=== PATIENT | female | born 1980 | race Caucasian/White ===

== ENCOUNTER 2016-11-24 20:16 | Emergency (ER) | payer MEDICAID ==
[2016-11-24 20:32] VITALS: BP 132/89
[2016-11-24] MEDS ORDERED: TETANUS/DIPHTHERIA/PERTUSSIS 0.5 ML SYRINGE IM ONE ×2 (20:46→20:55)
[2016-11-24] MEDS ORDERED: SILVER SULFADIAZINE CREAM 25 GM TUBE TOP STA (20:47)
--- NOTE | 2016-11-24 20:49 | ED Physician Documentation ---
PD HPI MAJOR BURN - Stated complaint Stated Complaint: BURN ON FINGER - Chief complaint Chief Complaint: Burn - History obtained from History obtained from: Patient - History of Present Illness Timing - onset: Other (Cooking at home about 4 hours ago and got a hot oil burn on the right fourth finger dorsally. 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, Tubal ligation, Other - Present Medications Home Medications: Ambulatory Orders Medication Instructions Recorded Confirmed Ferrous Sulfate [Iron Supplement] 325 mg ORAL DAILY 10/25/14 11/24/16 Multivitamin [Daily Multiple 1 cap ORAL BIDAC 10/25/14 11/24/16 Vitamin] - Allergies Allergies/Adverse Reactions: Allergies Allergy/AdvReac Type Severity Reaction Status Date / Time No Known Drug Allergies Allergy Verified 11/24/16 20:28 - Social History Does the pt smoke?: Yes Smoking Status: Current every day smoker Does the pt drink ETOH?: No Does the pt have substance abuse?: No - Immunizations Immunizations are current?: Yes - POLST Patient has POLST: No PD ED PE NORMAL - Vitals Vital signs reviewed: Yes - General General: Alert and oriented X 3, No acute distress - Extremities Extremities: Other (On the dorsal part of the fourth finger on the right there is second-degree burn especially of the middle phalanx with limited range of motion due to pain.) - Neuro Neuro: Alert and oriented X 3, Normal speech - Psych Psych: Normal mood, Normal affect Results - Vitals Vitals: Vital Signs - 24 hr 11/24/16 20:29 Temperature 36.4 C L Heart Rate 90 Respiratory 16 Rate Blood Pressure 132/89 H O2 Saturation 100 Oxygen O2 Source Room air PD MEDICAL DECISION MAKING - ED course ED course: She presents with second-degree burn to the dorsum of the fourth right finger. Range of motion exercises were encouraged. Otherwise this can be treated conservatively. She declined prescription pain medication. Tetanus was updated. Departure - Departure Disposition: 01 Home, Self Care Clinical Impression: Burn of hand Qualifiers: Encounter type: initial encounter Laterality: right Burn degree: second degree Qualified Code(s): T23.201A - Burn of second degree of right hand, unspecified site, initial encounter Condition: Good Record reviewed to determine appropriate education?: Yes Instructions: ED Burn D 2nd Comments: Keep the current dressing on for a day, after that you can wash it briefly with soap and water and then apply bacitracin ointment which is available over-the- counter and keep it covered. As discussed he should start doing range of motion exercises gently within the next few days to prevent loss of function. Return for signs of infection which would include redness, drainage, increased pain or fever. Your blood pressure was elevated today on check into the emergency department. This does not mean that you have hypertension, it is a common phenomenon to come to the emergency department and have elevated blood pressure. I recommend that she see her primary care physician within the week to have it rechecked when you are feeling better.
[2016-11-24] MEDS ORDERED: SILVER SULFADIAZINE CREAM 25 GM TUBE TOP ONE (20:55)
== END 2016-11-24 21:08 | disposition home or self-care (01) ==
LOC: ED 20:16
DX: T23.221A Burn of second degree of single right finger (nail) except thumb, initial encounter (principal); T31.0 Burns involving less than 10% of body surface; X10.2XXA Contact with fats and cooking oils, initial encounter; Y93.G3 Activity, cooking and baking; Y92.009 Unspecified place in unspecified non-institutional (private) residence as the place of occurrence of the external cause; Z23 Encounter for immunization; I10 Essential (primary) hypertension; F17.200 Nicotine dependence, unspecified, uncomplicated
CPT/HCPCS: 90471; 90715; 99282; 99283; A9270

== ENCOUNTER 2018-03-09 17:34 | Emergency (ER) | payer MEDICAID ==
--- NOTE | 2018-03-09 18:39 | XRAY Report ---
Reason: pain Procedure Date: 03/09/2018 Accession Number: [id number] / [id number] Procedure: XR - Foot 3 View RT CPT Code: FULL RESULT: EXAM: RIGHT FOOT RADIOGRAPHY EXAM DATE: 03/09/2018 06:09 PM. CLINICAL HISTORY: Right foot pain. Inversion injury. COMPARISON: None. TECHNIQUE: 3 views. FINDINGS: Bones: No acute fracture or bony lesion. Plantar calcaneal spur. Joints: Normal. No subluxations. Soft Tissues: Soft tissue edema. No radiopaque foreign bodies. IMPRESSION: 1. No acute osseous abnormalities. RADIA
--- NOTE | 2018-03-09 18:41 | XRAY Report ---
Reason: pain Procedure Date: 03/09/2018 Accession Number: [id number] / [id number] Procedure: XR - Ankle 3 View RT CPT Code: FULL RESULT: EXAM: RIGHT ANKLE RADIOGRAPHY EXAM DATE: 03/09/2018 06:09 PM. CLINICAL HISTORY: Inversion injury. Right foot pain. COMPARISON: None. TECHNIQUE: 3 views. FINDINGS: Bones: No acute fracture or bony lesion. Small plantar calcaneal spur. Joints: Normal. No effusion. No subluxations. The ankle mortise is normally aligned. Soft Tissues: Soft tissue swelling. IMPRESSION: 1. No acute osseous abnormalities. RADIA
[2018-03-09 19:33] VITALS: BP 134/78
--- NOTE | 2018-03-09 20:02 | ED Physician Documentation ---
PD HPI LOWER EXT INJURY - Stated complaint Stated Complaint: R FOOT PX - Chief complaint Chief Complaint: Ext Problem - History obtained from History obtained from: Patient - History of Present Illness PD HPI LOW EXT INJURY LOCATION: Right, Ankle, Foot Type of injury: Twist Where injury occurred: Home Timing - onset: Enter time (15:30), Today Timing - duration: Hours Timing - details: Abrupt onset Pain level max: 10 Pain level now: 7 Improved by: Rest Worsened by: Moving, Palpating Associated symptoms: No: Weakness, Numbness, Tingling, Swelling, Discolored Similar symptoms before: Has not had sx before Recently seen: Not recently seen - Additional information Additional information: while walking in kitchen, patient put weight onto right foot and the foot twisted at the ankle, causing sudden onset right foot and ankle pain. Pain has steadily progressed during the day, no improvement with ibuprofen. She says she is unable to weight-bear Review of Systems Musculoskeletal: reports: Extremity pain, Joint pain, Pain with weight bearing. 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, Tubal ligation, Other - Present Medications Home Medications: Ambulatory Orders Medication Instructions Recorded Confirmed Ferrous Sulfate [Iron Supplement] 325 mg ORAL DAILY 10/25/14 11/24/16 Multivitamin [Daily Multiple 1 cap ORAL BIDAC 10/25/14 11/24/16 Vitamin] Hydrocodone/Acetaminophen 1 - 2 each PO Q6H PRN #14 tablet 03/09/18 [Hydrocodon-Acetaminophen 5-325] - Allergies Allergies/Adverse Reactions: Allergies Allergy/AdvReac Type Severity Reaction Status Date / Time No Known Drug Allergies Allergy Verified 03/09/18 17:47 - Social History Does the pt smoke?: Yes Smoking Status: Current every day smoker Does the pt drink ETOH?: No Does the pt have substance abuse?: No - Immunizations Immunizations are current?: Yes - POLST Patient has POLST: No PD ED PE NORMAL - Vitals Vital signs reviewed: Yes - General General: Alert and oriented X 3, No acute distress (NAD at rest, but pain is reproducible with palpation of foot and ankle (right)), Well developed/nourished - Derm Derm: Normal color, Warm and dry - Extremities Extremities: No deformity, No edema, Other (reports tenderness with any palpation (including without applying pressure beyond the weight of my hand to check PT/DP pulses) diffusely right foot and ankle) - Neuro Neuro: No motor deficit, No sensory deficit Results - Vitals Vitals: Vital Signs - 24 hr 03/09/18 03/09/18 03/09/18 17:44 19:31 19:56 Temperature 37.4 C Heart Rate 110 H 83 Respiratory 20 18 17 Rate Blood Pressure 153/84 H 134/78 H O2 Saturation 100 100 03/09/18 20:31 Temperature Heart Rate Respiratory 17 Rate Blood Pressure O2 Saturation Oxygen O2 Source Room air - Rads (name of study) right foot xrays Radiology: Prelim report reviewed, See rad report right ankle xray Radiology: Prelim report reviewed, See rad report PD MEDICAL DECISION MAKING - ED course Complexity details: reviewed results, re-evaluated patient, considered differential, d/w patient Departure - Departure Disposition: 01 Home, Self Care Clinical Impression: Sprain of foot, right, Sprain of ankle, right Condition: Good Instructions: ED Crutch Walking, ED Sprain Foot, ED Sprain Ankle Follow-Up: [facility] [Provider Group] [facility] [Provider Group] Prescriptions: Hydrocodone/Acetaminophen [Hydrocodon-Acetaminophen 5-325] 1 - 2 each PO Q6H PRN #14 tablet PRN Reason: pain
[2018-03-09] MEDS ORDERED: HYDROcod/ACETAM 5/325 MG TABLET PO STA (20:12)
== END 2018-03-09 20:47 | disposition home or self-care (01) ==
LOC: ED 17:34
DX: S93.601A Unspecified sprain of right foot, initial encounter (principal); S93.401A Sprain of unspecified ligament of right ankle, initial encounter; X50.1XXA Overexertion from prolonged static or awkward postures, initial encounter; Y93.01 Activity, walking, marching and hiking; Y92.89 Other specified places as the place of occurrence of the external cause; I10 Essential (primary) hypertension; F17.200 Nicotine dependence, unspecified, uncomplicated
CPT/HCPCS: 73610; 73630; 99283; A9270

== ENCOUNTER 2018-04-29 18:39 | Observation (INO) | payer MEDICAID ==
[2018-04-29 19:24] LABS: ALBUMIN 4.1 g/dL (3.2-5.5); ALBUMIN/GLOBULIN RATIO 1.2 (1.0-2.2); BILIRUBIN,TOTAL 0.5 mg/dL (0.2-1.0); CALCIUM 8.6 mg/dL (8.5-10.3); CREATININE 0.8 mg/dL (0.4-1.0); TOTAL PROTEIN 7.5 g/dL (6.7-8.2)
--- NOTE | 2018-04-29 19:30 | XRAY Report ---
Reason: Chest Pain Procedure Date: 04/29/2018 Accession Number: [id number] / [id number] Procedure: XR - Chest 1 View X-Ray CPT Code: 17932 FULL RESULT: EXAM: CHEST RADIOGRAPHY EXAM DATE: 04/29/2018 07:21 PM. CLINICAL HISTORY: Chest Pain. COMPARISON: CHEST 2 VIEW PA/LAT 12/08/2015 8:28 PM. TECHNIQUE: 1 view. FINDINGS: Cardiac leads overlie the chest. Heart size is normal. No consolidation, pleural effusion, or pneumothorax. IMPRESSION: Normal single view chest. RADIA
[2018-04-29 19:36] LABS: BASOPHILS # (AUTO) 0.1 10^3/uL (0.0-0.1); BASOPHILS % (AUTO) 1.2 %; EOSINOPHILS # (AUTO) 0.1 10^3/uL (0.0-0.7); EOSINOPHILS % (AUTO) 2.1 %; LYMPHOCYTES # (AUTO) 2.2 10^3/uL (1.5-3.5); LYMPHOCYTES % (AUTO) 43.5 %; MEAN CORPUSCULAR HEMOGLOBIN 14.6 pg (27.0-31.0); MEAN CORPUSCULAR HGB CONC 26.6 g/dL (32.0-36.0); MEAN CORPUSCULAR VOLUME 54.7 fL (81.0-99.0); MEAN PLATELET VOLUME 8.2 fL (7.9-10.8); MONOCYTES # (AUTO) 0.6 10^3/uL (0.0-1.0); NEUTROPHILS # (AUTO) 2.1 10^3/uL (1.5-6.6); NEUTROPHILS % (AUTO) 42.2 %; PLT - PLATELET COUNT 187 10^3/uL (130-450); RED BLOOD COUNT 4.31 10^6/uL (4.20-5.40); RED CELL DISTRIBUTION WIDTH 20.7 % (12.0-15.0); WHITE BLOOD COUNT 5.1 x10^3/uL (4.8-10.8)
[2018-04-29 19:39] LABS: HGB - HEMOGLOBIN 6.3 g/dL (12.0-16.0)
[2018-04-29] MEDS ORDERED: ALBUTEROL NEB 2.5 MG/3 ML INH STA (19:39)
[2018-04-29] MEDS ORDERED: SODIUM CHLORIDE 0.9% 1,000 ML IV ONE (19:39)
--- NOTE | 2018-04-29 19:40 | ED Physician Documentation ---
History of Present Illness - Stated complaint Stated Complaint: COUGH/CONGESTION - Chief complaint Chief Complaint: Resp - History obtained from History obtained from: Patient - History of Present Illness Timing: How many weeks ago (1) Pain level max: 3 Pain level now: 1 Improved by: rest Worsened by: exertion - Additonal information Additional information: 37-year-old female presents to the emergency department with feeling tired and weak for the past several weeks. Unable to sleep her floors or walk up stairs without stopping to catch her breath. Has a history of iron deficiency anemia and was receiving iron. She has also had fevers and cough over the past several days. Feels like her chest is tight and occasionally has chest pain with exertion. Review of Systems Ten Systems: 10 systems reviewed and negative Constitutional: reports: Fever Nose: reports: Rhinorrhea / runny nose, Congestion Cardiac: reports: Chest pain / pressure (sharp, sometimes pressure) Respiratory: reports: Cough GI: denies: Abdominal Pain, Nausea, Vomiting, Diarrhea, Hematemesis, Bloody / black stool : reports: Vaginal bleeding (has a history of heavy menses, thought to cause her anemia) Skin: denies: Rash Musculoskeletal: denies: Neck pain Neurologic: denies: Focal weakness, Numbness, Syncope, Seizure, Confused, Headache PD PAST MEDICAL HISTORY - Past Medical History Cardiovascular: Hypertension Respiratory: None Neuro: Headaches Endocrine/Autoimmune: None GI: None 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 : Frequency HEENT: None Psych: None Musculoskeletal: None Derm: None - Past Surgical History 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, Tubal ligation, Other - Present Medications Home Medications: Ambulatory Orders Medication Instructions Recorded Confirmed Multivitamin [Daily Multiple 1 cap ORAL BIDAC 10/25/14 11/24/16 Vitamin] - Allergies Allergies/Adverse Reactions: Allergies Allergy/AdvReac Type Severity Reaction Status Date / Time No Known Drug Allergies Allergy Verified 04/29/18 18:52 - Social History Does the pt smoke?: Yes Smoking Status: Current every day smoker Does the pt drink ETOH?: No Does the pt have substance abuse?: No - Immunizations Immunizations are current?: Yes - POLST Patient has POLST: No PD ED PE NORMAL - Vitals Vital signs reviewed: Yes - General General: Alert and oriented X 3, No acute distress, Other (Pale appearing female. Pale conjunctiva) - HEENT HEENT: PERRL, Ears normal, Moist mucous membranes, Pharynx benign - Neck Neck: Supple, no meningeal sign - Cardiac Cardiac: RRR - Respiratory Respiratory: No respiratory distress, Other (Mild wheezing bilaterally) - Abdomen Abdomen: Soft, Non tender, Non distended - Rectal Rectal: Other (Patient adamantly refuses a rectal exam.) - Derm Derm: Warm and dry, No rash - Extremities Extremities: No edema, No calf tenderness / cord - Neuro Neuro: Alert and oriented X 3 Results - Vitals Vitals: Vital Signs - 24 hr 04/29/18 04/29/18 04/29/18 18:51 19:00 20:35 Temperature 38.1 C H Heart Rate 111 H 97 97 Respiratory 20 16 14 Rate Blood Pressure 150/89 H 137/77 H O2 Saturation 100 100 04/29/18 04/29/18 20:38 20:40 Temperature Heart Rate 98 Respiratory 18 102 H Rate Blood Pressure 126/73 O2 Saturation 99 Oxygen O2 Source Room air - EKG (time done) 1857 Rate: Rate (enter#) (101) Rhythm: Sinus tachycardia [place]: Normal Intervals: Normal ID QRS: Normal Ischemia: Normal ST segments - Labs Labs: Laboratory Tests 04/29/18 04/29/18 04/29/18 19:05 19:05 19:05 WBC 5.1 RBC 4.31 Hgb 6.3 L* Hct 23.6 L MCV 54.7 L MCH 14.6 L MCHC 26.6 L RDW 20.7 H Plt Count 187 MPV 8.2 Neut # (Auto) 2.1 Lymph # (Auto) 2.2 [place] # (Auto) 0.6 Eos # (Auto) 0.1 Baso # (Auto) 0.1 Absolute Nucleated RBC 0.00 Band Neuts % (Manual) Not Reportable Abnorm Lymph % (Manual) Not Reportable Nucleated RBC % 0.1 Neutrophils # (Manual) Not Reportable Lymphocytes # (Manual) Not Reportable Monocytes # (Manual) Not Reportable Eosinophils # (Manual) Not Reportable Basophils # (Manual) Not Reportable Differential Comment MANUAL=AUTO DIFF Manual Slide Review Indicated Platelet Estimate NORMAL (130-450,000) Platelet Morphology 1+ LARGE PLATELETS RBC Morph Micro Appear 3+ MICROCYTOSIS Sodium 131 L Potassium 3.4 L Chloride 99 L Carbon Dioxide 23 Anion Gap 9.0 BUN 8 Creatinine 0.8 Estimated GFR (MDRD) 80 L Glucose 99 Calcium 8.6 Iron TIBC % Saturation Transferrin Total Bilirubin 0.5 AST 28 ALT 17 Alkaline Phosphatase 20 L Troponin I < 0.04 Total Protein 7.5 Albumin 4.1 Globulin 3.4 Albumin/Globulin Ratio 1.2 Lipase 40 Influenza A (Rapid) Influenza B (Rapid) 04/29/18 04/29/18 19:05 19:46 WBC RBC Hgb Hct MCV MCH MCHC RDW Plt Count MPV Neut # (Auto) Lymph # (Auto) [place] # (Auto) Eos # (Auto) Baso # (Auto) Absolute Nucleated RBC Band Neuts % (Manual) Abnorm Lymph % (Manual) Nucleated RBC % Neutrophils # (Manual) Lymphocytes # (Manual) Monocytes # (Manual) Eosinophils # (Manual) Basophils # (Manual) Differential Comment Manual Slide Review Platelet Estimate Platelet Morphology RBC Morph Micro Appear Sodium Potassium Chloride Carbon Dioxide Anion Gap BUN Creatinine Estimated GFR (MDRD) Glucose Calcium Iron 9 L TIBC 479 H % Saturation 2 L Transferrin 342 Total Bilirubin AST ALT Alkaline Phosphatase Troponin I Total Protein Albumin Globulin Albumin/Globulin Ratio Lipase Influenza A (Rapid) Negative Influenza B (Rapid) Negative - Rads (name of study) Chest x-ray Radiology: Prelim report reviewed, EMP read contemporaneously, See rad report (No acute disease) PD MEDICAL DECISION MAKING - ED course Complexity details: reviewed old records, reviewed results, re-evaluated patient, considered differential, d/w patient, d/w family, d/w framing consultant ED course: 37-year-old female presents to the emergency department with what appears to be symptomatic anemia. She is easily fatigued and out of breath. Has a history of iron deficiency anemia from heavy menstrual bleeding. Adamantly refuses a rectal examination here. Given her symptoms of chest pain and exertional shortness of breath and very limited ability to walk across the room without becoming fatigued, will place in observation for blood transfusion. Cardiac enzymes are negative. No acute findings on EKG. Discussed the case with the hospitalist who accepts. This document was made in part using voice recognition software. While efforts are made to proofread this document, sound alike and grammatical errors may occur. Departure - Departure Disposition: ED Place in Observation Clinical Impression: Viral syndrome, Symptomatic anemia, Iron deficiency Condition: Stable
[2018-04-29 20:09] LABS: DIFFERENTIAL COMMENT MANUAL=AUTO DIFF; PLATELET ESTIMATE, MANUAL NORMAL (130-450,000) (NORMAL); PLATELET MORPHOLOGY 1+ LARGE PLATELETS (NORMAL)
[2018-04-29 20:16] LABS: % IRON SATURATION 2 % (20-50); IRON 9 ug/dL (28-170); TOTAL IRON BINDING CAPACITY 479 ug/dL (250-450); TRANSFERRIN 342 mg/dL (192-382)
[2018-04-29] MEDS ORDERED: NICOTINE 14 MG PATCH TOP STA (21:38)
[2018-04-29] MEDS ORDERED: POTASSIUM CHLORIDE 20 MEQ TABLET PO STA (21:42)
[2018-04-29] MEDS: SODIUM CHLORIDE FLUSH 0.9% 10 ML SYRINGE IVP PRN (22:24)
[2018-04-30] MEDS ORDERED: SODIUM CHLORIDE 0.9% 500 ML IV ONE (01:06)
[2018-04-30] MEDS: SODIUM CHLORIDE FLUSH 0.9% 10 ML SYRINGE IVP SCH ×2 (01:26→08:26)
[2018-04-30] MEDS: SODIUM CHLORIDE FLUSH 0.9% 10 ML SYRINGE IVP PRN (01:26)
[2018-04-30] MEDS ORDERED: ACETAMINOPHEN 325 MG TABLET PO PRN (03:01)
--- NOTE | 2018-04-30 03:25 | HISTORY & PHYSICAL EXAMINATION ---
Chief Complaint - Chief Complaint Chief Complaint: fatigue, random chest pain History of Present Illness - Admitted From Admitted From:: [facility] ED - History Obtained From History obtained from: patient - History of Present Illness HPI Comment/Other: Patient is a 37 y/o female who presented to the ED with complain of random wandering chest pain which has been going on for about 1 week. She has also been very fatigued to the point where she is having difficulty picking up a pot of coffee. She gets significantly winded going up a flight of stairs. She is unable to walk a block. She denies regular NSAID use. She denies dark tarry stool or blood in her stools. She rarely drinks alcohol. She reports dizziness sometimes. She reports always feeling "freezing" cold but has a strong craving for ice (pica). She reports having very heavy periods. She had similar symptoms in 2014 for which she was diagnosed with iron deficiency anemia. She was seen by hem/onc and went to the [facility] for iron infusions. She used to be on iron supplements but stopped because of constipation. She would then spuriously take them. She was found to have a hemoglobin of 6.3 with low iron level, high TIBC and low iron saturation levels. Her last Hgb in our system was 13 in November of 2014. As a result of these findings she is being admitted as observation for PRBC transfusion. She denies abd pain, nausea, vomiting or diarrhea. 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 Father: Grave's Disease, Hypertension. Brother 1: Dideased 2/2 MVA. Brother 2: Multiple chronic illness. children: asthma Living arrangement: At home Living Situation: With family - Substance History Use: Uses substance without health or social issues: NONE ("candy" (cannabinoid edibles)), Tobacco - POLST Patient has POLST: No POLST Status: Full Code Meds/Allgy - Home Medications Home Medications: Ambulatory Orders Medication Instructions Recorded Confirmed Multivitamin [Daily Multiple 1 cap ORAL BIDAC 10/25/14 11/24/16 Vitamin] - Allergies Allergies/Adverse Reactions: Allergies Allergy/AdvReac Type Severity Reaction Status Date / Time No Known Drug Allergies Allergy Verified 04/29/18 18:52 Review of Systems - Constitutional Constitutional: reports: Fatigue, Chills - Eyes Eyes: denies: Pain, Blurred vision, Dipolpia - Ears, Nose & Throat Ears, Nose & Throat: denies: Ear pain, Hearing loss, Nasal pain, Sore throat - Cardiovascular Cariovascular: reports: Chest pain, Lightheadedness - Respiratory Respiratory: reports: Cough, SOB with exertion. denies: Wheezing - Gastrointestinal Gastrointestinal: denies: Abdominal pain, Abdominal distention, Diarrhea, Black stools, Bloody stools, Nausea, Vomiting - Genitourinary Genitourinary: denies: Dysuria, Frequency, Urgency, Hematuria - Musculoskeletal Musculoskeletal: denies: Muscle pain, Back pain - Neurological Neurological: denies: Headache, Numbness - Psychiatric Psychiatric: denies: Depression, Anxiety - Endocrine Endocrine: denies: Polyuria, Polydypsia, Polyphagia - Hematologic/Lymphatic Hematologic/Lymphatic: reports: Anemia Prior Level of Functionality: She is completely independent in activities of daily living. She lives with her family. Has 4 children. Exam - Vital Signs Vital Signs: Vital Signs x48h Temp Pulse Pulse Resp BP BP Pulse Ox 04/30/18 02:50 37.2 C 86 18 130/52 L 04/30/18 02:20 37.4 C 90 18 123/60 04/30/18 01:13 37.7 C H 90 18 124/62 04/30/18 00:14 37.4 C 91 16 127/70 100 04/29/18 22:50 37.4 C 93 18 126/67 04/29/18 22:34 37.8 C H 97 16 125/62 04/29/18 22:32 37.8 C H 97 16 125/62 100 04/29/18 21:45 98.6 C H 96 18 130/65 100 04/29/18 20:40 102 H 04/29/18 20:38 98 18 126/73 99 04/29/18 20:35 97 14 - Physical Exam General Appearance: positive: No acute distress Eyes Bilateral: positive: Normal inspection, PERRL, EOMI ENT: positive: ENT inspection nml, Pharynx nml, No signs of dehydration Neck: positive: Nml inspection, Thyroid nml, No JVD, Trachea midline, Thyromegaly Respiratory: positive: Chest non-tender, Wheezes (smoker) Cardiovascular: positive: Tachycardia Abdomen: positive: Non-tender, No organomegaly, Nml bowel sounds, No distention. negative: Guarding, Rebound Rectal: positive: Other (Declined hemoccult) Skin: positive: Color nml, No rash, Warm, Dry Extremities: positive: Non-tender, Full ROM, Nml appearance Neurologic/Psychiatric: positive: Oriented x3 Conclusion/Plan - Problem List (1) Iron deficiency anemia Conclusion/Plan: Patient being transfused 2 units of PRBC Patient will need to resume and be consistent with iron supplements regimen upon discharge Patient will likely need follow up at the [facility] again for Iron infusions. Patient declined guaic test for blood (2) Hypokalemia Conclusion/Plan: KDur 20mg po given. Will recheck this am. Will check mg level as well (3) Tobacco abuse Conclusion/Plan: Nicotine patch ordered (4) Chest pain Conclusion/Plan: Atypical. Likely 2/2 anemia. Troponin trended and negative X2. - Lab Results Fish Bones: 04/29/18 19:05 04/29/18 19:05 Core Measures - Anticipated LOS I expect patient to be DC'd or transferred within 96 hours.: Yes - DVT/VTE - Prophylaxis VTE/DVT Device ordered at admit?: Yes VTE/DVT Prophylaxis med ordered at admit?: Yes
[2018-04-30] MEDS: SODIUM CHLORIDE 0.9% 1,000 ML IV SCH ×2 (05:34→11:17)
[2018-04-30] MEDS ORDERED: POLYETHYLENE GLYCOL 3350 17 GM PACKET PO SCH (09:00)
[2018-04-30] MEDS ORDERED: ENOXAPARIN 40 MG/0.4 ML SYRINGE SUBQ SCH (09:00)
[2018-04-30 10:00] LABS: BASOPHILS # (AUTO) 0.1 10^3/uL (0.0-0.1); BASOPHILS % (AUTO) 1.4 %; EOSINOPHILS # (AUTO) 0.1 10^3/uL (0.0-0.7); EOSINOPHILS % (AUTO) 2.8 %; HGB - HEMOGLOBIN 8.3 g/dL (12.0-16.0); LYMPHOCYTES # (AUTO) 2.5 10^3/uL (1.5-3.5); LYMPHOCYTES % (AUTO) 48.6 %; MEAN CORPUSCULAR HEMOGLOBIN 17.9 pg (27.0-31.0); MEAN CORPUSCULAR HGB CONC 29.6 g/dL (32.0-36.0); MEAN CORPUSCULAR VOLUME 60.5 fL (81.0-99.0); MEAN PLATELET VOLUME 8.5 fL (7.9-10.8); MONOCYTES # (AUTO) 0.5 10^3/uL (0.0-1.0); MONOCYTES % (AUTO) 9.4 %; NEUTROPHILS # (AUTO) 1.9 10^3/uL (1.5-6.6); NEUTROPHILS % (AUTO) 37.8 %; PLT - PLATELET COUNT 154 10^3/uL (130-450); RED BLOOD COUNT 4.63 10^6/uL (4.20-5.40); RED CELL DISTRIBUTION WIDTH 29.2 % (12.0-15.0); WHITE BLOOD COUNT 5.1 x10^3/uL (4.8-10.8)
[2018-04-30 10:05] LABS: ALBUMIN 3.5 g/dL (3.2-5.5); ALBUMIN/GLOBULIN RATIO 1.3 (1.0-2.2); BILIRUBIN,TOTAL 0.6 mg/dL (0.2-1.0); CALCIUM 8.1 mg/dL (8.5-10.3); CREATININE 0.8 mg/dL (0.4-1.0); MAGNESIUM 2.1 mg/dL (1.7-2.8); TOTAL PROTEIN 6.2 g/dL (6.7-8.2)
[2018-04-30 10:28] LABS: DIFFERENTIAL COMMENT MANUAL=AUTO DIFF
[2018-04-30] MEDS ORDERED: FERROUS GLUCONATE 324 MG TABLET PO SCH (11:00)
[2018-04-30 12:38] VITALS: BP 122/80
--- NOTE | 2018-04-30 13:12 | Discharge Plan ---
Discharge Plan Disposition: 01 Home, Self Care Condition: Good Prescriptions: Ferrous Gluconate [Fergon] 270 mg PO BID #60 tablet Fluticasone [Flonase] 1 sprays LUCERO DAILY #1 bottle Nicotine 14 mg Patch [Nicoderm] 1 each TOP Q24H #7 patch Nicotine 7 mg Patch [Nicoderm] 1 each TOP Q24H #7 patch Oxymetazoline HCl [Afrin] 15 ml NS BID #1 spray Psyllium [Metamucil] 1 each PO DAILY #30 packet Diet: Regular Activity Restrictions: Activity as Tolerated Shower Restrictions: No Driving Restrictions: No Instruction Topics: Psyllium granules or powder for solution, Iron tablets capsules extended-release tablets, Nicotine skin patches, Anemia, Supplements Iron, ED Anemia Iron Deficiency Additional Instructions or Follow Up instructions: You had complaints of cough and chest pain and were found to have very low blood levels. You have a known history of iron deficiency anemia which was confirmed again today by your laboratory results. We were not able to obtain a stool specimen to rule out GI bleeding. You stated that your menstrual cycles have been heavy and with clots. I would like your primary provider to order a hematology consult and consider further work up for your heavy menstrual cycles. I have sent ferrous gluconate at 270mg twice daily, and Metamucil to the pharmacy to continue to building up your blood supplies. For your cough, the most likely reason is due to post nasal drip caused by long- term smoking. Please take 6 doses of 3 days of Afrin spray, the stop. Continue Flonase spray daily to prevent sinusitis. I have also sent 2 doses of nicotine patches. Your PCP can possibly prescribed an oral medication to also help with smoking cessation (stop smoking) if needed. Please see your PCP within one week. Tell them you were hospitalized in order to get a sooner appointment. No Smoking: If you smoke, Please STOP! Call for help. Follow-up with: Tara Cervantes ARNP [Primary Care Provider] -
--- NOTE | 2018-04-30 13:19 | DISCHARGE SUMMARY ---
Discharge Summary Admit Date: 04/29/18 Discharge Date: 04/30/18 Discharging Provider: YOABNI Jade Primary Care Provider: Tara Cervantes Code Status: Attempt Resuscitation Condition at Discharge: Good Discharge Disposition: Home, Self Care - DIAGNOSES Admission Diagnoses: Iron deficiency anemia, unspecified (D50.9) Hypokalemia (E87.6) Tobacco use (Z72.0) Chest pain, unspecified (R07.9) Discharge Diagnoses with Status of Each Condition: Iron deficiency anemia (D50.9) Improved, patient is to continue supplemental iron at home. Hypokalemia (E87.6) resolved. Tobacco abuse (Z72.0) Patient will plan on quitting, nicotine patches sent to pharmacy for home use. Chest pain (R07.9) resolved. Encounter for blood transfusion (Z51.89) status post 2 units, no reactions, improved H/H. Menstrual flow excessive (N92.0) chronic, LMP ~ 04/14/18. Sinusitis (J32.9) chronic, patient was sent nasal sprays for home use. - HPI History of Present Illness: HPI per Dr. Dumont: Patient is a 37 y/o female who presented to the ED with complain of random wandering chest pain which has been going on for about 1 week. She has also been very fatigued to the point where she is having difficulty picking up a pot of coffee. She gets significantly winded going up a flight of stairs. She is unable to walk a block. She denies regular NSAID use. She denies dark tarry stool or blood in her stools. She rarely drinks alcohol. She reports dizziness sometimes. She reports always feeling "freezing" cold but has a strong craving for ice (pica). She reports having very heavy periods. She had similar symptoms in 2014 for which she was diagnosed with iron deficiency anemia. She was seen by hem/onc and went to the [facility] for iron infusions. She used to be on iron supplements but stopped because of constipation. She would then spuriously take them. She was found to have a hemoglobin of 6.3 with low iron level, high TIBC and low iron saturation levels. Her last Hgb in our system was 13 in November of 2014. As a result of these findings she is being admitted as observation for PRBC transfusion. She denies abd pain, nausea, vomiting or diarrhea. - HOSPITAL COURSE Hospital Course: The patient stayed one night and was transfused with 2 units of blood with an improvement in her H/H. She was medically stable and transported home. She was planning on smoking cessation, so prescriptions for nicotine patches were sent to her pharmacy along with iron supplement that she should continue at home. - ALLERGIES Allergies/Adverse Reactions: Allergies Allergy/AdvReac Type Severity Reaction Status Date / Time No Known Drug Allergies Allergy Verified 04/29/18 18:52 - MEDICATIONS Home Medications: Ambulatory Orders Medication Instructions Recorded Confirmed Ferrous Gluconate [Fergon] 270 mg PO BID #60 tablet 04/30/18 Fluticasone [Flonase] 1 sprays LUCERO DAILY #1 bottle 04/30/18 Nicotine 14 mg Patch [Nicoderm] 1 each TOP Q24H #7 patch 04/30/18 Nicotine 7 mg Patch [Nicoderm] 1 each TOP Q24H #7 patch 04/30/18 Oxymetazoline HCl [Afrin] 15 ml NS BID #1 spray 04/30/18 Psyllium [Metamucil] 1 each PO DAILY #30 packet 04/30/18 - PHYSICAL EXAM AT DISCHARGE General Appearance: positive: No acute distress, Alert Eyes Bilateral: positive: Normal inspection, PERRL ENT: positive: Pharynx nml, No signs of dehydration Neck: positive: Thyroid nml, No JVD Respiratory: positive: Chest non-tender, No respiratory distress, Breath sounds nml Cardiovascular: positive: Regular rate & rhythm, No murmur, No gallop Peripheral Pulses: positive: 2+ Abdomen: positive: Non-tender, Nml bowel sounds Back: positive: Nml inspection Skin: positive: No rash, Warm, Dry, Pallor Extremities: positive: Non-tender, Full ROM, Nml appearance, No pedal edema Neurologic/Psychiatric: positive: Oriented x3, CN's nml (2-12), Motor nml, Sensation nml, Mood/affect nml Reflexes: Bicep (R): 3+, Bicep (L): 3+ - LABS Result Diagrams: 04/30/18 09:40 04/30/18 09:40 - DIAGNOSTIC IMAGING Diagnostic Imaging Results: Final report reviewed Diagnostic Imaging Results Comments: EXAM: CHEST RADIOGRAPHY EXAM DATE: 04/29/2018 07:21 PM IMPRESSION: Normal single view chest. - SEPSIS Current Stage of Sepsis: Ruled out - FOLLOW UP Follow Up: Disposition: Home Prescriptions: Ferrous Gluconate [Fergon] 270 mg PO BID #60 tablet Fluticasone [Flonase] 1 sprays LUCERO DAILY #1 bottle Nicotine 14 mg Patch [Nicoderm] 1 each TOP Q24H #7 patch Nicotine 7 mg Patch [Nicoderm] 1 each TOP Q24H #7 patch Oxymetazoline HCl [Afrin] 15 ml NS BID #1 spray Psyllium [Metamucil] 1 each PO DAILY #30 packet Additional Instructions or Follow Up instructions: You had complaints of cough and chest pain and were found to have very low blood levels. You have a known history of iron deficiency anemia which was confirmed again today by your laboratory results. We were not able to obtain a stool specimen to rule out GI bleeding. You stated that your menstrual cycles have been heavy and with clots. I would like your primary provider to order a hematology consult and consider further work up for your heavy menstrual cycles. I have sent ferrous gluconate at 270mg twice daily, and Metamucil to the pharmacy to continue to building up your blood supplies. For your cough, the most likely reason is due to post nasal drip caused by long- term smoking. Please take 6 doses of 3 days of Afrin spray, the stop. Continue Flonase spray daily to prevent sinusitis. I have also sent 2 doses of nicotine patches. Your PCP can possibly prescribed an oral medication to also help with smoking cessation (stop smoking) if needed. Please see your PCP within one week. Tell them you were hospitalized in order to get a sooner appointment. - TIME SPENT Time Spent in Discharge (Minutes): 45
== END 2018-04-30 14:22 | disposition home or self-care (01) ==
LOC: ED 18:39 → MS2 21:34
PROVIDERS: ADMIT Internal Medicine; ATTEND Nurse Practitioner
DX: D50.9 Iron deficiency anemia, unspecified (principal); E87.6 Hypokalemia; R07.9 Chest pain, unspecified; N92.0 Excessive and frequent menstruation with regular cycle; J32.9 Chronic sinusitis, unspecified; I10 Essential (primary) hypertension; Z72.89 Other problems related to lifestyle; F17.200 Nicotine dependence, unspecified, uncomplicated
CPT/HCPCS: 36415; 36430; 71045; 80053; 83540; 83690; 83735; 84466; 84484; 85025; 86850; 86900; 86901; 86920; 87275; 87276; 93005; 94640; 96360; 96372; 99284; A9270; G0378; J1650; P9016; 82272; 99285

== ENCOUNTER 2018-06-12 21:52 | Outpatient (CLI) | payer MEDICAID ==
--- NOTE | 2018-06-14 11:15 | Ultrasound Report ---
Reason: HEAVY MENSTRUATION,ANEMIA Procedure Date: 06/12/2018 Accession Number: [id number] / [id number] Procedure: US - Pelvic w/Transvaginal CPT Code: FULL RESULT: EXAM: PELVIC ULTRASOUND EXAM DATE: 06/12/2018 10:01 PM. CLINICAL HISTORY: Heavy menstruation, anemia. COMPARISON: None. TECHNIQUE: Realtime transabdominal pelvic scan performed to identify the uterus and adnexa and as an overview of other pelvic structures, followed by transvaginal scan to provide greater detail of the uterus and adnexa, with static image documentation. FINDINGS: Uterus: 10.9 x 7.1 x 7.8 cm, volume 312.5 mL. Anteverted position. Normal overall size and echotexture. Masses: 4.7 x 4.7 x 4.8 cm left fundal/body submucosal fibroid is noted. Endometrium is displaced posteriorly by the large submucosal mass. Endometrium: 0.8 cm. No endometrial mass or polyp.Significant mass effect upon the endometrium from the large submucosal fibroid is noted. Cervix: Unremarkable. Right Ovary: 3.8 x 2.8 x 2.9 cm, volume 16.2 mL. Normal echotexture and blood flow. Left Ovary: 3.5 x 1.7 x 3.8 cm, volume 12.1 mL. Normal echotexture and blood flow. Free Fluid: None. Other: None. IMPRESSION: 1. No endometrial mass or polyp. 2. Large 4.8 cm submucosal left fundal uterine fibroid. 3. Both ovaries and adnexa are normal. RADIA
== END 2018-06-12 21:53 | disposition home or self-care (01) ==
LOC: DI 21:52
PROVIDERS: ATTEND Nurse Practitioner Obstetrics & Gynecology
DX: N92.0 Excessive and frequent menstruation with regular cycle (principal); D64.9 Anemia, unspecified; D25.0 Submucous leiomyoma of uterus
CPT/HCPCS: 76830; 76856

== ENCOUNTER 2018-06-17 08:00 | Outpatient (CLI) | payer MEDICAID ==
[2018-06-17 21:38] LABS: BASOPHILS # (AUTO) 0.1 10^3/uL (0.0-0.1); BASOPHILS % (AUTO) 1.6 %; EOSINOPHILS # (AUTO) 0.2 10^3/uL (0.0-0.7); EOSINOPHILS % (AUTO) 2.3 %; HGB - HEMOGLOBIN 9.6 g/dL (12.0-16.0); LYMPHOCYTES # (AUTO) 3.1 10^3/uL (1.5-3.5); LYMPHOCYTES % (AUTO) 37.3 %; MEAN CORPUSCULAR HEMOGLOBIN 19.4 pg (27.0-31.0); MEAN CORPUSCULAR HGB CONC 28.8 g/dL (32.0-36.0); MEAN CORPUSCULAR VOLUME 67.4 fL (81.0-99.0); MEAN PLATELET VOLUME 8.9 fL (7.9-10.8); MONOCYTES # (AUTO) 0.5 10^3/uL (0.0-1.0); MONOCYTES % (AUTO) 6.1 %; NEUTROPHILS # (AUTO) 4.3 10^3/uL (1.5-6.6); NEUTROPHILS % (AUTO) 52.7 %; PLT - PLATELET COUNT 304 10^3/uL (130-450); RED BLOOD COUNT 4.97 10^6/uL (4.20-5.40); RED CELL DISTRIBUTION WIDTH 25.7 % (12.0-15.0); WHITE BLOOD COUNT 8.2 x10^3/uL (4.8-10.8)
[2018-06-17 21:45] LABS: PLATELET ESTIMATE, MANUAL NORMAL (130-450,000) (NORMAL); PLATELET MORPHOLOGY NORMAL APPEARANCE (NORMAL)
== END 2018-06-17 23:59 | disposition home or self-care (01) ==
LOC: LAB.N 08:00
PROVIDERS: ATTEND Nurse Practitioner Obstetrics & Gynecology
DX: D64.9 Anemia, unspecified (principal)
CPT/HCPCS: 36415; 85025

== ENCOUNTER 2018-07-13 09:37 | Outpatient (CLI) | payer MEDICAID ==
--- NOTE | 2018-07-13 13:09 | Mammography Report ---
Reason: MASTALGIA Procedure Date: 07/13/2018 Accession Number: [id number] / [id number] Procedure: ANNALISE - Diagnostic Dig Bilat CPT Code: FULL RESULT: EXAM: Diagnostic Dig Bilat DATE: 07/13/2018 10:23 AM CLINICAL HISTORY: Diagnostic examination. Right breast pain. Family history of breast cancer in the mother at age 49. TECHNIQUE: (B) - Bilateral CC, laterally exaggerated CC, MLO views were obtained. COMPARISON: None PARENCHYMAL PATTERN: (D) - The breast(s) demonstrate(s) heterogeneously dense fibroglandular parenchyma. FINDINGS: No abnormality is identified in the region of right breast retroareolar pain. There are no suspicious masses, calcifications, or areas of distortion. IMPRESSION: Negative examination. BI-RADS category 1. RECOMMENDATION: (ANNUAL) - Recommend routine annual screening mammography. Recommend initiation of screening at the age of 40. BI-RADS CATEGORY: (1) - Negative. STANDARD QUALIFYING STATEMENTS: 1. This examination was not reviewed with the aid of Computer-Aided Detection (CAD). 2. A negative or benign imaging report should not preclude biopsy if clinically suspicious findings are present. 3. Dense breasts may obscure an underlying neoplasm. 4. This examination was reviewed with the aid of 3D breast imaging (tomosynthesis).
== END 2018-07-13 09:38 | disposition home or self-care (01) ==
LOC: DI 09:37
PROVIDERS: ATTEND Nurse Practitioner Obstetrics & Gynecology
DX: N64.4 Mastodynia (principal); Z80.3 Family history of malignant neoplasm of breast; Z01.818 Encounter for other preprocedural examination; N94.4 Primary dysmenorrhea; N92.0 Excessive and frequent menstruation with regular cycle
CPT/HCPCS: 36415; 77066; 80053; 81025; 85025; 86850; 86900; 86901; 86920

== ENCOUNTER 2018-07-13 10:28 | Outpatient (CLI) | payer MEDICAID ==
[2018-07-13 10:51] LABS: HCG UR QUAL NEGATIVE
[2018-07-13 11:08] LABS: BASOPHILS # (AUTO) 0.1 10^3/uL (0.0-0.1); BASOPHILS % (AUTO) 1.3 %; EOSINOPHILS # (AUTO) 0.1 10^3/uL (0.0-0.7); EOSINOPHILS % (AUTO) 1.3 %; HGB - HEMOGLOBIN 9.9 g/dL (12.0-16.0); LYMPHOCYTES # (AUTO) 2.2 10^3/uL (1.5-3.5); LYMPHOCYTES % (AUTO) 29.7 %; MEAN CORPUSCULAR HEMOGLOBIN 18.5 pg (27.0-31.0); MEAN CORPUSCULAR HGB CONC 29.1 g/dL (32.0-36.0); MEAN CORPUSCULAR VOLUME 63.8 fL (81.0-99.0); MEAN PLATELET VOLUME 8.5 fL (7.9-10.8); MONOCYTES # (AUTO) 0.5 10^3/uL (0.0-1.0); MONOCYTES % (AUTO) 7.1 %; NEUTROPHILS # (AUTO) 4.4 10^3/uL (1.5-6.6); NEUTROPHILS % (AUTO) 60.6 %; PLT - PLATELET COUNT 365 10^3/uL (130-450); RED BLOOD COUNT 5.34 10^6/uL (4.20-5.40); RED CELL DISTRIBUTION WIDTH 20.7 % (12.0-15.0); WHITE BLOOD COUNT 7.3 x10^3/uL (4.8-10.8)
[2018-07-13 11:19] LABS: ALBUMIN 4.2 g/dL (3.2-5.5); ALBUMIN/GLOBULIN RATIO 1.2 (1.0-2.2); BILIRUBIN,TOTAL 0.4 mg/dL (0.2-1.0); CREATININE 0.7 mg/dL (0.4-1.0); TOTAL PROTEIN 7.6 g/dL (6.7-8.2)
[2018-07-13 11:22] LABS: PLATELET ESTIMATE, MANUAL NORMAL (130-450,000) (NORMAL); PLATELET MORPHOLOGY NORMAL APPEARANCE (NORMAL)
== END 2018-07-13 10:29 | disposition home or self-care (01) ==
LOC: LAB 10:28
PROVIDERS: ATTEND Obstetrics & Gynecology
DX: Z01.818 Encounter for other preprocedural examination (principal); N94.4 Primary dysmenorrhea; N92.0 Excessive and frequent menstruation with regular cycle
CPT/HCPCS: 36415; 80053; 81025; 85025; 86850; 86900; 86901; 86920

== ENCOUNTER 2018-07-15 08:17 | Day surgery (SDC) | payer MEDICAID ==
[~2018-07-15 08:17] MED LIST: ceFAZolin 2 GM/50 ML 2 GM/50 ML BAG IV ONE
[2018-07-15] MEDS ORDERED: LACTATED RINGERS 1,000 ML IV ONE ×2 (08:47→11:00)
--- NOTE | 2018-07-15 08:49 | ANESTHESIA ---
Pre-Anesthesia VS, & Labs - NPO >8 hours - Is Patient ?: No - Diagnosis menorrhagia, dysmenorrhea (Filemon Hollis) - Procedure Laparoscopic assisted vaginal hysterectomy, bilateral salphingectomies, c ystoscopy (Filemon Hollis) Vital Signs: Temp Pulse Resp BP Pulse Ox 36.4 C L 87 18 124/82 H 100 07/15/18 08:20 07/15/18 08:20 07/15/18 08:20 07/15/18 08:20 07/15/18 08:20 Height 5 ft 4 in Weight (kg) 59.6 kg Body Mass Index 23.1 Home Medications and Allergies Home Medications: Ambulatory Orders Ferrous Sulfate 325 mg PO DAILY 07/01/18 Ibuprofen [Motrin] 600 mg PO Q6H PRN 07/01/18 Multivitamin [Multiple Vitamins] 1 each PO DAILY 07/01/18 Ferrous Sulfate 325 mg PO DAILY 07/01/18 Ibuprofen [Motrin] 600 mg PO Q6H PRN 07/01/18 Multivitamin [Multiple Vitamins] 1 each PO DAILY 07/01/18 Allergies/Adverse Reactions: Allergies Allergy/AdvReac Type Severity Reaction Status Date / Time No Known Drug Allergies Allergy Verified 04/29/18 18:52 Anes History & Medical History - Anesthetic History Anesthesia Complications: reports: No previous complications - Medical History Cardiovascular: reports: Hypertension Pulmonary: reports: None Gastrointestinal: reports: None Urinary: reports: Frequency Neuro: reports: Headaches Musculoskeletal: reports: None Endocrine/Autoimmune: reports: None Skin: reports: None Smoking Status: Current every day smoker - Surgical History Gynecologic: Dilation and currettage, Tubal ligation, Other Exam General: Alert Dental: WNL Mouth Opening: Greater than 4 Fingerbreadths Mallampati classification: II Thyromental Distance: greater than 6 cm Respiratory: Lungs clear Cardiovascular: Regular rate Plan Anesthesia Type: General Consent for Procedure(s) Verified and Reviewed: Yes Code Status: Attempt Resuscitation ASA classification: 2-Mild systemic disease Is this case an emergency?: No
[2018-07-15] MEDS ORDERED: BUPIVACAINE 0.25%-EPI 1:200000 PF 30 ML VIAL ONE ×2 (09:47→11:42)
[2018-07-15] MEDS ORDERED: BUPIVACAINE 0.25%-EPI 1:200000 PF 30 ML VIAL SUBQ ONE ×3 (10:10→11:50)
[2018-07-15] MEDS ORDERED: ONDANSETRON 4 MG/2 ML VIAL IVP ONE (11:29)
[2018-07-15] MEDS ORDERED: KETOROLAC 30 MG/ML VIAL IVP ONE (11:29)
[2018-07-15] MEDS ORDERED: ROCURONIUM 50 MG/5 ML VIAL IVP ONE (11:29)
[2018-07-15] MEDS ORDERED: fentaNYL 250 MCG/5 ML VIAL IVP ONE (11:29)
[2018-07-15] MEDS ORDERED: ACETAMINOPHEN 1,000 MG/100 ML 100 ML IV ONE (11:29)
[2018-07-15] MEDS ORDERED: MIDAZOLAM 2 MG/2 ML VIAL IVP ONE (11:29)
[2018-07-15] MEDS ORDERED: PROPOFOL 200 MG/20 ML VIAL IVP ONE (11:29)
[2018-07-15] MEDS ORDERED: DEXAMETHASONE 4 MG/ML VIAL IVP ONE (11:29)
[2018-07-15] MEDS ORDERED: METHYLENE BLUE 0.5% 50 MG/10 ML AMPULE ONE (11:38)
[2018-07-15] MEDS ORDERED: LORazepam 2 MG/ML VIAL IVP PRN (12:44)
[2018-07-15] MEDS ORDERED: HYDROmorphone 0.5 MG/0.5 ML SYRINGE IVP PRN (12:44)
[2018-07-15] MEDS ORDERED: ONDANSETRON 4 MG/2 ML VIAL IVP PRN (12:44)
--- NOTE | 2018-07-15 12:49 | OPERATIVE REPORT ---
Operative Report - General Procedure Date: 07/15/18 Planned Procedure: LAVH with BS and Cysto Pre-Op Diagnosis: Menorrhagia, dysmenorrhea Procedure Performed: LAVH with BS and cysto Post Op Diagnosis: Same - Procedure Note Primary Surgeon: Kian Morel MD Secondary Surgeon: Kindra Presley MD Anesthesia Provider: Rizwan Bolden CRNA Anesthesia Technique: General ET tube Pathology: Uterus tubes IV Fluids (mL): 1,500 Estimated Blood Loss (mL): 100 Urine Output (mL): 200 Findings: 10 Cm uterus with large fundal fibroid. Complications: none - Other Other Information/Narrative: #[id number]
[2018-07-15] MEDS ORDERED: SODIUM CHLORIDE FLUSH 0.9% 10 ML SYRINGE IVP PRN (13:55)
[2018-07-15] MEDS: ACETAMINOPHEN 500 MG TABLET PO SCH ×2 (14:12→20:25)
[2018-07-15] MEDS: oxyCODONE 5 MG TABLET PO PRN ×2 (14:12→17:50)
--- NOTE | 2018-07-15 15:02 | OPERATIVE REPORT ---
DATE OF SERVICE: 07/15/2018 Physician: Kian Morel MD PREOPERATIVE DIAGNOSES 1. Menorrhagia. 2. Dysmenorrhea. POSTOPERATIVE DIAGNOSES 1. Menorrhagia. 2. Dysmenorrhea. 3. Fibroid uterus. SURGEON: Kian Morel MD LLAMA FARMER: Kindra Presley MD ANESTHESIA: General via endotracheal tube with Paulina Kimi, USER EXPERIENCE ARCHITECT IV FLUIDS: 1500 mL. ESTIMATED BLOOD LOSS: 100 mL. URINE OUTPUT: 200 mL. FINDINGS: Upon entering the abdominal cavity, she had evidence of pelvic endometriosis on the left-hand side, particularly on the posterior leaf of the broad ligament; however, this was overlying the ureter on that side. The uterus was enlarged 10 cm to palpation as well as sounded to 10 cm at time of procedure. The tube showed evidence of previous tubal ligation. There were functional cysts on both ovaries. The cul-de-sac and anterior uterus showed no adhesions. DESCRIPTION OF PROCEDURE: Following adequate endotracheal anesthesia, patient was placed in dorsal lithotomy position in [facility]. She was prepped and draped in the usual fashion. A timeout was performed, at which time, the concerns were addressed. The issues of anemia and the need to minimize blood loss were discussed. At this point, the speculum was placed in the vagina. The cervix was visualized, grasped with a single-tooth tenaculum. The uterus was then sounded to 10 cm anterior, then progressively dilated up to 8 mm. A HUMI catheter was then placed without difficulty, balloon insufflated. At this point, the railroad signal operator's gloves were changed, and then a stab wound was made in the subumbilical area with a #11 blade. A 5 mm trocar and sheath were placed on the first pass into the abdominal cavity. Laparoscope showed no evidence of any injury at the site of insertion. Two additional ports were placed in both the left and right lower quadrants following local anesthesia with 0.25% Marcaine, skin incision with an 11 blade, and being placed under direct visualization. The pelvis was inspected and noted to be within normal limits. The appendix was also noted to be normal. At this point, the left fallopian tube was grasped, and utilizing a LigaSure, this was cauterized and transected. This was brought all the way to the area of where she previously had a tubal ligation. This tube was then brought out through the incision. Then, grasping the utero-ovarian ligament, this was doubly cauterized and transected. The round ligament was then doubly cauterized and transected. Then, the broad ligament on the left-hand side was cauterized and transected. Then, the broad leaf was opened, and the anterior portion of the broad ligament was cauterized and transected utilizing the LigaSure. This was done across the lower uterine segment. This was then carried down all the way to the uterosacral ligament on the left-hand side. Care was taken to stay as close to the uterus as possible to minimize the risk of injury to the ureters. The contralateral side was treated in identical fashion. The tube was grasped closer to the uterus, and then the mesosalpinx was cauterized and transected. This was carried down to the utero-ovarian ligament, which was doubly cauterized and then transected. The round ligament was also doubly cauterized and transected. The anterior leaf of the broad ligament was then cauterized and transected utilizing the LigaSure. This was carried all the way down to the internal os of the cervix. Then, the anterior leaf of the broad ligament, which covered the lower uterine segment, was bluntly dissected free and then cauterized and transected with the LigaSure. The posterior leaf of the broad ligament was carried all the way down to the uterosacral ligaments. The uterine vessels were cauterized and transected with the LigaSure. Care was taken to ensure there was good hemostasis. Once this had been brought all the way down to the lower uterine segment, it was decided to go below. At this point, a short-weighted speculum was placed. Cervix grasped with thyroid Garrick clamps anteriorly and posteriorly, and then the cervix was circumscribed utilizing electrocautery. The bladder was bluntly and sharply dissected from the lower uterine segment. The posterior cul-de-sac was entered utilizing Nixon scissors, and then the uterosacral ligaments were clamped, transected, and then ligated with Мария stitches of 0 Vicryl. The bladder was then pushed up off the lower uterine segment, and then the peritoneum was entered. The transverse cervical ligaments on either side were grasped with Мария clamps, divided utilizing Nixon scissors, and ligated with Мария stitches of 0 Vicryl. On the left-hand side, this was carried in the abdominal cavity until the suture line from the LigaSure was reached. Then, utilizing the left- hand side, the uterosacral ligament was transected, ligated all the way up to the internal suture line from the laparoscopic half of the procedure. At this point, the uterus was attempted to be brought out, but because of its bulk, this was unsuccessful. The uterus was then bivalved. The fundal fibroid was grasped and then brought out through the vagina. The uterus followed easily. At this time, the edges of the vaginal mucosa were inspected for bleeding, none was noted. Then, the uterosacral ligaments were each injected with 10 mL of 0.25% Marcaine with epinephrine. A Hood suture was then placed starting at the posterior vagina on the left-hand side, including the transverse cervical ligaments on the left, traversing high across the cul-de-sac, including the transverse cervical ligaments on the right, and at the posterior vagina. These sutures were not tied, at this point. A pursestring of 3-0 Monocryl was placed, which included the anterior, posterior peritoneum. This was pulled snug and closed. The apex of the vagina was then closed utilizing [id number] of 0 Vicryl. Good hemostasis was observed. At this point, the Hood suture was then pulled snug and tight. This brought the transverse cervical ligaments together as well as brought the vagina high into the pelvic cavity. Cystoscopy was performed, and there was evidence of good ureteral flow from both ureteral orifices. The railroad signal operator's gloves were changed. The laparoscope was reintroduced, and there was evidence of good hemostasis in the pelvic cavity. The pelvis was irrigated with the music video director aspirator. No active bleeding was noted. Both trocar sites on the left and right side were brought out under direct visualization. Then, allowing as much CO2 as possible to escape through the subumbilical port, the trocar was then removed. The incisions were then closed using 4-0 Monocryl, and then Dermabond was applied. Patient tolerated the procedure well and was taken to recovery in stable condition. Sponge and needle counts were correct. TD: 07/15/2018 13:15 ELIOT
[2018-07-15 20:12] VITALS: BP 122/63
[2018-07-15] MEDS ORDERED: DOCUSATE SODIUM 100 MG CAPSULE PO SCH (21:00)
== END 2018-07-15 20:42 | disposition home or self-care (01) ==
LOC: SDS 08:17 → OBS 13:45 → SDS 13:45 → OBS 13:55 → SDS 20:42
PROVIDERS: ATTEND Obstetrics & Gynecology
PROC: 0UT7FZZ Resection of Bilateral Fallopian Tubes, Via Natural or Artificial Opening With Percutaneous Endoscopic Assistance (ICD-10-PCS; 2018-07-15)
PROC: 0UT9FZZ Resection of Uterus, Via Natural or Artificial Opening With Percutaneous Endoscopic Assistance (ICD-10-PCS; principal; 2018-07-15 09:15)
DX: N94.4 Primary dysmenorrhea (principal); N92.0 Excessive and frequent menstruation with regular cycle; D25.1 Intramural leiomyoma of uterus; N72 Inflammatory disease of cervix uteri; N83.292 Other ovarian cyst, left side; N83.291 Other ovarian cyst, right side; F17.210 Nicotine dependence, cigarettes, uncomplicated; I10 Essential (primary) hypertension
CPT/HCPCS: 58552; A9270; J0131; J0690; J3010; J7120

== ENCOUNTER 2018-12-22 21:10 | Emergency (ER) | payer MEDICAID ==
[2018-12-22 21:32] LABS: BASOPHILS % (AUTO) 0.7 %; HGB - HEMOGLOBIN 9.1 g/dL (12.0-16.0)
[2018-12-22 21:35] LABS: EOSINOPHILS % (AUTO) 2.1 %; LYMPHOCYTES % (AUTO) 37.1 %; MEAN CORPUSCULAR HEMOGLOBIN 17.3 pg (27.0-31.0); MEAN CORPUSCULAR HGB CONC 27.2 g/dL (32.0-36.0); MEAN CORPUSCULAR VOLUME 63.6 fL (81.0-99.0); MEAN PLATELET VOLUME 9.6 fL (7.9-10.8); MONOCYTES % (AUTO) 6.7 %; NEUTROPHILS % (AUTO) 52.9 %; PLT - PLATELET COUNT 343 10^3/uL (130-450); RED BLOOD COUNT 5.27 10^6/uL (4.20-5.40); RED CELL DISTRIBUTION WIDTH 20.5 % (12.0-15.0); WHITE BLOOD COUNT 10.9 x10^3/uL (4.8-10.8)
[2018-12-22 21:46] LABS: ALBUMIN 4.4 g/dL (3.2-5.5); ALBUMIN/GLOBULIN RATIO 1.3 (1.0-2.2); BILIRUBIN,TOTAL 0.7 mg/dL (0.2-1.0); CALCIUM 9.1 mg/dL (8.5-10.3); CREATININE 0.8 mg/dL (0.4-1.0); TOTAL PROTEIN 7.7 g/dL (6.7-8.2)
--- NOTE | 2018-12-22 22:56 | XRAY Report ---
Reason: epigastric pain with LUE pain Procedure Date: 12/22/2018 Accession Number: [id number] / [id number] Procedure: XR - Chest 2 View X-Ray CPT Code: 79402 FULL RESULT: EXAM: CHEST RADIOGRAPHY EXAM DATE: 12/22/2018 09:37 PM. CLINICAL HISTORY: Epigastric pain with left upper extremity pain. COMPARISON: CHEST 1 VIEW 04/29/2018 7:08 PM. TECHNIQUE: 2 views. FINDINGS: Lungs/Pleura: No focal opacities evident. No pleural effusion. No pneumothorax. Normal volumes. Mediastinum: Heart and mediastinal contours are unremarkable. Other: No subdiaphragmatic free air is seen. IMPRESSION: Stable negative 2-view chest radiography. RADIA
[2018-12-22] MEDS ORDERED: DICYCLOMINE 10 MG CAPSULE PO ONE (23:03)
[2018-12-22] MEDS ORDERED: LIDOCAINE VISCOUS 2% 15 ML UDC ONE (23:03)
[2018-12-22] MEDS ORDERED: MAG HYDROX/AL HYDROX/SIMETH 30 ML UDC ONE (23:03)
--- NOTE | 2018-12-22 23:10 | ED Physician Documentation ---
PD HPI ABD PAIN - Stated complaint Stated Complaint: ABD PX/ARM PX - Chief complaint Chief Complaint: Cardiac - History obtained from History obtained from: Patient - History of Present Illness Timing - onset: Today Timing - details: Abrupt onset Severity Comments: 'irritating' Quality: Dull, Other (burning) Location: Epigastric, Other (L upper arm) Associated symptoms: No: Fever, Nausea, Vomiting, Diarrhea, Hematuria, Chest pain, Dizzy, Near syncope / syncope Similar symptoms before: Has not had sx before Recently seen: Not recently seen - Additional information Additional information: This is a 37-year-old woman who was sitting on the couch with 1 of her pets when she suddenly got this pain in the inner aspect of her left upper arm that was shooting up into her neck and then she got pain in her epigastric area. She rates the pain as "irritating" and it started approximately 2 hours prior to presentation as a dull, burning and radiating "weird" pain. She did not take anything for it. She was actually seen here in March for similar type presentation and had to be admitted to the hospital and was transfused. She had a hysterectomy in June because they thought that was a source of her blood loss but she has not had her hemoglobin retested since then. She denies any feelings of heartburn. Denies shortness of breath she does occasionally get rapid heart rates but denies history of [place]. She does not take nonsteroidals. She has not felt nauseous or had any vomiting or diarrhea. Denies dizziness or dysuria. Denies history of DVT. Family history is positive for her mom with a " maker" heart attack and she is had grandparents, aunts, uncles and cousins of heart attacks. She is a skpj-oh-jany mom. Review of Systems Constitutional: denies: Fever Eyes: denies: Loss of vision Ears: denies: Loss of hearing Nose: denies: Rhinorrhea / runny nose Throat: denies: Sore throat Cardiac: denies: Chest pain / pressure, Palpitations Respiratory: denies: Dyspnea, Cough GI: reports: Abdominal Pain. 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 : Frequency HEENT: None Psych: None Musculoskeletal: None Derm: None - Past Surgical History Past Surgical History: Yes /COMMUNICATIONS INSTRUCTOR: Dilation and currettage, Tubal ligation, Other - Present Medications Home Medications: Ambulatory Orders Medication Instructions Recorded Confirmed Ferrous Sulfate 325 mg PO DAILY 07/01/18 07/15/18 Ibuprofen [Motrin] 600 mg PO Q6H PRN 07/01/18 07/15/18 Multivitamin [Multiple Vitamins] 1 each PO DAILY 07/01/18 07/15/18 - Allergies Allergies/Adverse Reactions: Allergies Allergy/AdvReac Type Severity Reaction Status Date / Time No Known Drug Allergies Allergy Verified 12/22/18 21:17 - Social History Does the pt smoke?: Yes Smoking Status: Current every day smoker Does the pt drink ETOH?: No Does the pt have substance abuse?: No - Immunizations Immunizations are current?: Yes - POLST Patient has POLST: No POLST Status: Full Code PD ED PE NORMAL - Vitals Vital signs reviewed: Yes - General General: Alert and oriented X 3, No acute distress, Well developed/nourished - HEENT HEENT: Atraumatic, PERRL, EOMI, Moist mucous membranes - Neck Neck: Supple, no meningeal sign, No adenopathy, Thyroid normal - Cardiac Cardiac: RRR, No murmur - Respiratory Respiratory: No respiratory distress, Clear bilaterally - Abdomen Abdomen: Normal bowel sounds, Soft, Non tender, Non distended, No organomegaly - Back Back: No CVA TTP - Derm Derm: Normal color, Warm and dry, No rash - Extremities Extremities: Other (Patient has pain with palpation along the inner aspect of the upper forearm. There is no rash or bruising noted.) - Neuro Neuro: Alert and oriented X 3, tester rocket engine 2-12 intact, No motor deficit, No sensory deficit, Normal speech - Psych Psych: Normal mood, Normal affect Results - Vitals Vitals: Vital Signs - 24 hr 12/22/18 21:12 Temperature 36.4 C L Heart Rate 103 H Respiratory 18 Rate Blood Pressure 145/90 H O2 Saturation 100 Oxygen O2 Source Room air - EKG (time done) 2122 Rate: Rate (enter#) Rhythm: NSR Intervals: Normal [place] Ischemia: Normal ST segments Compare to prior EKG: Old EKG unavailable - Labs Labs: Laboratory Tests 12/22/18 12/22/18 12/22/18 21:29 21:29 21:29 WBC 10.9 H RBC 5.27 Hgb 9.1 L Hct 33.5 L MCV 63.6 L MCH 17.3 L MCHC 27.2 L RDW 20.5 H Plt Count 343 MPV 9.6 Neut # (Auto) 5.8 Lymph # (Auto) 4.0 H [place] # (Auto) 0.7 Eos # (Auto) 0.2 Baso # (Auto) 0.1 Absolute Nucleated RBC 0.00 Band Neuts % (Manual) Not Reportable Abnorm Lymph % (Manual) Not Reportable Blast Cells % ELECTRIC MOTOR MECHANIC Nucleated RBC % 0.0 Neutrophils # (Manual) Not Reportable Lymphocytes # (Manual) Not Reportable Monocytes # (Manual) Not Reportable Eosinophils # (Manual) Not Reportable Basophils # (Manual) Not Reportable Differential Comment M Manual Slide Review Indicated Platelet Estimate NORMAL (130-450,000) RBC Morph Micro Appear 1+ TEARDROP CELLS Sodium 139 Potassium 3.4 L Chloride 105 Carbon Dioxide 24 Anion Gap 10.0 BUN 11 Creatinine 0.8 Estimated GFR (MDRD) 80 L Glucose 100 Calcium 9.1 Total Bilirubin 0.7 AST 17 ALT 11 Alkaline Phosphatase 22 L Troponin I High Sens < 2.3 L Total Protein 7.7 Albumin 4.4 Globulin 3.3 Albumin/Globulin Ratio 1.3 Lipase 41 Slides for Path Review Indicated - Rads (name of study) cxr Radiology: EMP read contemporaneously, See rad report PD MEDICAL DECISION MAKING - ED course Complexity details: reviewed results, re-evaluated patient, d/w patient, d/w family ED course: EKG looks normal. Her troponin was less than 2. CBC showed some mild anemia at 9.1 but there is some abnormal blood cells with anisocytosis That has prompted a pathology review. Abdominal panel labs are normal. Patient was given a GI cocktail and said that she felt a little better with the discomfort that she was having in her chest. We discussed her other labs I do not think there is a Heart etiology to her pain. She is still mildly anemic but does not require transfusion. She is given received Toradol IM and I have recommended that she follow back up with her primary care provider regarding the pathology review and the anemia area she states understanding. Departure - Departure Disposition: 01 Home, Self Care Clinical Impression: Atypical chest pain Condition: Good Instructions: ED Chest Pain Atypical Unkn Cause Follow-Up: Tara Cervantes ARNP [Primary Care Provider] - Comments: You need to make an appointment with your primary care provider to follow-up on the pathology review of your blood smear and the persistent anemia. Return to the emergency department if you have increasing pain in your chest especially if it is associated with shortness of breath, dizziness, vomiting or other problems arise.
[2018-12-22 23:17] LABS: PLATELET ESTIMATE, MANUAL NORMAL (130-450,000) (NORMAL)
[2018-12-22] MEDS ORDERED: KETOROLAC 60 MG/2 ML VIAL IM STA (23:39)
[2018-12-22 23:54] VITALS: BP 127/86
[2018-12-23 01:24] LABS: DIFFERENTIAL COMMENT MANUAL DIFFERENTIAL
[2018-12-23 01:26] LABS: BASOPHILS % (MANUAL) 0 %; EOSINOPHILS # (MANUAL) 0.2 10^3/uL (0-0.7); LYMPHOCYTES # (MANUAL) 2.4 10^3/uL (1.5-3.5); LYMPHOCYTES % (MANUAL) 22 %; MONOCYTES # (MANUAL) 0.5 10^3/uL (0.0-1.0)
== END 2018-12-23 00:11 | disposition home or self-care (01) ==
LOC: ED 21:10
DX: R07.89 Other chest pain (principal); D50.9 Iron deficiency anemia, unspecified; I10 Essential (primary) hypertension; Z82.49 Family history of ischemic heart disease and other diseases of the circulatory system; F17.200 Nicotine dependence, unspecified, uncomplicated
CPT/HCPCS: 36415; 71046; 80053; 83690; 84484; 85025; 93005; 96372; 99284; A9270

== ENCOUNTER 2019-01-21 18:22 | Emergency (ER) | payer MEDICAID ==
[2019-01-21 19:04] VITALS: BP 140/90
--- NOTE | 2019-01-21 19:04 | XRAY Report ---
Reason: CP Procedure Date: 01/21/2019 Accession Number: [id number] / [id number] Procedure: XR - Chest 1 View X-Ray CPT Code: 05500 FULL RESULT: EXAM: CHEST RADIOGRAPHY EXAM DATE: 01/21/2019 06:44 PM. CLINICAL HISTORY: CP. COMPARISON: CHEST 2 VIEW 12/22/2018 9:29 PM. TECHNIQUE: 1 view. FINDINGS: Lungs/Pleura: No focal opacities evident. No pleural effusion. No pneumothorax. Mediastinum: Within exam limitations, the cardiomediastinal contour is normal. Other: None. IMPRESSION: No acute cardiopulmonary findings radiographically. RADIA
--- NOTE | 2019-01-21 19:07 | ED Physician Documentation ---
PD HPI ABD PAIN - Stated complaint Stated Complaint: CP, LIGHTHEADED - Chief complaint Chief Complaint: Cardiac - History obtained from History obtained from: Patient - History of Present Illness Timing - onset: Other (38-year-old woman with chronic anemia, had hysterectomy earlier this year for fibroids for same. Month ago she developed chest pain was seen in the emergency department. Of note at that time her cardiac work-up was negative but she did have blast cells on a CBC smear. She has an appoint with an oncologist but not for a month. Since then she has had bone pain from the hips down. She is able to walk. She complains of substernal chest pain that is been coming and going ever since then and is a little worse today. She also has headaches. Fatigue and anxiety.) Review of Systems Ten Systems: 10 systems reviewed and negative Constitutional: reports: Fatigue. denies: Fever, Chills Cardiac: reports: Chest pain / pressure. 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: None : Frequency HEENT: None Psych: None Musculoskeletal: None Derm: None - Past Surgical History Past Surgical History: Yes /CHARGING OPERATOR: Dilation and currettage, Tubal ligation, Other - Present Medications Home Medications: Ambulatory Orders Medication Instructions Recorded Confirmed Ferrous Sulfate 325 mg PO DAILY 07/01/18 07/15/18 Ibuprofen [Motrin] 600 mg PO Q6H PRN 07/01/18 07/15/18 Multivitamin [Multiple Vitamins] 1 each PO DAILY 07/01/18 07/15/18 - Allergies Allergies/Adverse Reactions: Allergies Allergy/AdvReac Type Severity Reaction Status Date / Time No Known Drug Allergies Allergy Verified 01/21/19 18:32 - Social History Does the pt smoke?: Yes Smoking Status: Current every day smoker Does the pt drink ETOH?: No Does the pt have substance abuse?: No - Family History Family history: reports: Non contributory - Immunizations Immunizations are current?: Yes - POLST Patient has POLST: No POLST Status: Full Code PD ED PE NORMAL - Vitals Vital signs reviewed: Yes - General General: Alert and oriented X 3, No acute distress - HEENT HEENT: PERRL, EOMI - Neck Neck: Supple, no meningeal sign, No bony TTP - Cardiac Cardiac: RRR, No murmur - Respiratory Respiratory: No respiratory distress, Clear bilaterally - Abdomen Abdomen: Normal bowel sounds, Soft, Non tender - Back Back: No CVA TTP, No spinal TTP - Derm Derm: No rash - Extremities Extremities: No deformity, No tenderness to palpate, No edema, No calf tenderness / cord - Neuro Neuro: Alert and oriented X 3, Normal speech Results - Vitals Vitals: Vital Signs - 24 hr 01/21/19 01/21/19 18:30 19:00 Temperature 36.7 C Heart Rate 92 83 Respiratory 15 15 Rate Blood Pressure 143/98 H 140/90 H O2 Saturation 100 100 Oxygen O2 Source Room air - EKG (time done) 1830 Rate: Rate (enter#) (88) Rhythm: NSR [place]: Normal Intervals: Normal IN QRS: Normal Ischemia: Non specific changes (lateral ST depression, see EKG notes for comp). No: ST elevation c/w ischemia Computer interpretation: Agree with computer - Labs Labs: Laboratory Tests 01/21/19 01/21/19 01/21/19 18:55 18:55 18:55 WBC 9.1 RBC 5.77 H Hgb 9.7 L Hct 36.5 L MCV 63.3 L MCH 16.8 L MCHC 26.6 L RDW 21.6 H Plt Count 366 MPV 9.8 Neut # (Auto) 4.7 Lymph # (Auto) 3.7 H [place] # (Auto) 0.4 Eos # (Auto) 0.2 Baso # (Auto) 0.1 Absolute Nucleated RBC 0.00 Band Neuts % (Manual) Not Reportable Abnorm Lymph % (Manual) Not Reportable Nucleated RBC % 0.0 Neutrophils # (Manual) Not Reportable Lymphocytes # (Manual) Not Reportable Monocytes # (Manual) Not Reportable Eosinophils # (Manual) Not Reportable Basophils # (Manual) Not Reportable Differential Comment MANUAL=AUTO DIFF Manual Slide Review Indicated Platelet Estimate NORMAL (130-450,000) Platelet Morphology NORMAL APPEARANCE RBC Morph Micro Appear 2+ ANISOCYTOSIS D-Dimer Sodium 139 Potassium 3.4 L Chloride 105 Carbon Dioxide 24 Anion Gap 10.0 BUN 8 Creatinine 0.8 Estimated GFR (MDRD) 80 L Glucose 95 Calcium 9.5 Total Bilirubin 0.6 AST 18 ALT 11 Alkaline Phosphatase 19 L Troponin I High Sens < 2.3 L Total Protein 8.2 Albumin 4.8 Globulin 3.4 Albumin/Globulin Ratio 1.4 Lipase 39 01/21/19 18:55 WBC RBC Hgb Hct MCV MCH MCHC RDW Plt Count MPV Neut # (Auto) Lymph # (Auto) [place] # (Auto) Eos # (Auto) Baso # (Auto) Absolute Nucleated RBC Band Neuts % (Manual) Abnorm Lymph % (Manual) Nucleated RBC % Neutrophils # (Manual) Lymphocytes # (Manual) Monocytes # (Manual) Eosinophils # (Manual) Basophils # (Manual) Differential Comment Manual Slide Review Platelet Estimate Platelet Morphology RBC Morph Micro Appear D-Dimer < 200.0 L Sodium Potassium Chloride Carbon Dioxide Anion Gap BUN Creatinine Estimated GFR (MDRD) Glucose Calcium Total Bilirubin AST ALT Alkaline Phosphatase Troponin I High Sens Total Protein Albumin Globulin Albumin/Globulin Ratio Lipase PD MEDICAL DECISION MAKING - ED course ED course: 38-year-old woman with some chronic anemia and ongoing chest symptoms. She had a scare last month because on her last ER visit she had blasts in her smear. Subsequently the pathology did not show any blasts. However I think she is been having a lot of ongoing anxiety related to this and it was rechecked tonight. I also asked the negative cutter to pay special attention to this and there were no blasts tonight. I advised her that she should still follow-up with the hematology outcomes specialist but it is not as urgent as it was. Departure - Departure Disposition: 01 Home, Self Care Clinical Impression: Symptomatic anemia, Atypical chest pain Condition: Good Record reviewed to determine appropriate education?: Yes Instructions: ED Chest Pain Atypical Unkn Cause Comments: Tonight there are no blasts on your blood work. This is very reassuring that you do not have something like leukemia. I would advise follow-up with the oncologist as scheduled, but the delay in light of richie's results I think is okay.
[2019-01-21 19:09] LABS: BASOPHILS # (AUTO) 0.1 10^3/uL (0.0-0.1); BASOPHILS % (AUTO) 0.9 %; EOSINOPHILS # (AUTO) 0.2 10^3/uL (0.0-0.7); EOSINOPHILS % (AUTO) 1.9 %; HGB - HEMOGLOBIN 9.7 g/dL (12.0-16.0); LYMPHOCYTES # (AUTO) 3.7 10^3/uL (1.5-3.5); LYMPHOCYTES % (AUTO) 40.5 %; MEAN CORPUSCULAR HEMOGLOBIN 16.8 pg (27.0-31.0); MEAN CORPUSCULAR HGB CONC 26.6 g/dL (32.0-36.0); MEAN CORPUSCULAR VOLUME 63.3 fL (81.0-99.0); MEAN PLATELET VOLUME 9.8 fL (7.9-10.8); MONOCYTES # (AUTO) 0.4 10^3/uL (0.0-1.0); MONOCYTES % (AUTO) 4.7 %; NEUTROPHILS # (AUTO) 4.7 10^3/uL (1.5-6.6); NEUTROPHILS % (AUTO) 51.6 %; PLT - PLATELET COUNT 366 10^3/uL (130-450); RED BLOOD COUNT 5.77 10^6/uL (4.20-5.40); RED CELL DISTRIBUTION WIDTH 21.6 % (12.0-15.0); WHITE BLOOD COUNT 9.1 x10^3/uL (4.8-10.8)
[2019-01-21 19:20] LABS: ALBUMIN 4.8 g/dL (3.2-5.5); ALBUMIN/GLOBULIN RATIO 1.4 (1.0-2.2); BILIRUBIN,TOTAL 0.6 mg/dL (0.2-1.0); CALCIUM 9.5 mg/dL (8.5-10.3); CREATININE 0.8 mg/dL (0.4-1.0); TOTAL PROTEIN 8.2 g/dL (6.7-8.2)
[2019-01-21 19:36] LABS: PLATELET ESTIMATE, MANUAL NORMAL (130-450,000) (NORMAL); PLATELET MORPHOLOGY NORMAL APPEARANCE (NORMAL)
[2019-01-21 20:06] LABS: DIFFERENTIAL COMMENT MANUAL=AUTO DIFF
== END 2019-01-21 20:31 | disposition home or self-care (01) ==
LOC: ED 18:22
DX: R07.89 Other chest pain (principal); D53.9 Nutritional anemia, unspecified; I10 Essential (primary) hypertension; F17.200 Nicotine dependence, unspecified, uncomplicated
CPT/HCPCS: 36415; 71045; 80053; 83690; 84484; 85025; 85379; 93005; 99284

== ENCOUNTER 2019-05-27 08:14 | Emergency (ER) | payer MEDICAID ==
[2019-05-27 08:46] LABS: BASOPHILS # (AUTO) 0.1 10^3/uL (0.0-0.1); BASOPHILS % (AUTO) 0.9 %; EOSINOPHILS # (AUTO) 0.2 10^3/uL (0.0-0.7); HGB - HEMOGLOBIN 13.7 g/dL (12.0-16.0); LYMPHOCYTES % (AUTO) 37.4 %; MEAN CORPUSCULAR HEMOGLOBIN 23.8 pg (27.0-31.0); MEAN CORPUSCULAR HGB CONC 29.8 g/dL (32.0-36.0); MEAN CORPUSCULAR VOLUME 79.9 fL (81.0-99.0); MONOCYTES # (AUTO) 0.8 10^3/uL (0.0-1.0); MONOCYTES % (AUTO) 7.5 %; NEUTROPHILS # (AUTO) 5.5 10^3/uL (1.5-6.6); NEUTROPHILS % (AUTO) 51.8 %; PLT - PLATELET COUNT 276 10^3/uL (130-450); RED BLOOD COUNT 5.76 10^6/uL (4.20-5.40); WHITE BLOOD COUNT 10.6 x10^3/uL (4.8-10.8)
[2019-05-27 08:58] LABS: ALBUMIN 4.2 g/dL (3.2-5.5); ALBUMIN/GLOBULIN RATIO 1.4 (1.0-2.2); BILIRUBIN,TOTAL 0.6 mg/dL (0.2-1.0); CALCIUM 9.1 mg/dL (8.5-10.3); CREATININE 0.9 mg/dL (0.4-1.0); TOTAL PROTEIN 7.1 g/dL (6.7-8.2)
[2019-05-27 09:01] LABS: RBC MORPHOLOGY (MULTIPLE) 4+ ANISOCYTOSIS (NORMAL)
[2019-05-27] MEDS ORDERED: KETOROLAC 30 MG/ML VIAL IVP STA (09:16)
[2019-05-27] MEDS ORDERED: LORazepam 2 MG/ML VIAL IVP STA (09:16)
--- NOTE | 2019-05-27 09:19 | ED Physician Documentation ---
History of Present Illness - Stated complaint Stated Complaint: CHEST PAIN - Chief complaint Chief Complaint: Cardiac - History obtained from History obtained from: Patient - History of Present Illness Timing: Prior to arrival - Additonal information Additional information: Patient comes emergency department complaining of right chest pain that started this morning. Patient states she got up and went into the bathroom when she suddenly felt a sharp pain in her right upper chest, which radiated to her right scapula. She also felt radiation into her shoulder. Patient states that made her double over and catch her breath, but when she tried to breathe deeply, the pain seemed to be worse. Patient denies any fevers or chills. No cough. No recent illness. No abdominal pain. No nausea or vomiting. Patient has no history of DVT, PE, or gallbladder issues. No family history of any of these either. Patient states that she has been worked up with Dr. Ruelas of cardiology for previous episodes of left-sided chest pain, and has had a stress echo which is found to be unremarkable. She is also currently wearing an event monitor for previous palpitations. Patient is not having any palpitations at this time. Patient does note that she has been having right lower extremity pain for the last several months. She sees a pan shover for some sort of blood disorder, which she states initially was thought to be blast cell production but that they have ruled this out. She states that she has mentioned the lower extremity pain to her doctor but they have just put her on gabapentin. She states she is never been worked up with ultrasound. Patient denies any other complaints at this time. She states she is otherwise fairly Review of Systems Ten Systems: 10 systems reviewed and negative Constitutional: reports: Reviewed and negative Eyes: reports: Reviewed and negative Ears: reports: Reviewed and negative Nose: reports: Reviewed and negative Throat: reports: Reviewed and negative Cardiac: reports: Chest pain / pressure Respiratory: reports: Reviewed and negative GI: reports: Reviewed and negative : reports: Reviewed and negative Skin: reports: Reviewed and negative Musculoskeletal: reports: Reviewed and negative Neurologic: reports: Reviewed and negative Psychiatric: reports: Reviewed and negative Endocrine: reports: Reviewed and negative Immunocompromised: reports: Reviewed and negative PD PAST MEDICAL HISTORY - Past Medical History Cardiovascular: Hypertension Respiratory: None Neuro: Headaches Endocrine/Autoimmune: None GI: None MACHINE 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: None : Frequency HEENT: None Psych: None Musculoskeletal: None Derm: None - Past Surgical History Past Surgical History: Yes /MACHINE ICER: Dilation and currettage, Tubal ligation, Other - Present Medications Home Medications: Ambulatory Orders Medication Instructions Recorded Confirmed Ferrous Sulfate 325 mg PO BID 07/01/18 04/07/19 Multivitamin [Multiple Vitamins] 1 each PO DAILY 07/01/18 04/07/19 Gabapentin [Neurontin] 300 mg PO HS 30 Days #90 capsule 02/24/19 04/07/19 - Allergies Allergies/Adverse Reactions: Allergies Allergy/AdvReac Type Severity Reaction Status Date / Time No Known Drug Allergies Allergy Verified 04/07/19 13:48 - Social History Does the pt smoke?: Yes Smoking Status: Current every day smoker Does the pt drink ETOH?: No Does the pt have substance abuse?: No - Immunizations Immunizations are current?: Yes - POLST Patient has POLST: No POLST Status: Full Code PD ED PE NORMAL - Vitals Vital signs reviewed: Yes - General General: Alert and oriented X 3, No acute distress, Other (Patient appears slightly anxious.) - HEENT HEENT: PERRL - Neck Neck: Supple, no meningeal sign - Cardiac Cardiac: RRR, No murmur, Other (No reproducible chest pain.) - Respiratory Respiratory: No respiratory distress, Clear bilaterally - Abdomen Abdomen: Soft, Non tender, Non distended - Derm Derm: Warm and dry - Extremities Extremities: No deformity, Other (Patient has mild swelling and tenderness of her right calf, compared to the left.) - Neuro Neuro: Alert and oriented X 3 - Psych Psych: Normal mood, Normal affect Results - Vitals Vitals: Vital Signs - 24 hr 05/27/19 05/27/19 05/27/19 08:23 10:04 11:14 Heart Rate 70 65 62 Respiratory 24 15 18 Rate Blood Pressure 130/80 118/66 112/69 O2 Saturation 93 100 98 Oxygen O2 Source Room air - Labs Labs: Laboratory Tests 05/27/19 05/27/19 05/27/19 08:35 08:35 08:35 WBC 10.6 RBC 5.76 H Hgb 13.7 Hct 46.0 MCV 79.9 L MCH 23.8 L MCHC 29.8 L Plt Count 276 Neut # (Auto) 5.5 Lymph # (Auto) 4.0 H [place] # (Auto) 0.8 Eos # (Auto) 0.2 Baso # (Auto) 0.1 Absolute Nucleated RBC 0.00 Nucleated RBC % 0.0 Manual Slide Review Indicated RBC Morph Micro Appear 4+ ANISOCYTOSIS Sodium 140 Potassium 4.1 Chloride 105 Carbon Dioxide 25 Anion Gap 10.0 BUN 9 Creatinine 0.9 Estimated GFR (MDRD) 70 L Glucose 156 H Calcium 9.1 Total Bilirubin 0.6 AST 22 ALT 17 Alkaline Phosphatase 19 L Troponin I High Sens < 2.3 L Total Protein 7.1 Albumin 4.2 Globulin 2.9 Albumin/Globulin Ratio 1.4 Lipase 32 - Rads (name of study) us R leg Radiology: Prelim report reviewed, Final report received, Discussed with rads, See rad report (Final impression: No evidence for deep venous thrombosis; superficial thrombus within tortuous greater saphenous vein near junction with common femoral vein) cxr Radiology: Final report received, EMP read indepedently (Final impression: Hypoventilatory changes noted; no acute pulmonary process.) PD MEDICAL DECISION MAKING - ED course Complexity details: reviewed old records, reviewed results, re-evaluated patient, considered differential, d/w patient ED course: Patient was worked up with labs, EKG, chest x-ray, and ultrasound of the right lower extremity.Toradol and a small dose of Ativan.Work-up was found to be unremarkable initially with the preliminary report on the ultrasound report and is negative for DVT. The patient is doing better and I felt she was stable for discharge home. However, after the patient was discharged the radiologist did call a couple of hours later and stated that although the patient did not have a DVT she did have a superficial superficial clot that was nearing the deep venous circulation and that this was a concern for potential extension into the deep circulation. As such, I did have nursing staff contact the patient and advised her that we would be prescribing Xarelto for her. She has been advised that while she does not have a DVT now, she is at risk of extension of her superficial clot into the deep venous circulation, which needs to be prevented. Patient has stated that she will go and pick out hand the medication and get started on it. We have advised her to follow-up with her primary care physician to monitor the progress of her clot. Departure - Departure Disposition: 01 Home, Self Care Clinical Impression: Chest wall pain Condition: Good Instructions: ED Chest Pain Costochondritis Comments: Your labs, chest x-ray, EKG, and ultrasound all look good. There is no evidence of a blood clot, heart attack, pneumonia, or any other emergent condition causing your chest pain. There is also no evidence of obstructing gallstones on your liver labs. Most likely, given the pain with taking deep breaths and the radiation through to your shoulder blade, you are experiencing musculoskeletal pain. This generally will resolve on its own. You have been given medication in the emergency department to help with this.Please follow-up with your primary care physician if the symptoms continue for more than the next several days. Discharge Date/Time: 05/27/19 11:34
--- NOTE | 2019-05-27 10:41 | XRAY Report ---
Reason: rt chest pain, rt arm pain, shortness of breath Procedure Date: 05/27/2019 Accession Number: [id number] / [id number] Procedure: XR - Chest 1 View X-Ray CPT Code: 39843 Final Report FULL RESULT: EXAM: CHEST RADIOGRAPHY EXAM DATE: 05/27/2019 09:26 AM. CLINICAL HISTORY: Rt chest pain, rt arm pain, shortness of breath. COMPARISON: CHEST 1 VIEW 01/21/2019 6:29 PM CHEST 2 VIEW 12/22/2018 9:29 PM. TECHNIQUE: 1 view. FINDINGS: Lungs/Pleura: Patchy densities are present at the bases. No effusions or pneumothorax. Mediastinum: Within exam limitations, the cardiomediastinal contour is normal. Other: None. IMPRESSION: 1. Hypoventilatory changes noted. 2. No acute pulmonary process. RADIA
[2019-05-27 11:15] VITALS: BP 112/69
--- NOTE | 2019-05-27 11:48 | Ultrasound Report ---
Reason: RLE swelling/pain Procedure Date: 05/27/2019 Accession Number: [id number] / [id number] Procedure: US - Duplex Ext Veins Right CPT Code: Addended Final Report FULL RESULT: EXAM: RIGHT LOWER EXTREMITY VENOUS ULTRASOUND EXAM DATE: 05/27/2019 11:04 AM. CLINICAL HISTORY: RLE swelling/pain. COMPARISON: None. TECHNIQUE: Real-time sonographic vascular imaging was performed by the grease refiner operator through the lower extremity utilizing both color-flow and Doppler spectral analysis. Multiple small business representative static images were saved for review. FINDINGS: Common Femoral Vein (CFV): Normal. CFV-GSV Junction: Normal. Profunda Femoral Vein (PFV): Normal. Femoral Vein (FV) Prox: Normal. Femoral Vein (FV) Mid: Normal. Femoral Vein (FV) Dist: Normal. Popliteal Vein: Normal. Posterior Tibial Veins: Normal. Peroneal Veins: Normal. Contralateral Side CFV: Normal. Other: Tortuous greater saphenous vein with slow flow. Nonocclusive thrombus in greater saphenous vein near junction with common femoral vein. IMPRESSION: 1. No evidence for deep venous thrombosis. 2. Superficial thrombus within tortuous greater saphenous vein, near junction with common femoral vein. RADIA The call report notification system was initiated by Dr. Gary Ernst at 11:45 AM on 05/27/2019. ADDENDUM: 05/27/19 11:50 The above call report findings were discussed with Yumiko Moreau by Dr. Gary Ernst at 11:50 AM on 05/27/2019.
== END 2019-05-27 11:34 | disposition home or self-care (01) ==
LOC: ED 08:14
DX: I82.811 Embolism and thrombosis of superficial veins of right lower extremity (principal); R07.89 Other chest pain; I10 Essential (primary) hypertension; F17.200 Nicotine dependence, unspecified, uncomplicated
CPT/HCPCS: 36415; 71045; 80053; 83690; 84484; 85025; 93005; 93971; 96374; 99284; J2060

== ENCOUNTER 2019-05-28 20:44 | Inpatient (IN) | payer MEDICAID ==
[2019-05-28 21:12] LABS: BASOPHILS # (AUTO) 0.1 10^3/uL (0.0-0.1); BASOPHILS % (AUTO) 0.8 %; EOSINOPHILS # (AUTO) 0.2 10^3/uL (0.0-0.7); EOSINOPHILS % (AUTO) 1.4 %; HGB - HEMOGLOBIN 13.5 g/dL (12.0-16.0); LYMPHOCYTES # (AUTO) 3.6 10^3/uL (1.5-3.5); LYMPHOCYTES % (AUTO) 33.5 %; MEAN CORPUSCULAR HEMOGLOBIN 24.1 pg (27.0-31.0); MEAN CORPUSCULAR HGB CONC 30.1 g/dL (32.0-36.0); MONOCYTES # (AUTO) 0.7 10^3/uL (0.0-1.0); MONOCYTES % (AUTO) 6.9 %; NEUTROPHILS # (AUTO) 6.1 10^3/uL (1.5-6.6); PLT - PLATELET COUNT 224 10^3/uL (130-450); WHITE BLOOD COUNT 10.7 x10^3/uL (4.8-10.8)
[2019-05-28 21:21] LABS: ALBUMIN 4.6 g/dL (3.2-5.5); ALBUMIN/GLOBULIN RATIO 1.5 (1.0-2.2); BILIRUBIN,TOTAL 0.4 mg/dL (0.2-1.0); CALCIUM 9.2 mg/dL (8.5-10.3); CREATININE 0.9 mg/dL (0.4-1.0); TOTAL PROTEIN 7.6 g/dL (6.7-8.2)
[2019-05-28] MEDS ORDERED: ETOMIDATE 40 MG/20 ML VIAL IVP STA (21:27)
[2019-05-28] MEDS ORDERED: LIDOCAINE 2%-EPI 1:100000 20 ML MDV SUBQ STA (21:27)
[2019-05-28 21:33] LABS: PLATELET ESTIMATE, MANUAL NORMAL (130-450,000) (NORMAL); PLATELET MORPHOLOGY NORMAL APPEARANCE (NORMAL)
[2019-05-28] MEDS ORDERED: fentaNYL 100 MCG/2 ML VIAL ONE (21:45)
[2019-05-28] MEDS ORDERED: fentaNYL 100 MCG/2 ML VIAL IVP STA (21:45)
--- NOTE | 2019-05-28 21:49 | ED Physician Documentation ---
PD HPI CHEST PAIN - Stated complaint Stated Complaint: CP/CAN'T BREATHE - Chief complaint Chief Complaint: Cardiac - History obtained from History obtained from: Patient - History of Present Illness Timing - onset: Yesterday (This is a 38-year-old woman with history of tobacco use, blast cell issue, anemia, and chronic chest pain. She was seen yesterday for new right-sided chest pain different from prior. Her x-ray was negative. There is a superficial venous clot. She was started on an anticoagulant which she had 1 dose yesterday, none today. The right-sided chest pain is much worse today and associated with shortness of breath. She is never had anything like this chest pain before.) Review of Systems Ten Systems: 10 systems reviewed and negative Constitutional: denies: Fever, Chills Cardiac: reports: Chest pain / pressure, Pedal edema, Calf pain. denies: Palpitations Respiratory: reports: Dyspnea. denies: Cough PD PAST MEDICAL HISTORY - Past Medical History Cardiovascular: Hypertension Respiratory: None Neuro: Headaches Endocrine/Autoimmune: None GI: None NUT SIFTER: None : Frequency HEENT: None Psych: None Musculoskeletal: None Derm: None - Past Surgical History Past Surgical History: Yes /NUT SIFTER: Dilation and currettage, Tubal ligation, Other - Present Medications Home Medications: Ambulatory Orders Medication Instructions Recorded Confirmed Ferrous Sulfate 325 mg PO BID 07/01/18 04/07/19 Multivitamin [Multiple Vitamins] 1 each PO DAILY 07/01/18 04/07/19 Gabapentin [Neurontin] 300 mg PO HS 30 Days #90 capsule 02/24/19 04/07/19 - Allergies Allergies/Adverse Reactions: Allergies Allergy/AdvReac Type Severity Reaction Status Date / Time No Known Drug Allergies Allergy Verified 04/07/19 13:48 - Social History Does the pt smoke?: Yes Smoking Status: Current every day smoker Does the pt drink ETOH?: No Does the pt have substance abuse?: No - Immunizations Immunizations are current?: Yes - POLST Patient has POLST: No POLST Status: Full Code PD ED PE NORMAL - Vitals Vital signs reviewed: Yes - General General: Alert and oriented X 3, Other (She appears uncomfortable, laying on her left side, hyperventilating) - HEENT HEENT: PERRL, EOMI - Neck Neck: Supple, no meningeal sign, No bony TTP - Cardiac Cardiac: RRR, No murmur - Respiratory Respiratory: Other (Absent right-sided breath sounds and tachypneic) - Abdomen Abdomen: Soft, Non tender - Back Back: No CVA TTP, No spinal TTP - Derm Derm: Normal color, Warm and dry - Extremities Extremities: No edema, No calf tenderness / cord - Neuro Neuro: Alert and oriented X 3, Normal speech - Psych Psych: Normal mood, Normal affect Results - Vitals Vitals: Vital Signs - 24 hr 05/28/19 05/28/19 05/28/19 20:45 21:35 21:40 Temperature 36.4 C L Heart Rate 100 92 100 Respiratory 20 30 H 34 H Rate Blood Pressure 139/93 H 131/79 H 131/78 H O2 Saturation 96 92 100 05/28/19 05/28/19 21:45 21:50 Temperature Heart Rate 87 89 Respiratory 27 H 36 H Rate Blood Pressure 139/93 H 125/110 H O2 Saturation 95 93 Oxygen O2 Source Nasal cannula - EKG (time done) 2056 Rate: Rate (enter#) (100) Rhythm: Sinus tachycardia, CHAN [place]: Normal Intervals: Normal NV QRS: Normal Ischemia: Normal ST segments Computer interpretation: Agree with computer - Labs Labs: Laboratory Tests 05/28/19 05/28/19 05/28/19 20:58 20:58 20:58 WBC 10.7 RBC 5.60 H Hgb 13.5 Hct 44.8 MCV 80.0 L MCH 24.1 L MCHC 30.1 L Plt Count 224 Neut # (Auto) 6.1 Lymph # (Auto) 3.6 H O'Brien # (Auto) 0.7 Eos # (Auto) 0.2 Baso # (Auto) 0.1 Absolute Nucleated RBC 0.00 Nucleated RBC % 0.0 Manual Slide Review Indicated WBC Morphology NORMAL APPEARANCE Platelet Estimate NORMAL (130-450,000) Platelet Morphology NORMAL APPEARANCE RBC Morph Micro Appear 2+ HYPOCHROMASIA Sodium 138 Potassium 4.0 Chloride 103 Carbon Dioxide 27 Anion Gap 8.0 BUN 9 Creatinine 0.9 Estimated GFR (MDRD) 70 L Glucose 120 H Calcium 9.2 Total Bilirubin 0.4 AST 24 ALT 20 Alkaline Phosphatase 22 L Troponin I High Sens 2.9 Total Protein 7.6 Albumin 4.6 Globulin 3.0 Albumin/Globulin Ratio 1.5 Lipase 37 - Rads (name of study) 1v chest (#1) Radiology: EMP read contemporaneously (Tension right-sided pneumothorax; (Noting she does not have tension physiology)) 1v CXR (#2, post thoracostomy) Radiology: EMP read contemporaneously (Almost complete resolution of right-sided pneumothorax with right chest tube in place.) Procedures - Chest Tube (location) right other other Chest tube preparation: Consent obtained (written), Sterile prep and drape Chest tube location: Right, Other (mid clavicular line) Chest tube anesthesia: Lidocaine (8ml lido with epi) Chest tube return: Air, Blood (scant) Chest tube after care: Confirmed with xray, Pt tolerated well - Procedural sedation Sedation prep: Informed consent, Time out completed, AHA 2 - mild disease Sedation medications: etomidate (10mg ivp) Patient status during sedation: Responds to tactile, Vitals remained stable, Maintained airway, Recovered uneventfully Sedation recovery: Recovered uneventfully Time in sedation (Minutes): 10 PD MEDICAL DECISION MAKING - ED course ED course: This is a 38-year-old woman who presents with right-sided chest pain, negative work-up yesterday except for superficial venous thrombosis for which she was started on anticoagulants. On my examination now she has a large right-sided pneumothorax. She was consented for chest tube placement after discussion with the on-call surgeon who is okay with the Thora vent placement, Dr. Orellana. She will consult for chest tube management. Patient was very anxious and she was sedated with some etomidate prior to the procedure. There was minimal bloody drainage from the tube and she otherwise tolerated this well but had a lot of pain and coughing afterwards. Stat chest x-ray was ordered for chest tube placement. Looks pretty good on the repeat chest x-ray, she did require a fair amount of pain medication with the chest tube in. Spoke with Dr. Greer for admission at 10 PM. - Critical Care Time(min): 40 Time Includes: Direct patient care, Review records, Reassess patient, Document care, Coordinate care, Medical consult, Family consult for tx dec, See progress note Data interpretation: Labs, Pulse ox Procedures included in critical care time: Peripheral IV Procedures excluded from critical care time: Chest tube, EKG Departure - Departure Disposition: [facility] DC/Xfer Clinical Impression: Spontaneous pneumothorax Condition: Serious Discharge Date/Time: 05/28/19 23:25
[2019-05-28] MEDS ORDERED: HYDROmorphone 1 MG/ML SYRINGE IVP STA ×3 (21:50→23:11)
[2019-05-28] MEDS ORDERED: HYDROmorphone 1 MG/ML CARPUJECT ONE (21:52)
--- NOTE | 2019-05-28 21:56 | XRAY Report ---
Reason: Chest pain Procedure Date: 05/28/2019 Accession Number: [id number] / [id number] Procedure: XR - Chest 1 View X-Ray CPT Code: 84917 Addended Final Report FULL RESULT: EXAM: CHEST RADIOGRAPHY EXAM DATE: 05/28/2019 09:17 PM. CLINICAL HISTORY: Chest pain. COMPARISON: CHEST 1 VIEW 05/27/2019 9:06 AM. TECHNIQUE: 1 view. FINDINGS: Lungs/Pleura: Large tension pneumothorax on the right with collapse of the right lung. No focal opacities evident. No pleural effusion. No left pneumothorax. Mediastinum: Within exam limitations, the cardiomediastinal contour is normal. Other: None. IMPRESSION: Right tension pneumothorax. RADIA The critical result notification system was initiated by Dr. Gary Lorenzo at 09:54 PM on 05/28/2019. ADDENDUM: 05/28/19 22:02 The above critical result findings were discussed with Dr. Bermudez by Dr. Gary Lorenzo at 10:02 PM on 05/28/2019.
--- NOTE | 2019-05-28 22:10 | HISTORY & PHYSICAL EXAMINATION ---
Chief Complaint - Chief Complaint Chief Complaint: right-sided chest pain History of Present Illness - Admitted From Admitted From:: [facility] - History Obtained From Records Reviewed: yes History obtained from: ED physician and patient - History of Present Illness HPI Comment/Other: Patient is a 38 y/o female with Hx of hypertension and iron deficiency anemia. She sees Dr Russo at the [facility] for her anemia and recently had an iron infusion 4 weeks ago. She presented to the ED with complain of right-sided chest pain. She had history of left-sided chest pain which has been worked up in the past. However this right-sided pain was new. Chest xray done yesterday was negative. She was found to have a right lower extremity superficial venous thrombosis. It was explained by radiology as nearing the deep venous circulation and that there was concern for potential extension into the deep circulation. As a result she was started on xarelto. Her last dose was this morning. She presented to the ED today because the chest pain persisted. CXR done showed a complete collapse of the right lung, consistent with a pneumothorax. She had a thoravent chest tube placed in the ED and she was presented for admission. At bedside the patient is nauseous and vomiting. She appears pale and is in a significant amount of pain. She complains of pain between her shoulder blades. She required 4L of oxygen to maintain an O2Sat at 96%. Dr Lam with general surgery was contacted and is agreeable to see the patient for chest tube management. History - Past Medical History Cardiovascular: reports: Hypertension Respiratory: reports: None Neuro: reports: Headaches Endocrine/Autoimmune: reports: None GI: reports: None WILDLIFE REFUGE SPECIALIST: reports: None : reports: Frequency HEENT: reports: None Psych: reports: None Musculoskeletal: reports: None Derm: reports: None MRSA Hx?: No - Past Surgical History /WILDLIFE REFUGE SPECIALIST: reports: Dilation and currettage, Tubal ligation, Other - Family & Social History Family History Comment/Other: Mother: [place], breast cancer (bilateral mastectomy and hysterectomy0. Father: Grave's Disease, Hypertension. Brother 1: 2/2 MVA. Brother 2: Multiple chronic illness. children: asthma - Substance History Use: Uses substance without health or social issues: NONE, Tobacco - POLST Patient has POLST: No POLST Status: Full Code Meds/Allgy - Home Medications Home Medications: Ambulatory Orders Medication Instructions Recorded Confirmed Ferrous Sulfate 325 mg PO BID 07/01/18 04/07/19 Multivitamin [Multiple Vitamins] 1 each PO DAILY 07/01/18 04/07/19 Gabapentin [Neurontin] 300 mg PO HS 30 Days #90 capsule 02/24/19 04/07/19 - Allergies Allergies/Adverse Reactions: Allergies Allergy/AdvReac Type Severity Reaction Status Date / Time No Known Drug Allergies Allergy Verified 04/07/19 13:48 Review of Systems - Constitutional Constitutional: denies: Fatigue, Fever, Chills - Eyes Eyes: denies: Pain, Vision loss - Ears, Nose & Throat Ears, Nose & Throat: denies: Vertigo, Sore throat - Cardiovascular Cariovascular: reports: Chest pain (right sided). denies: Irregular heart rate, Palpitations, Lightheadedness, Syncope - Respiratory Respiratory: reports: Pleuritic pain. denies: Cough, Sputum production, Wheezing, SOB at rest, SOB with exertion - Gastrointestinal Gastrointestinal: reports: Nausea, Vomiting. denies: Abdominal pain, Abdominal distention, Constipation, Diarrhea, Coffee grounds emesis, Reflux/heartburn - Genitourinary Genitourinary: denies: Dysuria, Frequency, Urgency, Hematuria - Musculoskeletal Musculoskeletal: denies: Muscle pain, Back pain, Muscle aches - Integumentary Integumentary: denies: Rash, Pruritis, Lesions - Neurological Neurological: denies: General weakness, Focal weakness, Headache, Dizziness - Psychiatric Psychiatric: denies: Depression, Anxiety - Hematologic/Lymphatic Hematologic/Lymphatic: reports: Anemia Prior Level of Functionality: Patient is independent of activities of daily living Exam - Vital Signs Vital Signs: Vital Signs x48h Temp Pulse Resp BP Pulse Ox 05/28/19 21:40 100 34 H 05/28/19 21:35 92 30 H 131/79 H 92 05/28/19 20:45 36.4 C L 100 20 139/93 H 96 - Physical Exam General Appearance: positive: Alert, Moderate distress Eyes Bilateral: positive: Normal inspection, PERRL, EOMI ENT: positive: No signs of dehydration Neck: positive: No JVD, Trachea midline Respiratory: positive: No respiratory distress, Breath sounds nml. negative: Wheezes, Rales, Rhonchi Cardiovascular: positive: Regular rate & rhythm. negative: Irregularly irregular Abdomen: positive: Non-tender, No organomegaly, Nml bowel sounds, No distention, Guarding, Rebound Back: positive: Nml inspection Skin: positive: Color nml, No rash, Warm, Dry Extremities: positive: Full ROM, Nml appearance, No pedal edema, Calf tenderness Neurologic/Psychiatric: positive: Oriented x3, Mood/affect nml Conclusion/Plan - Problem List (1) Spontaneous pneumothorax Conclusion/Plan: Right sided Risk factor: Active smoker Thoravent chest tube in place and connected to atrium with suction. Near complete re-expansion of lung. General surgery (Dr Lam) consulted for chest tube management Pain an nausea management prn. (2) Chest pain Conclusion/Plan: Right sided. Likely 2/2 spontaneous pneumothorax Chest tube in place with near complete re-expansion of right lung CT Angio chest to evaluate for possible pulmonary embolism (3) Iron deficiency anemia Conclusion/Plan: Continue iron sulfate supplements (4) Acute superficial venous thrombosis of right lower extremity Conclusion/Plan: Due to potential for progression into deep circulation, patient was started on xarelto. Last dose was this morning. Will hold xarelto for now in light of bleeding around chest tube placement. Will resume when appropriate to do so. - Lab Results Fish Bones: 05/28/19 20:58 05/28/19 20:58 Core Measures - Anticipated LOS I expect patient to be DC'd or transferred within 96 hours.: Yes - DVT/VTE - Prophylaxis VTE/DVT Device ordered at admit?: Yes
--- NOTE | 2019-05-28 22:17 | XRAY Report ---
Reason: post chest tube Procedure Date: 05/28/2019 Accession Number: [id number] / [id number] Procedure: XR - Chest 1 View X-Ray CPT Code: 48731 Final Report FULL RESULT: EXAM: CHEST RADIOGRAPHY EXAM DATE: 05/28/2019 10:04 PM. CLINICAL HISTORY: Post chest tube. COMPARISON: CHEST 1 VIEW 05/28/2019 8:58 PM. TECHNIQUE: 1 view. FINDINGS: Lungs/Pleura: Right chest tube placed, with suggestion of persistent small lateral pneumothorax. No focal opacities evident. No pleural effusion. Mediastinum: Within exam limitations, the cardiomediastinal contour is normal. Other: None. IMPRESSION: Suspect small residual lateral pneumothorax post right chest tube placement. RADIA
[2019-05-28] MEDS ORDERED: MORPHINE 2 MG/ML CARPUJECT IVP STA (22:39)
[2019-05-28] MEDS ORDERED: IOVERSOL 320 100 ML VIAL IVP ONE ×2 (23:07→23:45)
[2019-05-28] MEDS ORDERED: ONDANSETRON 4 MG/2 ML VIAL IVP STA (23:11)
[2019-05-29] MEDS: MORPHINE 2 MG/ML CARPUJECT IVP PRN ×4 (00:08→07:34)
[2019-05-29] MEDS ORDERED: PROMETHAZINE 25 MG/1 ML VIAL ONE (00:10)
[2019-05-29] MEDS ORDERED: SODIUM CHLORIDE 0.9% 500 ML ONE (00:17)
[2019-05-29] MEDS: PROMETHAZINE INJ 25 MG in SODIUM CHLORIDE 0.9% 50 ML IV PRN ×2 (00:26→06:02)
[2019-05-29] MEDS: SODIUM CHLORIDE FLUSH 0.9% 10 ML SYRINGE IVP SCH ×4 (00:27→21:35)
--- NOTE | 2019-05-29 00:47 | CT Report ---
Reason: dyspnea, chest pain. ? PE Procedure Date: 05/28/2019 Accession Number: [id number] / [id number] Procedure: CT - ANGIO CHEST W/WO CPT Code: Final Report FULL RESULT: EXAM: CT ANGIOGRAM CHEST EXAM DATE: 05/28/2019 11:40 PM. CLINICAL HISTORY: Dyspnea, chest pain. ? PE. COMPARISON: CHEST 1 VIEW 05/28/2019 9:39 PM CHEST 1 VIEW 05/27/2019 9:06 AM CHEST 1 VIEW 05/28/2019 8:58 PM. TECHNIQUE: Routine helical imaging was performed through the chest in the pulmonary arterial phase. IV Contrast: OPTIRAY 320. Reconstructions: Coronal 3-D MIP reconstructions. Sagittal and coronal. In accordance with CT protocol optimization, one or more of the following dose reduction techniques were utilized for this exam: automated exposure control, adjustment of mA and/or KV based on patient size, or use of iterative reconstructive technique. FINDINGS: Pulmonary Arteries: Diagnostic quality: Adequate through the segmental arteries. No evidence for acute or chronic pulmonary emboli. RV/LV is within normal limits. There is no interventricular septal bowing. There is no reflux of contrast material in the IVC. Lungs/Pleura: Frontal approach chest tube entering the pleural space between the anterior right second and third ribs and terminating along the lateral aspect of the right upper lobe. There is reexpansion edema of the right lung with interlobular septal thickening and diffuse groundglass opacities which accentuate the emphysematous changes in the right upper lobe. Paraseptal blebs in the bilateral upper lobes. Minimal residual pneumothorax along the anterior and medial aspect of the right upper lobe. Large right-sided pleural effusion associated with extensive compressive atelectasis in the right lower lobe. Mediastinum: Normal. No cardiac enlargement or adenopathy. Thoracic Aorta: Unremarkable. Upper Abdomen: Unremarkable. Other: None. IMPRESSION: 1. No evidence of pulmonary embolism. 2. Frontal approach chest tube entering the pleural space between the anterior right second and third ribs and terminating along the lateral aspect of the right upper lobe. 3. Minimal residual pneumothorax along the anterior and medial aspect of the right upper lobe. 4. Reexpansion edema involving the right lung with interlobular septal thickening and diffuse groundglass opacities which accentuate the emphysematous changes in the right upper lobe. 5. Centrilobular emphysematous changes in the left lung apex. Paraseptal emphysematous changes and blebs in the bilateral lung apices. 6. Large right-sided pleural effusion associated with extensive compressive atelectasis in the right lower lobe. RADIA
[2019-05-29] MEDS: ONDANSETRON 4 MG/2 ML VIAL IVP PRN ×2 (05:18→19:51)
[2019-05-29] MEDS: SODIUM CHLORIDE FLUSH 0.9% 10 ML SYRINGE IVP PRN ×3 (05:18→19:51)
[2019-05-29] MEDS ORDERED: SODIUM CHLORIDE 0.9% 500 ML IV PRN (06:02)
[2019-05-29 06:17] LABS: BASOPHILS % (AUTO) 0.4 %; EOSINOPHILS % (AUTO) 0.3 %; HGB - HEMOGLOBIN 10.2 g/dL (12.0-16.0); LYMPHOCYTES % (AUTO) 6.4 %; MEAN CORPUSCULAR HEMOGLOBIN 24.3 pg (27.0-31.0); MEAN CORPUSCULAR HGB CONC 29.7 g/dL (32.0-36.0); MEAN CORPUSCULAR VOLUME 81.9 fL (81.0-99.0); MEAN PLATELET VOLUME 10.6 fL (7.9-10.8); MONOCYTES % (AUTO) 6.1 %; NEUTROPHILS % (AUTO) 85.8 %; PLT - PLATELET COUNT 188 10^3/uL (130-450); WHITE BLOOD COUNT 24.9 x10^3/uL (4.8-10.8)
[2019-05-29 06:19] LABS: ABNORMAL LYMPHS % (MANUAL) 0 %
[2019-05-29 06:29] LABS: CALCIUM 8.4 mg/dL (8.5-10.3); CREATININE 0.8 mg/dL (0.4-1.0)
[2019-05-29 06:58] LABS: BAND NEUTROPHILS % (MANUAL) 3 %; DIFFERENTIAL COMMENT MANUAL DIFFERENTIAL; LYMPHOCYTES % (MANUAL) 4 %; MONOCYTES # (MANUAL) 0.5 10^3/uL (0.0-1.0); PLATELET ESTIMATE, MANUAL NORMAL (130-450,000) (NORMAL); PLATELET MORPHOLOGY NORMAL APPEARANCE (NORMAL)
[2019-05-29] MEDS ORDERED: SODIUM CHLORIDE 0.9% 500 ML IV ONE ×2 (09:15→11:31)
--- NOTE | 2019-05-29 09:28 | XRAY Report ---
Reason: dyspnea, chest pain, assess pleural effusion Procedure Date: 05/29/2019 Accession Number: [id number] / [id number] Procedure: XR - Chest 1 View X-Ray CPT Code: 03788 Final Report FULL RESULT: EXAM: CHEST RADIOGRAPHY EXAM DATE: 05/29/2019 07:35 AM. CLINICAL HISTORY: Dyspnea, chest pain, assess pleural effusion. COMPARISON: CHEST ANGIO 05/28/2019 11:28 PM CHEST 1 VIEW 05/28/2019 9:39 PM. TECHNIQUE: 1 view. FINDINGS: Lungs/Pleura: Loculated right pleural fluid in the apex. Possible small apical pneumothorax. Right lower lobe infiltrate/atelectasis with dependent right effusion. Mild left basilar atelectasis. Mediastinum: Within exam limitations, the cardiomediastinal contour is normal. Other: Right-sided chest tube tip in the apex. IMPRESSION: 1. Loculated right pleural fluid in the apex. 2. Possible small apical pneumothorax. 3. Right lower lobe infiltrate/atelectasis with dependent right effusion RADIA
[2019-05-29] MEDS ORDERED: SODIUM CHLORIDE FLUSH 0.9% 10 ML SYRINGE IVP PRN (09:33)
[2019-05-29 09:53] LABS: ABG BASE EXCESS -1.8 mmol/L (-2.0-3.0); ABG HCO3 22.8 mmol/L (22.0-26.0); ABG OXYGEN SATURATION 91 % (94-98); ABG PCO2 38 mmHg (34-45); ABG PH 7.39 (7.35-7.45); ABG PO2 61 mmHg (80-100); ALLEN TEST POSITIVE
[2019-05-29] MEDS: D5NS W/20 MEQ KCL 1,000 ML IV SCH ×2 (09:58→18:31)
--- NOTE | 2019-05-29 10:37 | ANESTHESIA ---
Pre-Anesthesia VS, & Labs - Diagnosis hemothorax s/p chest tube for pneumothorax - Procedure chest tube placement Vital Signs: Temp Pulse Resp BP Pulse Ox 36.4 C L 117 H 28 H 105/61 4 L 05/29/19 08:43 05/29/19 10:01 05/29/19 10:01 05/29/19 10:01 05/29/19 10:01 Height 5 ft 3 in Weight (kg) 59.5 kg Body Mass Index 23.2 - NPO >8 hours - Is Patient ?: No (tubal) - Lab Results Current Lab Results: Laboratory Tests 05/29/19 09:44: Bld Gas Analysis Time 0944, Sample Site RIGHT RADIAL, ABG pH 7.39, ABG pCO2 38, ABG pO2 61 L, ABG HCO3 22.8, ABG Total CO2 24.0, ABG O2 Sa turation 91 L, ABG Oximetry Spot Check 96, ABG Base Excess -1.8, Mike Test POSITIVE, Respiration Rate 32, O2 Delivery Device NASAL CANNULA, O2 Liters/Min 2.00 05/29/19 05:45: Sodium 138, Potassium 4.3, Chloride 105, Carbon Dioxide 26, Anion Gap 7.0, BUN 9, Creatinine 0.8, Estimated GFR (MDRD) 80 L, Glucose 136 H, Calcium 8.4 L 05/29/19 05:45: WBC 24.9 H, RBC 4.20, Hgb 10.2 L, Hct 34.4 L, MCV 81.9, MCH 24.3 L, MCHC 29.7 L, RDW TNP, Plt Count 188, MPV 10.6, Neut # (Auto) Not Reportable, Lymph # (Auto) Not Reportable, [place] # (Auto) Not Reportable, Eos # (Auto) Not Reportable, Baso # (Auto) Not Reportable, Absolute Nucleated RBC Not Reportable, Total Counted 100, Band Neuts % (Manual) 3, Abnorm Lymph % (Manual) 0, Nucleated RBC % Not Reportable, Neutrophils # (Manual) 23.4 H, Lymphocytes # (Manual) 1.0 L, Monocytes # (Manual) 0.5, Eosinophils # (Manual) 0.0, Basophils # (Manual) 0.0, Differential Comment MANUAL DIFFERENTIAL, WBC Morphology NORMAL APPEARANCE, Platelet Estimate NORMAL (130-450,000), Platelet Morphology NORMAL APPEARANCE, RBC Morph Micro Appear DIMORPHIC RBCS 05/28/19 20:58: Troponin I High Sens 2.9 05/28/19 20:58: Sodium 138, Potassium 4.0, Chloride 103, Carbon Dioxide 27, Anion Gap 8.0, BUN 9, Creatinine 0.9, Estimated GFR (MDRD) 70 L, Glucose 120 H, Calcium 9.2, Total Bilirubin 0.4, AST 24, ALT 20, Alkaline Phosphatase 22 L, Total Protein 7.6, Albumin 4.6, Globulin 3.0, Albumin/Globulin Ratio 1.5, Lipase 37 05/28/19 20:58: WBC 10.7, RBC 5.60 H, Hgb 13.5, Hct 44.8, MCV 80.0 L, MCH 24.1 L , MCHC 30.1 L, Plt Count 224, Neut # (Auto) 6.1, Lymph # (Auto) 3.6 H, [place] # (Auto) 0.7, Eos # (Auto) 0.2, Baso # (Auto) 0.1, Absolute Nucleated RBC 0.00, Nucleated RBC % 0.0, Manual Slide Review Indicated, WBC Morphology NORMAL APPEARANCE, Platelet Estimate NORMAL (130-450,000), Platelet Morphology NORMAL APPEARANCE, RBC Morph Micro Appear 2+ HYPOCHROMASIA Lab results reviewed: Yes Fish Bones: 05/29/19 05:45 05/29/19 05:45 Home Medications and Allergies Active Medications Hydrocodone Bitart/Acetaminophen ([place] 5/325) 1 tab PO Q4HR PRN PRN Reason: Pain 5 to 7 Hydromorphone HCl (Dilaudid Inj Syringe) 0.5 mg IVP Q2H PRN PRN Reason: Pain 8 to 10 Promethazine HCl 25 mg/ Sodium (Chloride) 51 mls @ 100 mls/hr IV Q6H PRN PRN Reason: Nausea / Vomiting Last Infusion: 05/29/19 07:09 Dose: Infused Sodium Chloride (Normal Saline 0.9%) 500 mls @ 0 mls/hr IV Q24H PRN PRN Reason: TKO RATE Last Admin: 05/29/19 08:12 Dose: 30 mls/hr Potassium Chloride/Dextrose/Sod Cl () 1,000 mls @ 125 mls/hr IV .Q8H MARIA ISABEL Last Admin: 05/29/19 09:58 Dose: 125 mls/hr Ondansetron HCl (Zofran Inj) 4 mg IVP Q4HR PRN PRN Reason: Nausea / Vomiting Last Admin: 05/29/19 05:18 Dose: 4 mg Sodium Chloride (Normal Saline Flush 0.9%) 10 ml IVP PRN PRN PRN Reason: NEEDED PER PROVIDER ORDERS Last Admin: 05/29/19 07:35 Dose: 10 ml Sodium Chloride (Normal Saline Flush 0.9%) 10 ml IVP 0100,0900,1700 MARIA ISABEL Last Admin: 05/29/19 03:00 Dose: 10 ml Ferrous Sulfate 325 mg PO DAILY 07/01/18 Multivitamin [Multiple Vitamins] 1 each PO DAILY 07/01/18 Allergies/Adverse Reactions: Allergies Allergy/AdvReac Type Severity Reaction Status Date / Time No Known Drug Allergies Allergy Verified 04/07/19 13:48 Anes History & Medical History - Anesthetic History Anesthesia Complications: reports: No previous complications Family history of Anesthesia Complications: Denies Family history of Malignant Hyperthermia: Denies - Medical History Cardiovascular: reports: Hypertension Pulmonary: reports: None Gastrointestinal: reports: None Urinary: reports: Frequency Neuro: reports: Headaches Musculoskeletal: reports: None Endocrine/Autoimmune: reports: None Blood Disorders: reports: Anemia Skin: reports: None Smoking Status: Current every day smoker Other Past Medical History: Hx of Blood & Iron Transfusions. - Surgical History Gynecologic: Dilation and currettage, Tubal ligation, Other Exam General: Alert, Cooperative, Mild distress Dental: WNL Mouth Openin Fingerbreadth Neck Mobility: Normal Mallampati classification: II Thyromental Distance: 4-6 cm Respiratory: Lungs clear, Absent breath sounds (at right) Cardiovascular: Regular rate (tachy) Neurological: Normal speech Mental/Cognitive Status: Alert/Oriented X3 Cognitive Status: Within normal limits Plan Anesthesia Type: MAC Consent for Procedure(s) Verified and Reviewed: Yes Code Status: Attempt Resuscitation ASA classification: 2-Mild systemic disease Is this case an emergency?: Yes
[2019-05-29] MEDS ORDERED: PROPOFOL 200 MG/20 ML VIAL IVP ONE (10:38)
[2019-05-29] MEDS ORDERED: PHENYLEPHRINE 10 MG/ML VIAL IV ONE (10:38)
[2019-05-29] MEDS ORDERED: MIDAZOLAM 2 MG/2 ML VIAL IVP ONE (10:38)
[2019-05-29] MEDS ORDERED: KETAMINE 500 MG/10 ML VIAL IVP ONE (10:38)
[2019-05-29] MEDS ORDERED: LIDOCAINE 2%-EPI 1:100000 20 ML MDV MC ONE (11:00)
--- NOTE | 2019-05-29 11:58 | CONSULTATION NOTE ---
Referring Provider Name of Referring Provider:: ED Dr. Hinson Chief Complaint - Chief Complaint Chief Complaint: chest tube placement for pneumothorax History of Present Illness - Admitted From Admitted From:: ED - History Obtained From History obtained from: patient and chart - History of Present Illness HPI Comment/Other: 38yo F admitted last night with a completely collapsed right lung from apparent spontaneous PNX. She has numerous small blebs on CT. A small diameter thoravent tube was placed in the ED last night. Blood started to drain from the tube overnight and imaging shows hemothorax settling along and constricting her right lower lobe and edema from re-expansion throughout. Lung is largely re- expanded. She started to get hypotensive this AM and she continues to drain dark blood. Of note, pt was recently started on xarelto for a SVT which is likely the contributor to her bleed after instrumentation from her procedure. She has not had this since yesterday AM. History - Past Medical History Cardiovascular: reports: Hypertension Respiratory: reports: None Neuro: reports: Headaches Endocrine/Autoimmune: reports: None GI: reports: None TRIMMING OPERATOR: reports: None : reports: Frequency HEENT: reports: None Psych: reports: None Musculoskeletal: reports: None Derm: reports: None MRSA Hx?: No Other Past Medical History: Hx of Blood & Iron Transfusions. - Past Surgical History /TRIMMING OPERATOR: reports: Dilation and currettage, Tubal ligation, Other - Family & Social History Family History Comment/Other: Mother: [place], breast cancer (bilateral mastectomy and hysterectomy0. Father: Grave's Disease, Hypertension. Brother 1: 2/2 MVA. Brother 2: Multiple chronic illness. children: asthma - Substance History Use: Uses substance without health or social issues: NONE, Tobacco - POLST Patient has POLST: No POLST Status: Full Code Meds/Allgy - Home Medications Home Medications: Ambulatory Orders Medication Instructions Recorded Confirmed Ferrous Sulfate 325 mg PO DAILY 07/01/18 05/29/19 Multivitamin [Multiple Vitamins] 1 each PO DAILY 07/01/18 05/29/19 Gabapentin [Neurontin] 300 mg PO HS 30 Days #90 capsule 02/24/19 04/07/19 - Allergies Allergies/Adverse Reactions: Allergies Allergy/AdvReac Type Severity Reaction Status Date / Time No Known Drug Allergies Allergy Verified 04/07/19 13:48 Review of Systems - Respiratory Respiratory: reports: SOB at rest - All Other Systems All Other Systems: reports: Reviewed and negative Exam - Vital Signs Vital Signs: Vital Signs x48h Temp Pulse Resp BP BP Pulse Ox 05/29/19 11:15 98 25 H 89/58 L 95 05/29/19 11:10 115 H 32 H 101/65 93 05/29/19 11:05 113 H 29 H 90/54 L 95 05/29/19 11:00 117 H 25 H 95/60 95 05/29/19 10:45 119 H 20 99/64 95 05/29/19 10:43 117 H 25 H 103/64 94 05/29/19 10:01 117 H 28 H 105/61 4 L 05/29/19 09:30 109 H 84/51 L 98 05/29/19 09:20 112 H 86/51 L 99 05/29/19 09:15 108 H 85/48 L 97 05/29/19 09:10 109 H 84/51 L 95 05/29/19 09:08 107 H 82/49 L 94 05/29/19 08:43 36.4 C L 86 20 94/56 L 94 05/29/19 05:32 81 24 112/53 L 96 - Physical Exam Comments/Other: AAO, NAD, female of healthy weight; appears older than stated age EOMI, MMM, no scleral icterus unlabored 2LNC; pt states it hurts to take a deep breath soft, nt/nd MAEW Conclusion and Plan - Lab Results Laboratory Results 05/29/19 09:44: Bld Gas Analysis Time 0944, Sample Site RIGHT RADIAL, ABG pH 7.39, ABG pCO2 38, ABG pO2 61 L, ABG HCO3 22.8, ABG Total CO2 24.0, ABG O2 Saturation 91 L, ABG Oximetry Spot Check 96, ABG Base Excess -1.8, Mike Test POSITIVE, Respiration Rate 32, O2 Delivery Device NASAL CANNULA, O2 Liters/Min 2.00 05/29/19 05:45: Sodium 138, Potassium 4.3, Chloride 105, Carbon Dioxide 26, Anion Gap 7.0, BUN 9, Creatinine 0.8, Estimated GFR (MDRD) 80 L, Glucose 136 H, Calcium 8.4 L 05/29/19 05:45: WBC 24.9 H, RBC 4.20, Hgb 10.2 L, Hct 34.4 L, MCV 81.9, MCH 24.3 L, MCHC 29.7 L, RDW TNP, Plt Count 188, MPV 10.6, Neut # (Auto) Not Reportable, Lymph # (Auto) Not Reportable, [place] # (Auto) Not Reportable, Eos # (Auto) Not Reportable, Baso # (Auto) Not Reportable, Absolute Nucleated RBC Not Reportable, Total Counted 100, Band Neuts % (Manual) 3, Abnorm Lymph % (Manual) 0, N ucleated RBC % Not Reportable, Neutrophils # (Manual) 23.4 H, Lymphocytes # (Manual) 1.0 L, Monocytes # (Manual) 0.5, Eosinophils # (Manual) 0.0, Basophils # (Manual) 0.0, Differential Comment MANUAL DIFFERENTIAL, WBC Morphology NORMAL APPEARANCE, Platelet Estimate NORMAL (130-450,000), Platelet Morphology NORMAL APPEARANCE, RBC Morph Micro Appear DIMORPHIC RBCS 05/28/19 20:58: Troponin I High Sens 2.9 05/28/19 20:58: Sodium 138, Potassium 4.0, Chloride 103, Carbon Dioxide 27, Anion Gap 8.0, BUN 9, Creatinine 0.9, Estimated GFR (MDRD) 70 L, Glucose 120 H, Calcium 9.2, Total Bilirubin 0.4, AST 24, ALT 20, Alkaline Phosphatase 22 L, Total Protein 7.6, Albumin 4.6, Globulin 3.0, Albumin/Globulin Ratio 1.5, Lipase 37 05/28/19 20:58: WBC 10.7, RBC 5.60 H, Hgb 13.5, Hct 44.8, MCV 80.0 L, MCH 24.1 L, MCHC 30.1 L, Plt Count 224, Neut # (Auto) 6.1, Lymph # (Auto) 3.6 H, [place] # (Auto) 0.7, Eos # (Auto) 0.2, Baso # (Auto) 0.1, Absolute Nucleated RBC 0.00, Nucleated RBC % 0.0, Manual Slide Review Indicated, WBC Morphology NORMAL APPEARANCE, Platelet Estimate NORMAL (130-450,000), Platelet Morphology NORMAL APPEARANCE, RBC Morph Micro Appear 2+ HYPOCHROMASIA - Diagnostic Imaging Results Diagnostic Imaging Results: positive: Final report reviewed, Read contemporaneously - Diagnosis Diagnosis: Right pneumothorax now hemothorax - Plan Plan: R PNX: entirely collapsed lung on presentation to ED last night --> spontaneous PNX, has blebs on CT, is a smoker --> first episode - has now become a hemothorax likely due to her chest tube placement in setting of anticoagulation --> blood dark but needs tube exchange for larger diameter and lower placement for settling fluid constraining RLL --> tube exchanged at bedside under anesthesia-assisted sedation as per patient's wishes --> nearly 800cc of dark blood drained, consistent with volume on CT and not bright so will monitor for now as her vitals are improving --> FU CXR shows less fluid but small volume PNX - spoke with medicine team, would reconsider anticoagulation for her as her indication was soft
--- NOTE | 2019-05-29 12:06 | XRAY Report ---
Reason: chest tube placed Procedure Date: 05/29/2019 Accession Number: [id number] / [id number] Procedure: XR - Chest for Line Placement CPT Code: Final Report FULL RESULT: EXAM: CHEST RADIOGRAPHY EXAM DATE: 05/29/2019 11:38 AM. CLINICAL HISTORY: Chest tube placed. COMPARISON: CHEST 1 VIEW 05/29/2019 7:19 AM CHEST ANGIO 05/28/2019 11:28 PM. TECHNIQUE: 1 view. FINDINGS: Lungs/Pleura: Right pleural effusion lower lung and in the apex. Increased parenchymal markings right lung. Small bubbles of air along the medial right lung may be bullous changes versus small pneumothorax. Right side chest tube medial right lung. Mediastinum: Within exam limitations, the cardiomediastinal contour is normal. Other: None. IMPRESSION: 1. Right pleural effusion along the right lower lung, lateral chest and apex. 2. Possible pneumothorax versus bullous changes along the right apical pleural fluid. 3. Right-sided chest tube in the right medial lung RADIA
[2019-05-29 12:14] LABS: MUDS CUTOFF CONCENTRATIONS CUTOFF CONC BELOW:
--- NOTE | 2019-05-29 12:20 | POST OP PROGRESS NOTE ---
Subjective - General Admit Date: 05/28/19 Procedure Date: 07/15/18 Post Op Days: 318 Procedure Performed: right chest tube thoracostomy - Review of Systems Drain Type: right chest tube (32 Fr) Drain Output Description: dark blood Approximate mls Output: 800cc initially All Other Systems: positive: Reviewed and negative - Other Other Information/Narrative: Indications as well as risks, benefits, and alternatives reviewed with patient and informed consent signed. She insists upon sedation so anesthesia is present to assist. A timeout is performed with the team present. She is positioned supine with right arm extended above her shoulder. The right chest wall is prepped and draped. Two percent lidocaine with epinephrine is injected in the skin over the chosen intercostal space in the mid-axillary line. A rib block is also performed. Incision is made with a 15 blade scalpel and carried down with scissors and blunt dissection to the chest wall. Scissors are used to carefully enter the chest cavity above the rib. Blunt spreading is performed and copious dark blood exits the thoracic space. Digital exploration is performed with no lung encountered. The chest tube is introduced and carefully advanced with no resistance. It is placed at 14cm at the skin and sutured in place. Dark blood continues to drain from around the chest tube but is also present in the clamped tube; warmed air is also apparent in the line consistent with intrathoracic placement. The tube is sutured into place and attached to the [facility] which is at -20mmHg suction. Initial air leak with breaths presents but quickly resolved. Dark blood to 700cc drained into cannister while placing occlusive dressing and obtaining immediate CXR. Tube was fairly deep in this small lady so was pulled back a few cm and re-sutured with a new CXR taken. Pt tolerated the procedure well and BP and HR were improving from prior as she was coming out of sedation.
[2019-05-29 12:25] LABS: AMPHETAMINE SCREEN,URINE NEGATIVE (NEGATIVE); BENZODIAZEPINES SCREEN, URINE POSITIVE (NEGATIVE); METHADONE SCREEN, URINE NEGATIVE (NEGATIVE); METHAMPHETAMINES SCREEN, URINE NEGATIVE (NEGATIVE); OPIATE SCREEN, URINE POSITIVE (NEGATIVE); OXYCODONE SCREEN, URINE NEGATIVE (NEGATIVE); PROPOXYPHENE SCREEN, URINE NEGATIVE (NEGATIVE); TRICYCLIC ANTIDEPRESSANT,URINE NEGATIVE (NEGATIVE)
[2019-05-29 12:28] LABS: COCAINE SCREEN URINE NEGATIVE (NEGATIVE)
--- NOTE | 2019-05-29 12:35 | PROVIDER PROGRESS NOTE ---
Assessment/Plan - Problem List (1) Hemorrhagic shock Assessment/Plan: The patient was moved into the ICU this morning when she developed progressively worsening hypotension (lowest BP 82 systolic) with tachycardia. She received 2 boluses of saline 500 cc each, with temporary improvement in BP to about 100 systolic. The general surgeon had to replace the small chest vac inserted by the ER doctor, with a large standard chest tube in the R lower chest today, due to continued bloody output. There was EBL of 800 cc. Will monitor CBC q6-12 h, transfuse if <7. Remain in ICU. Obtain EKG. Abdullahi placed for accurate I's and O's. Start iv maintenance fluids, since she is obtunded and not eating or drinking, due to the hypotension and from getting anesthetic during the chest tube placement at bedside in the ICU. (2) Bloody pleural effusion Assessment/Plan: This was caused by the surgical procedure (of tube placement in the ER to treat the pneumothorax) plus being on Xarelto. Xarelto is now stopped, her last dose was in tghe morning of 05/28/19. Continue chest tube to suction via the new larger tube placed by the surgeon this morning. Appreciate Gen Surgery following along. (3) Spontaneous pneumothorax Assessment/Plan: As per the admission H&P. This was likely a rupture of a bleb. She has breath sounds in the mid R lung field after re-expansion. Chest tube management and removal will be guided by General Surgery. (4) Lung blebs Assessment/Plan: With such findings in the lungs of a 38 y/o cigarette smoker, she must have severe COPD. There is fairly good air movement, but she is tachypneic and has shallow breaths, therefore ABG was ordered. She is not acidotic or hypoventilating, but needs supplemental O2. (5) Iron deficiency anemia Qualifiers: Iron deficiency anemia type: unspecified iron deficiency Qualified Code(s): D50.9 - Iron deficiency anemia, unspecified Assessment/Plan: She carries this Dx before the hemorrhage today. She has been followed by Dr Russo, Stone Carriage Operator, in our [facility] clinic. She told the admitting Hospitalist that she has not undergone a bone marrow biopsy yet, for work up. She has needed iv Iron infusions. Follow H/H q6-12 h. (6) Acute superficial venous thrombosis of right lower extremity Assessment/Plan: Apparently, she had been started on Xarelto since her superficial venous thrombosis was very close to her deep femoral venous system. Xarelto has now been stopped due to the bleeding above. No INR was done this admission as it would be inaccurate (and not predictably high or low INR) on any of the new anticoagulants (Xarelto, Eliquis or Pradaxa). (7) Tobacco use Assessment/Plan: She may request a Nicotine patch, when she is more awake and alert. Smoking cessation will be stressed. - Current Meds Current Meds: Current Medications Generic Name Dose Route Start Last Admin Trade Name Freq PRN Reason Stop Dose Admin Promethazine HCl 25 mg/ Sodium 51 mls @ 100 mls/hr 05/28/19 23:54 05/29/19 07:09 Chloride IV Infused Q6H PRN Infusion Nausea / Vomiting Sodium Chloride 500 mls @ 0 mls/hr 05/29/19 06:02 05/29/19 08:12 Normal Saline 0.9% IV 30 mls/hr Q24H PRN Administration TKO RATE TKO Potassium Chloride/Dextrose/Sod Cl 1,000 mls @ 125 mls/hr 05/29/19 10:00 05/29/19 09:58 IV 125 mls/hr .Q8H MARIA ISABEL Administration Ondansetron HCl 4 mg 05/28/19 23:33 05/29/19 05:18 Zofran Inj IVP 4 mg Q4HR PRN Administration Nausea / Vomiting Sodium Chloride 10 ml 05/28/19 22:02 05/29/19 07:35 Normal Saline Flush 0.9% IVP 10 ml PRN PRN Administration NEEDED PER PROVIDER ORDERS Sodium Chloride 10 ml 05/29/19 01:00 05/29/19 03:00 Normal Saline Flush 0.9% IVP 10 ml 0100,0900,1700 MARIA ISABEL Administration - Lab Result Fish Bone Diagrams: 05/29/19 05:45 05/29/19 05:45 - EKG Results EKG Interpreted Independently: Yes EKG Comparison: Unchanged from prior EKG EKG Findings: Sinus tachy at 99, right atrial enlargement, flat inferior T waves. Similar to EKG from yesterday. - Additional Planning My Orders: My Active Orders 05/29/19 09:32 Abdullahi Insertion [RC] QSHIFT 05/29/19 09:33 Blood Glucose POC [RC] 0000,0600,1200,1800 Daily Weight [RC] 0600 IO [RC] Q1HR Initiate Bowel Care Protocol [RC] QSHIFT Initiate Flu Vaccine Screening [RC] ONCE Initiate ICU Electrolyte Prot. [RC] .protocol Initiate Personal Care Protoco [RC] .protocol Initiate Pneumonia Vaccine Scr [RC] ONCE HYDROmorphone INJ SYRINGE [Dilaudid Inj Syringe] 0.5 mg IVP Q2H PRN 05/29/19 09:34 Turn, Cough and Deep Breathe [RC] Routine 05/29/19 10:00 D5ns W/20 Meq KCl 1,000 ml IV 125 mls/hr 05/29/19 11:45 MRSA PCR,CCU ADMIT Routine 05/29/19 14:00 CBC - COMP BLD CT W/AUTO DIFF [HEME] Timed 05/29/19 Lunch Clear Liquid Diet [DIET] Subjective - Subjective Patient Reports: Pain, Shortness of Breath (Requesting for HOB to be elevated.) Nursing Reports: Other (Obtunded, c/o pain at R upper chest vac site.) Objective Vital Signs: Vital Signs - 24 hr 05/28/19 05/28/19 05/28/19 20:45 21:35 21:40 Temperature 36.4 C L Heart Rate 100 92 100 Heart Rate [ Brachial] Respiratory 20 30 H 34 H Rate Blood Pressure 139/93 H 131/79 H 131/78 H Blood Pressure [Left Brachial artery] Blood Pressure [Right Brachial artery] O2 Saturation 96 92 100 05/28/19 05/28/19 05/28/19 21:45 21:50 22:16 Temperature Heart Rate 87 89 95 Heart Rate [ Brachial] Respiratory 27 H 36 H 34 H Rate Blood Pressure 139/93 H 125/110 H 135/77 H Blood Pressure [Left Brachial artery] Blood Pressure [Right Brachial artery] O2 Saturation 95 93 93 05/28/19 05/29/19 05/29/19 23:45 01:54 03:04 Temperature Heart Rate Heart Rate [ 111 H 84 80 Brachial] Respiratory 20 16 Rate Blood Pressure Blood Pressure [Left Brachial artery] Blood Pressure 130/82 H 106/66 [Right Brachial artery] O2 Saturation 91 L 97 05/29/19 05/29/19 05/29/19 05:32 08:43 09:08 Temperature 36.4 C L Heart Rate Heart Rate [ 81 86 107 H Brachial] Respiratory 24 20 Rate Blood Pressure Blood Pressure [Left Brachial artery] Blood Pressure 112/53 L 94/56 L 82/49 L [Right Brachial artery] O2 Saturation 96 94 94 05/29/19 05/29/19 05/29/19 09:10 09:15 09:20 Temperature Heart Rate Heart Rate [ 109 H 108 H 112 H Brachial] Respiratory Rate Blood Pressure Blood Pressure [Left Brachial artery] Blood Pressure 84/51 L 85/48 L 86/51 L [Right Brachial artery] O2 Saturation 95 97 99 05/29/19 05/29/19 05/29/19 09:30 10:01 10:43 Temperature Heart Rate Heart Rate [ 109 H 117 H 117 H Brachial] Respiratory 28 H 25 H Rate Blood Pressure Blood Pressure 103/64 [Left Brachial artery] Blood Pressure 84/51 L 105/61 [Right Brachial artery] O2 Saturation 98 4 L 94 05/29/19 05/29/19 05/29/19 10:45 11:00 11:05 Temperature Heart Rate Heart Rate [ 119 H 117 H 113 H Brachial] Respiratory 20 25 H 29 H Rate Blood Pressure Blood Pressure [Left Brachial artery] Blood Pressure 99/64 95/60 90/54 L [Right Brachial artery] O2 Saturation 95 95 95 05/29/19 05/29/19 11:10 11:15 Temperature Heart Rate Heart Rate [ 115 H 98 Brachial] Respiratory 32 H 25 H Rate Blood Pressure Blood Pressure [Left Brachial artery] Blood Pressure 101/65 89/58 L [Right Brachial artery] O2 Saturation 93 95 Oxygen O2 Source Nasal cannula I&O (Last 24 Hrs): Intake and Output Totals x24h 05/27/19 05/28/19 05/29/19 23:59 23:59 23:59 Intake Total 102 Output Total 30 1360 Balance -30 -1258 General: Moderate distress, Other (Obtunded) HEENT: Other (Dry mucosa of lips and tongue, good dentition.) Neck: Supple, No JVD Neuro: Other (Obtunded, answers with eyes closed) Cardiovascular: No murmurs, Other (very distant heart sounds.) Respiratory: Other (Sallow rapid breathing (appears to be splinting). Breath sounds in r mid-lung field only, not at apex of R lung or base of R lung. L side normal.) Abdomen: Soft Extremities: No edema, Other (Tatoos of upper extremity) Skin: No rashes (Pale) - Results Results: Laboratory Results WBC 24.9 x10^3/uL (4.8-10.8) H 05/29/19 05:45 RBC 4.20 10^6/uL (4.20-5.40) 05/29/19 05:45 Hgb 10.2 g/dL (12.0-16.0) L 05/29/19 05:45 Hct 34.4 % (37.0-47.0) L 05/29/19 05:45 MCV 81.9 fL (81.0-99.0) 05/29/19 05:45 MCH 24.3 pg (27.0-31.0) L 05/29/19 05:45 MCHC 29.7 g/dL (32.0-36.0) L 05/29/19 05:45 RDW TNP 05/29/19 05:45 Plt Count 188 10^3/uL (130-450) 05/29/19 05:45 MPV 10.6 fL (7.9-10.8) 05/29/19 05:45 Neut # (Auto) Not Reportable 05/29/19 05:45 Lymph # (Auto) Not Reportable 05/29/19 05:45 [place] # (Auto) Not Reportable 05/29/19 05:45 Eos # (Auto) Not Reportable 05/29/19 05:45 Baso # (Auto) Not Reportable 05/29/19 05:45 Absolute Nucleated RBC Not Reportable 05/29/19 05:45 Total Counted 100 05/29/19 05:45 Band Neuts % (Manual) 3 % (0-10) 05/29/19 05:45 Abnorm Lymph % (Manual) 0 % 05/29/19 05:45 Nucleated RBC % Not Reportable 05/29/19 05:45 Neutrophils # (Manual) 23.4 10^3/uL (1.5-6.6) H 05/29/19 05:45 Lymphocytes # (Manual) 1.0 10^3/uL (1.5-3.5) L 05/29/19 05:45 Monocytes # (Manual) 0.5 10^3/uL (0.0-1.0) 05/29/19 05:45 Eosinophils # (Manual) 0.0 10^3/uL (0-0.7) 05/29/19 05:45 Basophils # (Manual) 0.0 10^3/uL (0-0.1) 05/29/19 05:45 Differential Comment MANUAL DIFFERENTIAL 05/29/19 05:45 Manual Slide Review Indicated 05/28/19 20:58 WBC Morphology NORMAL APPEARANCE (NORMAL) 05/29/19 05:45 Platelet Estimate NORMAL (130-450,000) (NORMAL) 05/29/19 05:45 Platelet Morphology NORMAL APPEARANCE (NORMAL) 05/29/19 05:45 RBC Morph Micro Appear DIMORPHIC RBCS (NORMAL) 2+ HYPOCHROMASIA (NORMAL) 05/28/19 20:58 RBC Morph Micro Appear 2+ HYPOCHROMASIA (NORMAL) DIMORPHIC RBCS (NORMAL) 05/29/19 05:45 RBC Morph Micro Appear 2+ HYPOCHROMASIA (NORMAL) DIMORPHIC RBCS (NORMAL) 05/29/19 05:45 Bld Gas Analysis Time 0905/29/19 09:44 Sample Site RIGHT RADIAL 05/29/19 09:44 ABG pH 7.39 (7.35-7.45) 05/29/19 09:44 ABG pCO2 38 mmHg (34-45) 05/29/19 09:44 ABG pO2 61 mmHg (80-100) L 05/29/19 09:44 ABG HCO3 22.8 mmol/L (22.0-26.0) 05/29/19 09:44 ABG Total CO2 24.0 MMOL/L (21.0-29.0) 05/29/19 09:44 ABG O2 Saturation 91 % (94-98) L 05/29/19 09:44 ABG Oximetry Spot Check 96 % 05/29/19 09:44 ABG Base Excess -1.8 mmol/L (-2.0-3.0) 05/29/19 09:44 Mike Test POSITIVE 05/29/19 09:44 Respiration Rate 32 b/min 05/29/19 09:44 O2 Delivery Device NASAL CANNULA 05/29/19 09:44 O2 Liters/Min 2.00 LPM 05/29/19 09:44 Sodium 138 mmol/L (135-145) 05/29/19 05:45 Potassium 4.3 mmol/L (3.5-5.0) 05/29/19 05:45 Chloride 105 mmol/L (101-111) 05/29/19 05:45 Carbon Dioxide 26 mmol/L (21-32) 05/29/19 05:45 Anion Gap 7.0 (6-13) 05/29/19 05:45 BUN 9 mg/dL (6-20) 05/29/19 05:45 Creatinine 0.8 mg/dL (0.4-1.0) 05/29/19 05:45 Estimated GFR (MDRD) 80 (>89) L 05/29/19 05:45 Glucose 136 mg/dL (70-100) H 05/29/19 05:45 Calcium 8.4 mg/dL (8.5-10.3) L 05/29/19 05:45 Total Bilirubin 0.4 mg/dL (0.2-1.0) 05/28/19 20:58 AST 24 IU/L (10-42) 05/28/19 20:58 ALT 20 IU/L (10-60) 05/28/19 20:58 Alkaline Phosphatase 22 IU/L (42-121) L 05/28/19 20:58 Troponin I High Sens 2.9 ng/L (2.3-14.8) 05/28/19 20:58 Total Protein 7.6 g/dL (6.7-8.2) 05/28/19 20:58 Albumin 4.6 g/dL (3.2-5.5) 05/28/19 20:58 Globulin 3.0 g/dL (2.1-4.2) 05/28/19 20:58 Albumin/Globulin Ratio 1.5 (1.0-2.2) 05/28/19 20:58 Lipase 37 U/L (22-51) 05/28/19 20:58 Urine Opiates Screen POSITIVE (NEGATIVE) H 05/29/19 11:45 Ur Oxycodone Screen NEGATIVE (NEGATIVE) 05/29/19 11:45 Urine Methadone Screen NEGATIVE (NEGATIVE) 05/29/19 11:45 Ur Propoxyphene Screen NEGATIVE (NEGATIVE) 05/29/19 11:45 Ur Barbiturates Screen NEGATIVE (NEGATIVE) 05/29/19 11:45 Ur Tricyclics Screen NEGATIVE (NEGATIVE) 05/29/19 11:45 Ur Phencyclidine Scrn NEGATIVE (NEGATIVE) 05/29/19 11:45 Ur Amphetamine Screen NEGATIVE (NEGATIVE) 05/29/19 11:45 U Methamphetamines Scrn NEGATIVE (NEGATIVE) 05/29/19 11:45 U Benzodiazepines Scrn POSITIVE (NEGATIVE) H 05/29/19 11:45 Urine Cocaine Screen NEGATIVE (NEGATIVE) 05/29/19 11:45 U Cannabinoids Screen NEGATIVE (NEGATIVE) 05/29/19 11:45 - Procedures Procedures: Procedures BILAT ENDOS OCC TUBE NEC (09/21/14) RESECTION OF BI FALLOPIAN TUBE, VIA OPENING W PERC ENDO (07/15/18) RESECTION OF UTERUS, VIA OPENING W PERC ENDO (07/15/18)
[2019-05-29] MEDS: HYDROmorphone 0.5 MG/0.5 ML SYRINGE IVP PRN ×5 (12:55→23:59)
[2019-05-29 14:23] LABS: BASOPHILS # (AUTO) 0.1 10^3/uL (0.0-0.1); BASOPHILS % (AUTO) 0.4 %; EOSINOPHILS % (AUTO) 0.1 %; HGB - HEMOGLOBIN 7.2 g/dL (12.0-16.0); LYMPHOCYTES # (AUTO) 1.5 10^3/uL (1.5-3.5); LYMPHOCYTES % (AUTO) 7.9 %; MEAN CORPUSCULAR HEMOGLOBIN 24.7 pg (27.0-31.0); MEAN CORPUSCULAR HGB CONC 29.8 g/dL (32.0-36.0); MEAN CORPUSCULAR VOLUME 82.9 fL (81.0-99.0); MEAN PLATELET VOLUME 11.1 fL (7.9-10.8); MONOCYTES # (AUTO) 1.1 10^3/uL (0.0-1.0); MONOCYTES % (AUTO) 5.6 %; NEUTROPHILS # (AUTO) 16.1 10^3/uL (1.5-6.6); NEUTROPHILS % (AUTO) 85.4 %; PLT - PLATELET COUNT 193 10^3/uL (130-450); RED BLOOD COUNT 2.92 10^6/uL (4.20-5.40); WHITE BLOOD COUNT 18.8 x10^3/uL (4.8-10.8)
[2019-05-29 14:50] LABS: PLATELET ESTIMATE, MANUAL NORMAL (130-450,000) (NORMAL); PLATELET MORPHOLOGY NORMAL APPEARANCE (NORMAL)
[2019-05-29] MEDS ORDERED: ACETAMINOPHEN 325 MG TABLET PO SCH (16:43)
[2019-05-29] MEDS ORDERED: diphenhydrAMINE 25 MG CAPSULE PO SCH (16:45)
[2019-05-29] MEDS ORDERED: SODIUM CHLORIDE FLUSH 0.9% 10 ML SYRINGE IVP SCH (17:00)
[2019-05-29 17:11] LABS: VBG BASE EXCESS -2.2 mmol/L (-2 - +2); VBG PCO2 43.4 mmHg (41-51); VBG PH 7.348 (7.31-7.41); VBG PO2 29.6 mmHg (25-47); VBG TOTAL CO2 24.6 mmol/L (24-29)
[2019-05-30] MEDS: SODIUM CHLORIDE FLUSH 0.9% 10 ML SYRINGE IVP PRN ×7 (00:57→19:46)
[2019-05-30] MEDS: HYDROmorphone 0.5 MG/0.5 ML SYRINGE IVP PRN ×7 (03:03→19:45)
[2019-05-30 05:05] LABS: BASOPHILS # (AUTO) 0.1 10^3/uL (0.0-0.1); BASOPHILS % (AUTO) 0.4 %; EOSINOPHILS # (AUTO) 0.1 10^3/uL (0.0-0.7); EOSINOPHILS % (AUTO) 0.7 %; HGB - HEMOGLOBIN 8.1 g/dL (12.0-16.0); LYMPHOCYTES # (AUTO) 2.3 10^3/uL (1.5-3.5); LYMPHOCYTES % (AUTO) 19.7 %; MEAN CORPUSCULAR HEMOGLOBIN 27.4 pg (27.0-31.0); MEAN CORPUSCULAR HGB CONC 32.3 g/dL (32.0-36.0); MEAN CORPUSCULAR VOLUME 84.8 fL (81.0-99.0); MEAN PLATELET VOLUME 10.9 fL (7.9-10.8); MONOCYTES # (AUTO) 1.3 10^3/uL (0.0-1.0); NEUTROPHILS % (AUTO) 67.5 %; PLT - PLATELET COUNT 124 10^3/uL (130-450); RED BLOOD COUNT 2.96 10^6/uL (4.20-5.40); RED CELL DISTRIBUTION WIDTH 27.9 % (12.0-15.0); WHITE BLOOD COUNT 11.8 x10^3/uL (4.8-10.8)
[2019-05-30 05:11] LABS: CALCIUM 7.6 mg/dL (8.5-10.3); CREATININE 0.7 mg/dL (0.4-1.0)
[2019-05-30] MEDS: ONDANSETRON 4 MG/2 ML VIAL IVP PRN ×2 (06:10)
[2019-05-30 06:21] LABS: PLATELET ESTIMATE, MANUAL DECREASED (<130,000) (NORMAL); PLATELET MORPHOLOGY NORMAL APPEARANCE (NORMAL)
[2019-05-30] MEDS: HYDROcod/ACETAM 5/325 MG TABLET PO PRN ×4 (07:23→23:33)
[2019-05-30] MEDS: D5NS W/20 MEQ KCL 1,000 ML IV SCH ×2 (07:56→17:02)
[2019-05-30] MEDS: SODIUM CHLORIDE FLUSH 0.9% 10 ML SYRINGE IVP SCH ×2 (08:45→17:02)
--- NOTE | 2019-05-30 09:13 | XRAY Report ---
Reason: chest pain, pneumothorax Procedure Date: 05/30/2019 Accession Number: [id number] / [id number] Procedure: XR - Chest 1 View X-Ray CPT Code: 82435 Final Report FULL RESULT: EXAM: CHEST RADIOGRAPHY EXAM DATE: 05/30/2019 07:37 AM. CLINICAL HISTORY: Chest pain, pneumothorax. COMPARISON: Chest radiograph from 05/29/2019, 05/28/2019; CTA chest from 05/28/2019. TECHNIQUE: 1 view. FINDINGS: Lungs/Pleura: There is a small right apical pneumothorax measuring approximately 12 mm. Immediately inferior to this pneumothorax, there is an area of lentiform density measuring approximately 44 mm in thickness. Given the density, this may represent loculated apical fluid rather than pulmonary consolidation. A small-moderate layering right pleural effusion is also present. There is hazy opacity throughout the aerated right lung. Minimal hazy left basilar opacity present. No left pleural effusion or pneumothorax. Mediastinum: The right cardiac and mediastinal contours are obscured. Left cardiac and mediastinal contours are within normal limits. Pulmonary vasculature is unremarkable. Other: A right chest tube remains in place. IMPRESSION: 1. Findings suggestive of loculated right hydropneumothorax with small pneumothorax component and moderate pleural effusion component. Pneumothorax component is new or more conspicuous since the prior examination. Right chest tube remains in place. 2. Diffuse hazy airspace opacities throughout the right lung, suspected to represent combination of atelectasis and infiltrate. 3. Probable mild left basilar atelectasis. RADIA
--- NOTE | 2019-05-30 09:58 | PROVIDER PROGRESS NOTE ---
Subjective - General Admit Date: 05/28/19 Procedure Date: 07/15/18 Post Op Days: 319 Procedure Performed: right chest tube thoracostomy - Review of Systems Drain Type: right chest tube (32 Fr) Drain Output Description: dark blood Approximate mls Output: 800cc initially; close to 1400cc total with now minimal output All Other Systems: positive: Reviewed and negative - Other Other Information/Narrative: Sore but overall improved. BP normal, tachycardia improving. CT output slowing, all looks like older blood and not active bleed. Small air leak with cough. Objective - Patient Data Vital Signs: Vital Signs x48h Temp Pulse Resp BP Pulse Ox 05/30/19 09:00 83 28 H 114/64 100 05/30/19 08:00 37.1 C 105 H 20 125/71 92 05/30/19 07:00 89 22 118/61 95 05/30/19 06:00 37.3 C 80 20 116/57 L 94 05/30/19 05:00 85 23 115/66 94 05/30/19 04:00 37.2 C 80 18 116/65 93 05/30/19 03:00 37.2 C 84 24 131/83 H 94 05/30/19 02:00 97 26 H 130/82 H 94 Weight: Weight 05/28/19 05/29/19 05/30/19 23:59 23:59 23:59 Weight (kg) 58.967 kg 59.5 kg 64.5 kg Intake & Output: Intake and Output Totals x24h 05/28/19 05/29/19 05/30/19 23:59 23:59 23:59 Intake Total 3110.250 2322.5 Output Total 30 2805 625 Balance -30 856.096 8109.5 - Lab Results Lab Results: 05/30/19 04:10 05/30/19 04:10 Other Lab Results: Lab Results x24hrs 05/30/19 05/30/19 05/30/19 Range/Units 04:10 04:10 00:02 WBC 11.8 H (4.8-10.8) x10^3/uL RBC 2.96 L (4.20-5.40) 10^6/uL Hgb 8.1 L (12.0-16.0) g/dL Hct 25.1 L (37.0-47.0) % MCV 84.8 (81.0-99.0) fL MCH 27.4 (27.0-31.0) pg MCHC 32.3 (32.0-36.0) g/dL RDW 27.9 H (12.0-15.0) % Plt Count 124 L (130-450) 10^3/uL MPV 10.9 H (7.9-10.8) fL Neut # (Auto) 8.0 H (1.5-6.6) 10^3/uL Lymph # (Auto) 2.3 (1.5-3.5) 10^3/uL [place] # (Auto) 1.3 H (0.0-1.0) 10^3/uL Eos # (Auto) 0.1 (0.0-0.7) 10^3/uL Baso # (Auto) 0.1 (0.0-0.1) 10^3/uL Absolute Nucleated RBC 0.00 x10^3/uL Nucleated RBC % 0.0 /100WBC Manual Slide Review Indicated WBC Morphology NORMAL APPEARANCE (NORMAL) Platelet Estimate DECREASED (<130,000) (NORMAL) Platelet Morphology NORMAL APPEARANCE (NORMAL) RBC Morph Micro Appear 1+ HYPOCHROMASIA (NORMAL) VBG pH (7.31-7.41) VBG pCO2 (41-51) mmHg VBG pO2 (25-47) mmHg VBG HCO3 (23-28) mmol/L VBG Total CO2 (24-29) mmol/L VBG O2 Saturation (60-80) % VBG Base Excess (-2 - +2) mmol/L Sodium 136 (135-145) mmol/L Potassium 4.3 (3.5-5.0) mmol/L Chloride 107 (101-111) mmol/L Carbon Dioxide 25 (21-32) mmol/L Anion Gap 4.0 L (6-13) BUN 14 (6-20) mg/dL Creatinine 0.7 (0.4-1.0) mg/dL Estimated GFR (MDRD) 93 (>89) Glucose 127 H (70-100) mg/dL POC Whole Bld Glucose 112 H (70 - 100) mg/dL Calcium 7.6 L (8.5-10.3) mg/dL Nasal Screen MRSA (PCR) (NEGATIVE) Urine Opiates Screen (NEGATIVE) Ur Oxycodone Screen (NEGATIVE) Urine Methadone Screen (NEGATIVE) Ur Propoxyphene Screen (NEGATIVE) Ur Barbiturates Screen (NEGATIVE) Ur Tricyclics Screen (NEGATIVE) Ur Phencyclidine Scrn (NEGATIVE) Ur Amphetamine Screen (NEGATIVE) U Methamphetamines Scrn (NEGATIVE) U Benzodiazepines Scrn (NEGATIVE) Urine Cocaine Screen (NEGATIVE) U Cannabinoids Screen (NEGATIVE) Blood Type Antibody Screen Crossmatch IS Only 05/29/19 05/29/19 05/29/19 Range/Units 18:00 17:03 17:03 WBC (4.8-10.8) x10^3/uL RBC (4.20-5.40) 10^6/uL Hgb (12.0-16.0) g/dL Hct (37.0-47.0) % MCV (81.0-99.0) fL MCH (27.0-31.0) pg MCHC (32.0-36.0) g/dL RDW (12.0-15.0) % Plt Count (130-450) 10^3/uL MPV (7.9-10.8) fL Neut # (Auto) (1.5-6.6) 10^3/uL Lymph # (Auto) (1.5-3.5) 10^3/uL [place] # (Auto) (0.0-1.0) 10^3/uL Eos # (Auto) (0.0-0.7) 10^3/uL Baso # (Auto) (0.0-0.1) 10^3/uL Absolute Nucleated RBC x10^3/uL Nucleated RBC % /100WBC Manual Slide Review WBC Morphology (NORMAL) Platelet Estimate (NORMAL) Platelet Morphology (NORMAL) RBC Morph Micro Appear (NORMAL) VBG pH 7.348 (7.31-7.41) VBG pCO2 43.4 (41-51) mmHg VBG pO2 29.6 (25-47) mmHg VBG HCO3 23.3 (23-28) mmol/L VBG Total CO2 24.6 (24-29) mmol/L VBG O2 Saturation 53.5 L (60-80) % VBG Base Excess -2.2 L (-2 - +2) mmol/L Sodium (135-145) mmol/L Potassium (3.5-5.0) mmol/L Chloride (101-111) mmol/L Carbon Dioxide (21-32) mmol/L Anion Gap (6-13) BUN (6-20) mg/dL Creatinine (0.4-1.0) mg/dL Estimated GFR (MDRD) (>89) Glucose (70-100) mg/dL POC Whole Bld Glucose 152 H (70 - 100) mg/dL Calcium (8.5-10.3) mg/dL Nasal Screen MRSA (PCR) (NEGATIVE) Urine Opiates Screen (NEGATIVE) Ur Oxycodone Screen (NEGATIVE) Urine Methadone Screen (NEGATIVE) Ur Propoxyphene Screen (NEGATIVE) Ur Barbiturates Screen (NEGATIVE) Ur Tricyclics Screen (NEGATIVE) Ur Phencyclidine Scrn (NEGATIVE) Ur Amphetamine Screen (NEGATIVE) U Methamphetamines Scrn (NEGATIVE) U Benzodiazepines Scrn (NEGATIVE) Urine Cocaine Screen (NEGATIVE) U Cannabinoids Screen (NEGATIVE) Blood Type A POSITIVE Antibody Screen NEGATIVE Crossmatch IS Only See Detail 05/29/19 05/29/19 05/29/19 Range/Units 14:06 14:05 11:45 WBC 18.8 H (4.8-10.8) x10^3/uL RBC 2.92 L (4.20-5.40) 10^6/uL Hgb 7.2 L (12.0-16.0) g/dL Hct 24.2 L (37.0-47.0) % MCV 82.9 (81.0-99.0) fL MCH 24.7 L (27.0-31.0) pg MCHC 29.8 L (32.0-36.0) g/dL RDW (12.0-15.0) % Plt Count 193 (130-450) 10^3/uL MPV 11.1 H (7.9-10.8) fL Neut # (Auto) 16.1 H (1.5-6.6) 10^3/uL Lymph # (Auto) 1.5 (1.5-3.5) 10^3/uL [place] # (Auto) 1.1 H (0.0-1.0) 10^3/uL Eos # (Auto) 0.0 (0.0-0.7) 10^3/uL Baso # (Auto) 0.1 (0.0-0.1) 10^3/uL Absolute Nucleated RBC 0.00 x10^3/uL Nucleated RBC % 0.0 /100WBC Manual Slide Review Indicated WBC Morphology (NORMAL) Platelet Estimate NORMAL (130-450,000) (NORMAL) Platelet Morphology NORMAL APPEARANCE (NORMAL) RBC Morph Micro Appear 2+ ANISOCYTOSIS (NORMAL) VBG pH (7.31-7.41) VBG pCO2 (41-51) mmHg VBG pO2 (25-47) mmHg VBG HCO3 (23-28) mmol/L VBG Total CO2 (24-29) mmol/L VBG O2 Saturation (60-80) % VBG Base Excess (-2 - +2) mmol/L Sodium (135-145) mmol/L Potassium (3.5-5.0) mmol/L Chloride (101-111) mmol/L Carbon Dioxide (21-32) mmol/L Anion Gap (6-13) BUN (6-20) mg/dL Creatinine (0.4-1.0) mg/dL Estimated GFR (MDRD) (>89) Glucose (70-100) mg/dL POC Whole Bld Glucose 132 H (70 - 100) mg/dL Calcium (8.5-10.3) mg/dL Nasal Screen MRSA (PCR) (NEGATIVE) Urine Opiates Screen POSITIVE H (NEGATIVE) Ur Oxycodone Screen NEGATIVE (NEGATIVE) Urine Methadone Screen NEGATIVE (NEGATIVE) Ur Propoxyphene Screen NEGATIVE (NEGATIVE) Ur Barbiturates Screen NEGATIVE (NEGATIVE) Ur Tricyclics Screen NEGATIVE (NEGATIVE) Ur Phencyclidine Scrn NEGATIVE (NEGATIVE) Ur Amphetamine Screen NEGATIVE (NEGATIVE) U Methamphetamines Scrn NEGATIVE (NEGATIVE) U Benzodiazepines Scrn POSITIVE H (NEGATIVE) Urine Cocaine Screen NEGATIVE (NEGATIVE) U Cannabinoids Screen NEGATIVE (NEGATIVE) Blood Type Antibody Screen Crossmatch IS Only 05/29/19 Range/Units 11:45 WBC (4.8-10.8) x10^3/uL RBC (4.20-5.40) 10^6/uL Hgb (12.0-16.0) g/dL Hct (37.0-47.0) % MCV (81.0-99.0) fL MCH (27.0-31.0) pg MCHC (32.0-36.0) g/dL RDW (12.0-15.0) % Plt Count (130-450) 10^3/uL MPV (7.9-10.8) fL Neut # (Auto) (1.5-6.6) 10^3/uL Lymph # (Auto) (1.5-3.5) 10^3/uL [place] # (Auto) (0.0-1.0) 10^3/uL Eos # (Auto) (0.0-0.7) 10^3/uL Baso # (Auto) (0.0-0.1) 10^3/uL Absolute Nucleated RBC x10^3/uL Nucleated RBC % /100WBC Manual Slide Review WBC Morphology (NORMAL) Platelet Estimate (NORMAL) Platelet Morphology (NORMAL) RBC Morph Micro Appear (NORMAL) VBG pH (7.31-7.41) VBG pCO2 (41-51) mmHg VBG pO2 (25-47) mmHg VBG HCO3 (23-28) mmol/L VBG Total CO2 (24-29) mmol/L VBG O2 Saturation (60-80) % VBG Base Excess (-2 - +2) mmol/L Sodium (135-145) mmol/L Potassium (3.5-5.0) mmol/L Chloride (101-111) mmol/L Carbon Dioxide (21-32) mmol/L Anion Gap (6-13) BUN (6-20) mg/dL Creatinine (0.4-1.0) mg/dL Estimated GFR (MDRD) (>89) Glucose (70-100) mg/dL POC Whole Bld Glucose (70 - 100) mg/dL Calcium (8.5-10.3) mg/dL Nasal Screen MRSA (PCR) NEGATIVE (NEGATIVE) Urine Opiates Screen (NEGATIVE) Ur Oxycodone Screen (NEGATIVE) Urine Methadone Screen (NEGATIVE) Ur Propoxyphene Screen (NEGATIVE) Ur Barbiturates Screen (NEGATIVE) Ur Tricyclics Screen (NEGATIVE) Ur Phencyclidine Scrn (NEGATIVE) Ur Amphetamine Screen (NEGATIVE) U Methamphetamines Scrn (NEGATIVE) U Benzodiazepines Scrn (NEGATIVE) Urine Cocaine Screen (NEGATIVE) U Cannabinoids Screen (NEGATIVE) Blood Type Antibody Screen Crossmatch IS Only - Current Medications Current Medications: Current Medications Generic Name Dose Route Start Last Admin Trade Name Freq PRN Reason Stop Dose Admin Hydrocodone Bitart/Acetaminophen 1 tab 05/28/19 22:02 05/30/19 07:23 [place] 5/325 PO 1 tab Q4HR PRN Administration Pain 5 to 7 Hydromorphone HCl 0.5 mg 05/29/19 09:33 05/30/19 06:10 Dilaudid Inj Syringe IVP 0.5 mg Q2H PRN Administration Pain 8 to 10 Promethazine HCl 25 mg/ Sodium 51 mls @ 100 mls/hr 05/28/19 23:54 05/29/19 07:09 Chloride IV Infused Q6H PRN Infusion Nausea / Vomiting Sodium Chloride 500 mls @ 0 mls/hr 05/29/19 06:02 05/30/19 00:58 Normal Saline 0.9% IV Infused Q24H PRN Infusion TKO RATE TKO Potassium Chloride/Dextrose/Sod Cl 1,000 mls @ 125 mls/hr 05/29/19 10:00 05/30/19 07:56 IV 125 mls/hr .Q8H MARIA ISABEL Administration Ondansetron HCl 4 mg 05/28/19 23:33 05/30/19 06:10 Zofran Inj IVP 4 mg Q4HR PRN Administration Nausea / Vomiting Sodium Chloride 10 ml 05/28/19 22:02 05/30/19 06:11 Normal Saline Flush 0.9% IVP 10 ml PRN PRN Administration NEEDED PER PROVIDER ORDERS Sodium Chloride 10 ml 05/29/19 01:00 05/29/19 21:35 Normal Saline Flush 0.9% IVP 10 ml 0100,[id number],1700 MARIA ISABEL Administration - Physical Exam Comments/Other: AAO, NAD, female of healthy weight EOMI, MMM unlabored 2 LNC; R CT in place, small air leak with cough only abd soft MAEW Impression/Plan - Problem List Problem List: R PNX/FABIOLA - R CT in place, draining what looks like all old blood, no active bleeding - CXR showing persistent apical PNX and patchy opacities throughout lung with some persistent effusion and atelectasis at base - breath sounds improving but still has small air leak with cough - keep CT to -20mmHg today; if no improvement after a few days may have to consider surgery - pain control - ambulate, move around to aid drainage - hold anticaogulation; soft indication already- mobilize pt and use SCDs
--- NOTE | 2019-05-30 10:45 | PROVIDER PROGRESS NOTE ---
Assessment/Plan - Problem List (1) Bloody pleural effusion Assessment/Plan: The hemorrhagic drainage from the chest tube has decreased. The Gen Surgeon plans to keep the tube in for a couple more days. Daily CXRs planned while has chest tube in place. Also follow H/H q12h, transfuse if <7. Will also resume her oral muti-vitamin and oral Iron replacement, that she was on before this admission. Remain in ICU since the hemorrhagic shock has only stabilized last night. (2) Infiltrate of lung present on chest x-ray Assessment/Plan: The CXR reading by the Radiologist states infiltrate and atelecatsis of the re- expanded R lung. Will start empiric treatment for pneumonia, she has been here < 48 hours, therefore will manage as a community acquired pneumonia, using iv Ceftriaxone and iv Zithromycin. Daily CXRs planned while has chest tube in place. (3) Spontaneous pneumothorax Assessment/Plan: Related to underlying blebs and emphysema in a smoker. If the chest tube suction does not correct the re-expansion, and if she would need thoracic surgery, she will need transfer to another facility with higher level of care available. This was discussed with the Gen Surgeon, Dr Orellana today. Daily CXRs planned while chest tube in place. (4) Lung blebs Assessment/Plan: As in #3. (5) Iron deficiency anemia Qualifiers: Iron deficiency anemia type: unspecified iron deficiency Qualified Code(s): D50.9 - Iron deficiency anemia, unspecified Assessment/Plan: She carries this Dx before the hemorrhage today. She has been followed by Dr Russo, [employer], in our [facility] clinic. She told the admitting Hospitalist that she has not undergone a bone marrow biopsy yet, for work up. She has needed iv Iron infusions. Will also resume her oral muti-vitamin and oral Iron replacement, that she was on before this admission. Follow H/H q6-12 h. (6) Acute superficial venous thrombosis of right lower extremity Assessment/Plan: Xarelto was stopped at the time of admission, therefore this morning she has been 48 hours since her last Xarelto dose, which is when the Xarelto effect has ceased. (7) Tobacco use Assessment/Plan: Nicotine patch will be offered if she wants it. (8) Hemorrhagic shock Assessment/Plan: Shock has resolved. BP > 100. Hemorrhagic drainage into chest tube has decreased. - Current Meds Current Meds: Current Medications Generic Name Dose Route Start Last Admin Trade Name Freq PRN Reason Stop Dose Admin Hydrocodone Bitart/Acetaminophen 1 tab 05/28/19 22:02 05/30/19 07:23 [place] 5/325 PO 1 tab Q4HR PRN Administration Pain 5 to 7 Hydromorphone HCl 0.5 mg 05/29/19 09:33 05/30/19 06:10 Dilaudid Inj Syringe IVP 0.5 mg Q2H PRN Administration Pain 8 to 10 Promethazine HCl 25 mg/ Sodium 51 mls @ 100 mls/hr 05/28/19 23:54 05/29/19 07:09 Chloride IV Infused Q6H PRN Infusion Nausea / Vomiting Sodium Chloride 500 mls @ 0 mls/hr 05/29/19 06:02 05/30/19 00:58 Normal Saline 0.9% IV Infused Q24H PRN Infusion TKO RATE TKO Potassium Chloride/Dextrose/Sod Cl 1,000 mls @ 125 mls/hr 05/29/19 10:00 05/30/19 07:56 IV 125 mls/hr .Q8H MARIA ISABEL Administration Ondansetron HCl 4 mg 05/28/19 23:33 05/30/19 06:10 Zofran Inj IVP 4 mg Q4HR PRN Administration Nausea / Vomiting Sodium Chloride 10 ml 05/28/19 22:02 05/30/19 06:11 Normal Saline Flush 0.9% IVP 10 ml PRN PRN Administration NEEDED PER PROVIDER ORDERS Sodium Chloride 10 ml 05/29/19 01:00 05/29/19 21:35 Normal Saline Flush 0.9% IVP 10 ml 0100,0900,1700 MARIA ISABEL Administration - Lab Result Fish Bone Diagrams: 05/30/19 04:10 05/30/19 04:10 - Additional Planning My Orders: My Active Orders 05/29/19 10:00 D5ns W/20 Meq KCl 1,000 ml IV 125 mls/hr 05/29/19 Lunch Clear Liquid Diet [DIET] 05/30/19 09:00 Ferrous Sulfate [Feosol] 325 mg PO DAILY 05/30/19 11:00 Azithromycin Inj [Zithromax Inj] 500 mg Sodium Chloride 0.9% [Normal Saline 0.9%] 250 ml IV DAILY cefTRIAXone [Rocephin] 2 gm Sodium Chloride 0.9% Minibag [Normal Saline 0.9% Minibag] 100 ml IV DAILY 05/30/19 14:00 HEMOGLOBIN AND HEMATOCRIT [HEME] Timed 05/30/19 21:00 Gabapentin [Neurontin] 300 mg PO HS 05/31/19 08:00 Multivitamin [Theragran] 1 tab PO DAILYWM Subjective - Subjective Patient Reports: Pain Nursing Reports: Sedated (After getting narcotics for pain, she is somnolent. The patient did tolerate clear liquids and apple sauce and is interested in having her diet advanced.) Objective Vital Signs: Vital Signs - 24 hr 05/29/19 05/29/19 05/29/19 10:43 10:45 11:00 Temperature Heart Rate Heart Rate [ 117 H 119 H 117 H Brachial] Heart Rate [ Monitoring electrodes] Respiratory 25 H 20 25 H Rate Blood Pressure Blood Pressure 103/64 [Left Brachial artery] Blood Pressure 99/64 95/60 [Right Brachial artery] O2 Saturation 94 95 95 05/29/19 05/29/19 05/29/19 11:05 11:10 11:15 Temperature Heart Rate Heart Rate [ 113 H 115 H 98 Brachial] Heart Rate [ Monitoring electrodes] Respiratory 29 H 32 H 25 H Rate Blood Pressure Blood Pressure [Left Brachial artery] Blood Pressure 90/54 L 101/65 89/58 L [Right Brachial artery] O2 Saturation 95 93 95 05/29/19 05/29/19 05/29/19 11:20 11:25 11:30 Temperature Heart Rate Heart Rate [ 113 H 112 H 104 H Brachial] Heart Rate [ Monitoring electrodes] Respiratory 40 H 43 H 27 H Rate Blood Pressure Blood Pressure [Left Brachial artery] Blood Pressure 94/51 L 89/58 L 98/66 [Right Brachial artery] O2 Saturation 92 92 97 05/29/19 05/29/19 05/29/19 11:45 12:00 12:15 Temperature 36.5 C Heart Rate Heart Rate [ 99 96 94 Brachial] Heart Rate [ Monitoring electrodes] Respiratory 36 H 35 H 33 H Rate Blood Pressure Blood Pressure [Left Brachial artery] Blood Pressure 103/60 99/60 106/63 [Right Brachial artery] O2 Saturation 93 96 94 05/29/19 05/29/19 05/29/19 12:30 12:45 13:00 Temperature Heart Rate Heart Rate [ 91 101 H 102 H Brachial] Heart Rate [ Monitoring electrodes] Respiratory 29 H 19 29 H Rate Blood Pressure Blood Pressure [Left Brachial artery] Blood Pressure 109/62 90/64 99/58 L [Right Brachial artery] O2 Saturation 90 L 100 96 05/29/19 05/29/19 05/29/19 14:00 15:00 15:30 Temperature Heart Rate Heart Rate [ 104 H 114 H 119 H Brachial] Heart Rate [ Monitoring electrodes] Respiratory 32 H 33 H 28 H Rate Blood Pressure Blood Pressure [Left Brachial artery] Blood Pressure 106/71 97/62 88/52 L [Right Brachial artery] O2 Saturation 94 94 97 05/29/19 05/29/19 05/29/19 15:38 16:00 17:00 Temperature 36.8 C 36.8 C Heart Rate Heart Rate [ 126 H 120 H Brachial] Heart Rate [ Monitoring electrodes] Respiratory 16 26 H Rate Blood Pressure Blood Pressure [Left Brachial artery] Blood Pressure 85/43 L 99/68 [Right Brachial artery] O2 Saturation 97 96 05/29/19 05/29/19 05/29/19 18:00 18:17 18:30 Temperature 98.6 C H 36.9 C Heart Rate 114 H 121 H Heart Rate [ 120 H Brachial] Heart Rate [ Monitoring electrodes] Respiratory 37 H 26 H 34 H Rate Blood Pressure 108/70 108/70 Blood Pressure [Left Brachial artery] Blood Pressure 113/71 [Right Brachial artery] O2 Saturation 97 05/29/19 05/29/19 05/29/19 18:45 19:00 20:00 Temperature 37.1 C 37.1 C Heart Rate 102 H Heart Rate [ 106 H Brachial] Heart Rate [ 106 H Monitoring electrodes] Respiratory 28 H 30 H 35 H Rate Blood Pressure 112/73 Blood Pressure [Left Brachial artery] Blood Pressure 113/77 111/71 [Right Brachial artery] O2 Saturation 96 97 05/29/19 05/29/19 05/29/19 21:00 21:27 21:40 Temperature 37.1 C 37.1 C Heart Rate 95 95 Heart Rate [ Brachial] Heart Rate [ 94 Monitoring electrodes] Respiratory 21 21 Rate Blood Pressure 120/75 120/75 Blood Pressure [Left Brachial artery] Blood Pressure 109/77 [Right Brachial artery] O2 Saturation 97 05/29/19 05/29/19 05/29/19 21:45 21:56 22:00 Temperature 37.1 C 37.2 C 37.2 C Heart Rate 98 95 Heart Rate [ Brachial] Heart Rate [ 98 Monitoring electrodes] Respiratory 32 H 25 H 35 H Rate Blood Pressure 119/75 115/77 Blood Pressure [Left Brachial artery] Blood Pressure 119/79 [Right Brachial artery] O2 Saturation 96 05/29/19 05/29/19 05/30/19 22:15 23:00 00:00 Temperature 37 C 37.2 C 37.1 C Heart Rate 91 87 86 Heart Rate [ Brachial] Heart Rate [ 87 92 Monitoring electrodes] Respiratory 19 16 26 H Rate Blood Pressure 119/77 122/82 H 123/78 Blood Pressure [Left Brachial artery] Blood Pressure 122/82 H 123/78 [Right Brachial artery] O2 Saturation 96 94 05/30/19 05/30/19 05/30/19 00:47 01:00 02:00 Temperature 37.2 C 37 C Heart Rate 85 Heart Rate [ Brachial] Heart Rate [ 81 97 Monitoring electrodes] Respiratory 21 19 26 H Rate Blood Pressure 119/79 Blood Pressure [Left Brachial artery] Blood Pressure 122/79 130/82 H [Right Brachial artery] O2 Saturation 94 94 05/30/19 05/30/19 05/30/19 03:00 04:00 05:00 Temperature 37.2 C 37.2 C Heart Rate Heart Rate [ Brachial] Heart Rate [ 84 80 85 Monitoring electrodes] Respiratory 24 18 23 Rate Blood Pressure Blood Pressure [Left Brachial artery] Blood Pressure 131/83 H 116/65 115/66 [Right Brachial artery] O2 Saturation 94 93 94 05/30/19 05/30/19 05/30/19 06:00 07:00 08:00 Temperature 37.3 C 37.1 C Heart Rate Heart Rate [ Brachial] Heart Rate [ 80 89 105 H Monitoring electrodes] Respiratory 20 22 20 Rate Blood Pressure Blood Pressure [Left Brachial artery] Blood Pressure 116/57 L 118/61 125/71 [Right Brachial artery] O2 Saturation 94 95 92 05/30/19 09:00 Temperature Heart Rate Heart Rate [ Brachial] Heart Rate [ 83 Monitoring electrodes] Respiratory 28 H Rate Blood Pressure Blood Pressure [Left Brachial artery] Blood Pressure 114/64 [Right Brachial artery] O2 Saturation 100 Oxygen O2 Source Nasal cannula I&O (Last 24 Hrs): Intake and Output Totals x24h 05/28/19 05/29/1905/29/20 23:59 23:59 23:59 Intake Total 3110.250 2322.5 Output Total 30 6515 875 Balance -30 590.837 7883.5 General: Other (Sedated after narcotics administered.) HEENT: Mucous membr. moist/pink Neck: Supple, No JVD Neuro: Non Focal Cardiovascular: Regular rate Respiratory: Other (Splinting, diminished breath sounds R upper lung field and R base, anteriorly. R Chest tube in place) Extremities: No edema - Results Results: Laboratory Results WBC 11.8 x10^3/uL (4.8-10.8) H 05/30/19 04:10 RBC 2.96 10^6/uL (4.20-5.40) L 05/30/19 04:10 Hgb 8.1 g/dL (12.0-16.0) L 05/30/19 04:10 Hct 25.1 % (37.0-47.0) L 05/30/19 04:10 MCV 84.8 fL (81.0-99.0) 05/30/19 04:10 MCH 27.4 pg (27.0-31.0) 05/30/19 04:10 MCHC 32.3 g/dL (32.0-36.0) 05/30/19 04:10 RDW 27.9 % (12.0-15.0) H 05/30/19 04:10 Plt Count 124 10^3/uL (130-450) L 05/30/19 04:10 MPV 10.9 fL (7.9-10.8) H 05/30/19 04:10 Neut # (Auto) 8.0 10^3/uL (1.5-6.6) H 05/30/19 04:10 Lymph # (Auto) 2.3 10^3/uL (1.5-3.5) 05/30/19 04:10 [place] # (Auto) 1.3 10^3/uL (0.0-1.0) H 05/30/19 04:10 Eos # (Auto) 0.1 10^3/uL (0.0-0.7) 05/30/19 04:10 Baso # (Auto) 0.1 10^3/uL (0.0-0.1) 05/30/19 04:10 Absolute Nucleated RBC 0.00 x10^3/uL 05/30/19 04:10 Total Counted 100 05/29/19 05:45 Band Neuts % (Manual) 3 % (0-10) 05/29/19 05:45 Abnorm Lymph % (Manual) 0 % 05/29/19 05:45 Nucleated RBC % 0.0 /100WBC 05/30/19 04:10 Neutrophils # (Manual) 23.4 10^3/uL (1.5-6.6) H 05/29/19 05:45 Lymphocytes # (Manual) 1.0 10^3/uL (1.5-3.5) L 05/29/19 05:45 Monocytes # (Manual) 0.5 10^3/uL (0.0-1.0) 05/29/19 05:45 Eosinophils # (Manual) 0.0 10^3/uL (0-0.7) 05/29/19 05:45 Basophils # (Manual) 0.0 10^3/uL (0-0.1) 05/29/19 05:45 Differential Comment MANUAL DIFFERENTIAL 05/29/19 05:45 Manual Slide Review Indicated 05/30/19 04:10 WBC Morphology NORMAL APPEARANCE (NORMAL) 05/30/19 04:10 Platelet Estimate DECREASED (<130,000) (NORMAL) 05/30/19 04:10 Platelet Morphology NORMAL APPEARANCE (NORMAL) 05/30/19 04:10 RBC Morph Micro Appear 2+ HYPOCHROMASIA (NORMAL) DIMORPHIC RBCS (NORMAL) 05/29/19 05:45 RBC Morph Micro Appear 2+ HYPOCHROMASIA (NORMAL) 2+ ANISOCYTOSIS (NORMAL) 05/29/19 14:05 RBC Morph Micro Appear 2+ HYPOCHROMASIA (NORMAL) 2+ ANISOCYTOSIS (NORMAL) 05/29/19 14:05 RBC Morph Micro Appear 3+ ANISOCYTOSIS (NORMAL) 1+ HYPOCHROMASIA (NORMAL) 05/30/19 04:10 RBC Morph Micro Appear 3+ ANISOCYTOSIS (NORMAL) 1+ HYPOCHROMASIA (NORMAL) 05/30/19 04:10 Bld Gas Analysis Time 0944 05/29/19 09:44 Sample Site RIGHT RADIAL 05/29/19 09:44 ABG pH 7.39 (7.35-7.45) 05/29/19 09:44 ABG pCO2 38 mmHg (34-45) 05/29/19 09:44 ABG pO2 61 mmHg (80-100) L 05/29/19 09:44 ABG HCO3 22.8 mmol/L (22.0-26.0) 05/29/19 09:44 ABG Total CO2 24.0 MMOL/L (21.0-29.0) 05/29/19 09:44 ABG O2 Saturation 91 % (94-98) L 05/29/19 09:44 ABG Oximetry Spot Check 96 % 05/29/19 09:44 ABG Base Excess -1.8 mmol/L (-2.0-3.0) 05/29/19 09:44 Mike Test POSITIVE 05/29/19 09:44 VBG pH 7.348 (7.31-7.41) 05/29/19 17:03 VBG pCO2 43.4 mmHg (41-51) 05/29/19 17:03 VBG pO2 29.6 mmHg (25-47) 05/29/19 17:03 VBG HCO3 23.3 mmol/L (23-28) 05/29/19 17:03 VBG Total CO2 24.6 mmol/L (24-29) 05/29/19 17:03 VBG O2 Saturation 53.5 % (60-80) L 05/29/19 17:03 VBG Base Excess -2.2 mmol/L (-2 - +2) L 05/29/19 17:03 Respiration Rate 32 b/min 05/29/19 09:44 O2 Delivery Device NASAL CANNULA 05/29/19 09:44 O2 Liters/Min 2.00 LPM 05/29/19 09:44 Sodium 136 mmol/L (135-145) 05/30/19 04:10 Potassium 4.3 mmol/L (3.5-5.0) 05/30/19 04:10 Chloride 107 mmol/L (101-111) 05/30/19 04:10 Carbon Dioxide 25 mmol/L (21-32) 05/30/19 04:10 Anion Gap 4.0 (6-13) L 05/30/19 04:10 BUN 14 mg/dL (6-20) 05/30/19 04:10 Creatinine 0.7 mg/dL (0.4-1.0) 05/30/19 04:10 Estimated GFR (MDRD) 93 (>89) 05/30/19 04:10 Glucose 127 mg/dL (70-100) H 05/30/19 04:10 POC Whole Bld Glucose 112 mg/dL (70 - 100) H 05/30/19 00:02 Calcium 7.6 mg/dL (8.5-10.3) L 05/30/19 04:10 Total Bilirubin 0.4 mg/dL (0.2-1.0) 05/28/19 20:58 AST 24 IU/L (10-42) 05/28/19 20:58 ALT 20 IU/L (10-60) 05/28/19 20:58 Alkaline Phosphatase 22 IU/L (42-121) L 05/28/19 20:58 Troponin I High Sens 2.9 ng/L (2.3-14.8) 05/28/19 20:58 Total Protein 7.6 g/dL (6.7-8.2) 05/28/19 20:58 Albumin 4.6 g/dL (3.2-5.5) 05/28/19 20:58 Globulin 3.0 g/dL (2.1-4.2) 05/28/19 20:58 Albumin/Globulin Ratio 1.5 (1.0-2.2) 05/28/19 20:58 Lipase 37 U/L (22-51) 05/28/19 20:58 Nasal Screen MRSA (PCR) NEGATIVE (NEGATIVE) 05/29/19 11:45 Urine Opiates Screen POSITIVE (NEGATIVE) H 05/29/19 11:45 Ur Oxycodone Screen NEGATIVE (NEGATIVE) 05/29/19 11:45 Urine Methadone Screen NEGATIVE (NEGATIVE) 05/29/19 11:45 Ur Propoxyphene Screen NEGATIVE (NEGATIVE) 05/29/19 11:45 Ur Barbiturates Screen NEGATIVE (NEGATIVE) 05/29/19 11:45 Ur Tricyclics Screen NEGATIVE (NEGATIVE) 05/29/19 11:45 Ur Phencyclidine Scrn NEGATIVE (NEGATIVE) 05/29/19 11:45 Ur Amphetamine Screen NEGATIVE (NEGATIVE) 05/29/19 11:45 U Methamphetamines Scrn NEGATIVE (NEGATIVE) 05/29/19 11:45 U Benzodiazepines Scrn POSITIVE (NEGATIVE) H 05/29/19 11:45 Urine Cocaine Screen NEGATIVE (NEGATIVE) 05/29/19 11:45 U Cannabinoids Screen NEGATIVE (NEGATIVE) 05/29/19 11:45 Blood Type A POSITIVE 05/29/19 17:03 Antibody Screen NEGATIVE 05/29/19 17:03 Crossmatch IS Only See Detail 05/29/19 17:03 - Procedures Procedures: Procedures BILAT ENDOS OCC TUBE NEC (09/21/14) RESECTION OF BI FALLOPIAN TUBE, VIA OPENING W PERC ENDO (07/15/18) RESECTION OF UTERUS, VIA OPENING W PERC ENDO (07/15/18)
[2019-05-30] MEDS: FERROUS SULFATE 325 MG TABLET PO SCH (10:50)
[2019-05-30] MEDS: cefTRIAXone 2 GM in SODIUM CHLORIDE 0.9% MINIBAG 100 ML IV SCH (10:56)
[2019-05-30] MEDS: AZITHROMYCIN INJ 500 MG in SODIUM CHLORIDE 0.9% 250 ML IV SCH (11:38)
[2019-05-30 14:08] LABS: HGB - HEMOGLOBIN 7.1 g/dL (12.0-16.0)
[2019-05-30] MEDS: GABAPENTIN 300 MG CAPSULE PO SCH (20:37)
[2019-05-31] MEDS: HYDROmorphone 0.5 MG/0.5 ML SYRINGE IVP PRN ×7 (00:13→20:54)
[2019-05-31] MEDS: SODIUM CHLORIDE FLUSH 0.9% 10 ML SYRINGE IVP PRN (00:13)
[2019-05-31] MEDS: D5NS W/20 MEQ KCL 1,000 ML IV SCH ×3 (01:07→17:59)
[2019-05-31] MEDS: SODIUM CHLORIDE FLUSH 0.9% 10 ML SYRINGE IVP SCH ×4 (01:11→20:54)
[2019-05-31 04:50] LABS: BASOPHILS # (AUTO) 0.1 10^3/uL (0.0-0.1); BASOPHILS % (AUTO) 0.6 %; EOSINOPHILS # (AUTO) 0.1 10^3/uL (0.0-0.7); EOSINOPHILS % (AUTO) 1.6 %; HGB - HEMOGLOBIN 9.6 g/dL (12.0-16.0); LYMPHOCYTES # (AUTO) 2.6 10^3/uL (1.5-3.5); LYMPHOCYTES % (AUTO) 31.8 %; MEAN CORPUSCULAR HEMOGLOBIN 28.7 pg (27.0-31.0); MEAN CORPUSCULAR HGB CONC 33.1 g/dL (32.0-36.0); MEAN CORPUSCULAR VOLUME 86.8 fL (81.0-99.0); MEAN PLATELET VOLUME 10.5 fL (7.9-10.8); MONOCYTES # (AUTO) 0.7 10^3/uL (0.0-1.0); MONOCYTES % (AUTO) 8.7 %; NEUTROPHILS # (AUTO) 4.6 10^3/uL (1.5-6.6); NEUTROPHILS % (AUTO) 56.9 %; PLT - PLATELET COUNT 109 10^3/uL (130-450); RED BLOOD COUNT 3.34 10^6/uL (4.20-5.40); RED CELL DISTRIBUTION WIDTH 23.6 % (12.0-15.0)
[2019-05-31 05:00] LABS: CALCIUM 7.8 mg/dL (8.5-10.3); CREATININE 0.6 mg/dL (0.4-1.0); MAGNESIUM 1.6 mg/dL (1.7-2.8)
[2019-05-31] MEDS ORDERED: MAGNESIUM SULFATE 2 GRAM 2 GM/50 ML BAG IV ONE (05:02)
[2019-05-31] MEDS ORDERED: MULTIVITAMIN TABLET PO SCH (08:00)
[2019-05-31] MEDS: cefTRIAXone 2 GM in SODIUM CHLORIDE 0.9% MINIBAG 100 ML IV SCH (08:27)
[2019-05-31] MEDS: FERROUS SULFATE 325 MG TABLET PO SCH (08:27)
[2019-05-31] MEDS ORDERED: polyethylene glycoL 3350 17 GM PACKET PO SCH (09:00)
[2019-05-31] MEDS: HYDROcod/ACETAM 5/325 MG TABLET PO PRN ×4 (09:08→22:02)
[2019-05-31] MEDS: AZITHROMYCIN INJ 500 MG in SODIUM CHLORIDE 0.9% 250 ML IV SCH (09:14)
--- NOTE | 2019-05-31 09:15 | XRAY Report ---
Reason: Chest tube in place for pneumothorax Procedure Date: 05/31/2019 Accession Number: [id number] / [id number] Procedure: XR - Chest 1 View X-Ray CPT Code: 05937 Final Report FULL RESULT: EXAM: CHEST RADIOGRAPHY EXAM DATE: 05/31/2019 08:58 AM. CLINICAL HISTORY: Chest tube in place for pneumothorax. COMPARISON: Yesterday. TECHNIQUE: 1 view. FINDINGS: Device: Right chest tube via lateral mid thoracic approach with distal tip overlying the medial base as before. Lungs/Pleura: Suspect right apical hydropneumothorax up to 4.5 cm thick. The peripheral lucency is less distinct than on the prior exam. Similar small to moderate basilar right pleural effusion with blunting of right costophrenic sulcus. Similar right lung opacities. Suspect mild left basilar atelectasis or infiltrate with small left pleural effusion. Clear upper left lung. Mediastinum: Stable cardiomediastinal silhouette. Other: No acute fracture evident. IMPRESSION: 1. Persistent suspicion of loculated right apical hydropneumothorax, with less conspicuous small pneumothorax component. 2. Similar small to moderate right basilar pleural effusion. 3. Stable right chest tube. 4. Similar right lung opacities consistent with atelectasis, asymmetric edema, or infiltrates. 5. Modest left basilar atelectasis or infiltrate with small left pleural effusion. RADIA
--- NOTE | 2019-05-31 12:36 | PROVIDER PROGRESS NOTE ---
Assessment/Plan - Problem List (1) Spontaneous pneumothorax Assessment/Plan: Improved; persistent apical fluid/air; no evidence of persistent air leak; rec: consult thoracic surgery regarding transfer for definitive therapy/VATS procedure. Discussed with pt who agrees. She is adamant about not having another chest tube placed. (2) Bloody pleural effusion Assessment/Plan: hemothorax s/p small caliber chest tube placement, likely related to anticoagulation therapy; improved with decreased drainage but persistent fluid in chest on CXR suggests incomplete evacuation. Rec: transfer for VATS procedure for clot evacuation, bleb resection, pleurodesis. Discussed with pt, who agrees. She does not want us to insert another chest tube. - Current Meds Current Meds: Current Medications Generic Name Dose Route Start Last Admin Trade Name Freq PRN Reason Stop Dose Admin Hydrocodone Bitart/Acetaminophen 1 tab 05/28/19 22:02 05/31/19 09:08 Shushan 5/325 PO 1 tab Q4HR PRN Administration Pain 5 to 7 Ferrous Sulfate 325 mg 05/30/19 09:00 05/31/19 08:27 Feosol PO 325 mg DAILY MARIA ISABEL Administration Gabapentin 300 mg 05/30/19 21:00 05/30/19 20:37 Neurontin PO 300 mg HS MARIA ISABEL Administration Hydromorphone HCl 0.5 mg 05/29/19 09:33 05/31/19 11:53 Dilaudid Inj Syringe IVP 0.5 mg Q2H PRN Administration Pain 8 to 10 Promethazine HCl 25 mg/ Sodium 51 mls @ 100 mls/hr 05/28/19 23:54 05/29/19 07:09 Chloride IV Infused Q6H PRN Infusion Nausea / Vomiting Sodium Chloride 500 mls @ 0 mls/hr 05/29/19 06:02 05/30/19 00:58 Normal Saline 0.9% IV Infused Q24H PRN Infusion TKO RATE TKO Potassium Chloride/Dextrose/Sod Cl 1,000 mls @ 125 mls/hr 05/29/19 10:00 05/31/19 10:25 IV 125 mls/hr .Q8H MARIA ISABEL Administration Ceftriaxone Sodium 2 gm/ 100 mls @ 200 mls/hr 05/30/19 11:00 05/31/19 09:27 Sodium Chloride IV 06/03/19 09:29 Infused DAILY MARIA ISABEL Infusion Azithromycin 500 mg/ Sodium 250 mls @ 250 mls/hr 05/30/19 11:00 05/31/19 10:40 Chloride IV 06/01/19 09:59 Infused DAILY MARIA ISABEL Infusion Multivitamins 1 tab 05/31/19 08:00 05/31/19 08:26 Theragran PO 1 tab DAILYWM MARIA ISABEL Administration Ondansetron HCl 4 mg 05/28/19 23:33 05/30/19 06:10 Zofran Inj IVP 4 mg Q4HR PRN Administration Nausea / Vomiting Polyethylene Glycol 17 gm 05/31/19 09:00 05/31/19 08:27 Miralax PO 17 gm DAILY MARIA ISABEL Administration Sodium Chloride 10 ml 05/28/19 22:02 05/31/19 00:13 Normal Saline Flush 0.9% IVP 10 ml PRN PRN Administration NEEDED PER PROVIDER ORDERS Sodium Chloride 10 ml 05/29/19 01:00 05/31/19 08:27 Normal Saline Flush 0.9% IVP 10 ml [id number],[id number],1700 MARIA ISABEL Administration - Lab Result Fish Bone Diagrams: 05/31/19 04:38 05/31/19 04:38 - Diagnostic Imaging Results Diagnostic Imaging Results: Final report reviewed, Read independently Diagnostic Imaging Results Comments: CXR today shows fluid/air right apex, fluid right base c/w persistent undrained fluid/blood in right chest. - Additional Planning Condition/Complexity: Stable Plan Discussed with:: Patient Time Spent: 15-30 minutes Subjective - Subjective Patient Reports: Feeling Better, Chest Pain (c/o pain from chest tube, especially with movement or inspiration) Objective Vital Signs: Vital Signs - 24 hr 05/30/19 05/30/19 05/30/19 13:00 14:00 15:00 Temperature Heart Rate Heart Rate [ 98 91 86 Monitoring electrodes] Respiratory 36 H 31 H 26 H Rate Blood Pressure Blood Pressure 114/63 124/66 118/64 [Right Brachial artery] O2 Saturation 96 98 96 05/30/19 05/30/19 05/30/19 17:00 18:13 18:24 Temperature 36.8 C 36.9 C Heart Rate 96 98 Heart Rate [ 97 Monitoring electrodes] Respiratory 24 24 26 H Rate Blood Pressure 120/68 122/59 L Blood Pressure 124/76 [Right Brachial artery] O2 Saturation 97 05/30/19 05/30/19 05/30/19 18:34 19:00 20:00 Temperature 36.9 C 36.9 C Heart Rate 98 Heart Rate [ 90 97 Monitoring electrodes] Respiratory 24 23 29 H Rate Blood Pressure 117/56 L Blood Pressure 118/52 L 127/69 [Right Brachial artery] O2 Saturation 96 96 05/30/19 05/30/19 05/30/19 21:00 21:42 22:10 Temperature 36.9 C 36.9 C Heart Rate 87 87 Heart Rate [ 89 Monitoring electrodes] Respiratory 28 H 34 H 34 H Rate Blood Pressure 120/69 120/69 Blood Pressure 116/61 [Right Brachial artery] O2 Saturation 97 05/30/19 05/30/19 05/31/19 22:31 23:00 00:00 Temperature 36.9 C 37.0 C Heart Rate 91 Heart Rate [ 84 87 Monitoring electrodes] Respiratory 29 H 27 H 30 H Rate Blood Pressure 121/66 Blood Pressure 117/61 123/73 [Right Brachial artery] O2 Saturation 96 95 05/31/19 05/31/19 05/31/19 01:00 01:08 02:00 Temperature 36.7 C 36.7 C Heart Rate 88 Heart Rate [ 79 78 Monitoring electrodes] Respiratory 26 H 26 H 20 Rate Blood Pressure 119/65 Blood Pressure 119/65 109/62 [Right Brachial artery] O2 Saturation 97 97 05/31/19 05/31/19 05/31/19 03:00 04:53 05:00 Temperature Heart Rate Heart Rate [ 68 76 75 Monitoring electrodes] Respiratory 15 25 H 18 Rate Blood Pressure Blood Pressure 100/62 117/71 111/57 L [Right Brachial artery] O2 Saturation 97 99 98 05/31/19 05/31/19 05/31/19 06:00 08:00 09:00 Temperature Heart Rate Heart Rate [ 89 92 86 Monitoring electrodes] Respiratory 29 H 16 21 Rate Blood Pressure Blood Pressure 112/64 129/75 119/67 [Right Brachial artery] O2 Saturation 98 96 98 05/31/19 11:00 Temperature Heart Rate Heart Rate [ 83 Monitoring electrodes] Respiratory 35 H Rate Blood Pressure Blood Pressure 124/79 [Right Brachial artery] O2 Saturation 97 Oxygen O2 Source Nasal cannula I&O (Last 24 Hrs): Intake and Output Totals x24h 05/29/19 05/30/19 05/31/19 23:59 23:59 23:59 Intake Total 3110.250 4641.249 2086.917 Output Total 1527 3240 2750 Balance 537.557 1442.249 -663.083 General: Alert, Oriented x3, Cooperative, Moderate distress Neck: Supple, No JVD Neuro: Alert Cardiovascular: Regular rate, Normal S1, Normal S2 Respiratory: No respiratory distress, Other (decreased breath sounds in right base and right apex, ow clear Chest tube patent, with fluid in tubing shifting with respiration; no air leak noted; 300 cc serosanguinous fluid out over past 18 hours.) - Results Results: Laboratory Results WBC 8.0 x10^3/uL (4.8-10.8) 05/31/19 04:38 RBC 3.34 10^6/uL (4.20-5.40) L 05/31/19 04:38 Hgb 9.6 g/dL (12.0-16.0) L 05/31/19 04:38 Hct 29.0 % (37.0-47.0) L 05/31/19 04:38 MCV 86.8 fL (81.0-99.0) 05/31/19 04:38 MCH 28.7 pg (27.0-31.0) 05/31/19 04:38 MCHC 33.1 g/dL (32.0-36.0) 05/31/19 04:38 RDW 23.6 % (12.0-15.0) H 05/31/19 04:38 Plt Count 109 10^3/uL (130-450) L 05/31/19 04:38 MPV 10.5 fL (7.9-10.8) 05/31/19 04:38 Neut # (Auto) 4.6 10^3/uL (1.5-6.6) 05/31/19 04:38 Lymph # (Auto) 2.6 10^3/uL (1.5-3.5) 05/31/19 04:38 Lassen # (Auto) 0.7 10^3/uL (0.0-1.0) 05/31/19 04:38 Eos # (Auto) 0.1 10^3/uL (0.0-0.7) 05/31/19 04:38 Baso # (Auto) 0.1 10^3/uL (0.0-0.1) 05/31/19 04:38 Absolute Nucleated RBC 0.00 x10^3/uL 05/31/19 04:38 Total Counted 100 05/29/19 05:45 Band Neuts % (Manual) 3 % (0-10) 05/29/19 05:45 Abnorm Lymph % (Manual) 0 % 05/29/19 05:45 Nucleated RBC % 0.0 /100WBC 05/31/19 04:38 Neutrophils # (Manual) 23.4 10^3/uL (1.5-6.6) H 05/29/19 05:45 Lymphocytes # (Manual) 1.0 10^3/uL (1.5-3.5) L 05/29/19 05:45 Monocytes # (Manual) 0.5 10^3/uL (0.0-1.0) 05/29/19 05:45 Eosinophils # (Manual) 0.0 10^3/uL (0-0.7) 05/29/19 05:45 Basophils # (Manual) 0.0 10^3/uL (0-0.1) 05/29/19 05:45 Differential Comment MANUAL DIFFERENTIAL 05/29/19 05:45 Manual Slide Review Indicated 05/30/19 04:10 WBC Morphology NORMAL APPEARANCE (NORMAL) 05/30/19 04:10 Platelet Estimate DECREASED (<130,000) (NORMAL) 05/30/19 04:10 Platelet Morphology NORMAL APPEARANCE (NORMAL) 05/30/19 04:10 RBC Morph Micro Appear 2+ HYPOCHROMASIA (NORMAL) DIMORPHIC RBCS (NORMAL) 05/29/19 05:45 RBC Morph Micro Appear 2+ HYPOCHROMASIA (NORMAL) 2+ ANISOCYTOSIS (NORMAL) 05/29/19 14:05 RBC Morph Micro Appear 2+ HYPOCHROMASIA (NORMAL) 2+ ANISOCYTOSIS (NORMAL) 05/29/19 14:05 RBC Morph Micro Appear 3+ ANISOCYTOSIS (NORMAL) 1+ HYPOCHROMASIA (NORMAL) 05/30/19 04:10 RBC Morph Micro Appear 3+ ANISOCYTOSIS (NORMAL) 1+ HYPOCHROMASIA (NORMAL) 05/30/19 04:10 Bld Gas Analysis Time 0944 05/29/19 09:44 Sample Site RIGHT RADIAL 05/29/19 09:44 ABG pH 7.39 (7.35-7.45) 05/29/19 09:44 ABG pCO2 38 mmHg (34-45) 05/29/19 09:44 ABG pO2 61 mmHg (80-100) L 05/29/19 09:44 ABG HCO3 22.8 mmol/L (22.0-26.0) 05/29/19 09:44 ABG Total CO2 24.0 MMOL/L (21.0-29.0) 05/29/19 09:44 ABG O2 Saturation 91 % (94-98) L 05/29/19 09:44 ABG Oximetry Spot Check 96 % 05/29/19 09:44 ABG Base Excess -1.8 mmol/L (-2.0-3.0) 05/29/19 09:44 Mike Test POSITIVE 05/29/19 09:44 VBG pH 7.348 (7.31-7.41) 05/29/19 17:03 VBG pCO2 43.4 mmHg (41-51) 05/29/19 17:03 VBG pO2 29.6 mmHg (25-47) 05/29/19 17:03 VBG HCO3 23.3 mmol/L (23-28) 05/29/19 17:03 VBG Total CO2 24.6 mmol/L (24-29) 05/29/19 17:03 VBG O2 Saturation 53.5 % (60-80) L 05/29/19 17:03 VBG Base Excess -2.2 mmol/L (-2 - +2) L 05/29/19 17:03 Respiration Rate 32 b/min 05/29/19 09:44 O2 Delivery Device NASAL CANNULA 05/29/19 09:44 O2 Liters/Min 2.00 LPM 05/29/19 09:44 Sodium 139 mmol/L (135-145) 05/31/19 04:38 Potassium 3.9 mmol/L (3.5-5.0) 05/31/19 04:38 Chloride 109 mmol/L (101-111) 05/31/19 04:38 Carbon Dioxide 25 mmol/L (21-32) 05/31/19 04:38 Anion Gap 5.0 (6-13) L 05/31/19 04:38 BUN 5 mg/dL (6-20) L 05/31/19 04:38 Creatinine 0.6 mg/dL (0.4-1.0) 05/31/19 04:38 Estimated GFR (MDRD) 111 (>89) 05/31/19 04:38 Glucose 96 mg/dL (70-100) 05/31/19 04:38 POC Whole Bld Glucose 102 mg/dL (70 - 100) H 05/30/19 12:07 Calcium 7.8 mg/dL (8.5-10.3) L 05/31/19 04:38 Phosphorus 3.0 mg/dL (2.5-4.6) 05/31/19 04:38 Magnesium 1.6 mg/dL (1.7-2.8) L 05/31/19 04:38 Total Bilirubin 0.4 mg/dL (0.2-1.0) 05/28/19 20:58 AST 24 IU/L (10-42) 05/28/19 20:58 ALT 20 IU/L (10-60) 05/28/19 20:58 Alkaline Phosphatase 22 IU/L (42-121) L 05/28/19 20:58 Troponin I High Sens 14.8 ng/L (2.3-14.8) 05/31/19 00:21 Total Protein 7.6 g/dL (6.7-8.2) 05/28/19 20:58 Albumin 2.5 g/dL (3.2-5.5) L 05/31/19 04:38 Globulin 3.0 g/dL (2.1-4.2) 05/28/19 20:58 Albumin/Globulin Ratio 1.5 (1.0-2.2) 05/28/19 20:58 Lipase 37 U/L (22-51) 05/28/19 20:58 Nasal Screen MRSA (PCR) NEGATIVE (NEGATIVE) 05/29/19 11:45 Urine Opiates Screen POSITIVE (NEGATIVE) H 05/29/19 11:45 Ur Oxycodone Screen NEGATIVE (NEGATIVE) 05/29/19 11:45 Urine Methadone Screen NEGATIVE (NEGATIVE) 05/29/19 11:45 Ur Propoxyphene Screen NEGATIVE (NEGATIVE) 05/29/19 11:45 Ur Barbiturates Screen NEGATIVE (NEGATIVE) 05/29/19 11:45 Ur Tricyclics Screen NEGATIVE (NEGATIVE) 05/29/19 11:45 Ur Phencyclidine Scrn NEGATIVE (NEGATIVE) 05/29/19 11:45 Ur Amphetamine Screen NEGATIVE (NEGATIVE) 05/29/19 11:45 U Methamphetamines Scrn NEGATIVE (NEGATIVE) 05/29/19 11:45 U Benzodiazepines Scrn POSITIVE (NEGATIVE) H 05/29/19 11:45 Urine Cocaine Screen NEGATIVE (NEGATIVE) 05/29/19 11:45 U Cannabinoids Screen NEGATIVE (NEGATIVE) 05/29/19 11:45 Blood Type A POSITIVE 05/29/19 17:03 Antibody Screen NEGATIVE 05/29/19 17:03 Crossmatch IS Only See Detail 05/29/19 17:03 - Procedures Procedures: Procedures BILAT ENDOS OCC TUBE NEC (09/21/14) RESECTION OF BI FALLOPIAN TUBE, VIA OPENING W PERC ENDO (07/15/18) RESECTION OF UTERUS, VIA OPENING W PER[facility] ENDO (07/15/18)
[2019-05-31] MEDS: GABAPENTIN 300 MG CAPSULE PO SCH (20:54)
--- NOTE | 2019-05-31 22:46 | Discharge Plan ---
Discharge Plan Problem Reviewed?: Yes Disposition: 02 Transfer Acute Care Hosp Condition: Stable Diet: Regular Activity Restrictions: Up with assistance Instruction Topics: Ceftriaxone injection, Azithromycin for infusion Health Concerns: 1. Spontaneous Pneumothorax: Transferring to [facility] for Cardiothoracic Surgery Consult 2. Hemothorax: Transferring to [facility] for Cardiothoracic Surgery Consult 3. Community Acquired Pneumonia: Complete antibiotic treatment. Azithromycin 2 more days. Rocephin X 3more days 4. Superficial Venous thrombosis: Stop xarelto 5 Inron Deficiency Anemia: Chronic. Continue iron sulfate supplement. Follow up with Personal Protection Specialist as planned Plan of Treatment: 1. Spontaneous Pneumothorax: Transferring to [facility] for Cardiothoracic Surgery Consult 2. Hemothorax: Transferring to [facility] for Cardiothoracic Surgery Consult 3. Community Acquired Pneumonia: Complete antibiotic treatment. Azithromycin 2 more days. Rocephin X 3more days 4. Superficial Venous thrombosis: Stop xarelto 5 Inron Deficiency Anemia: Chronic. Continue iron sulfate supplement. Follow up with Personal Protection Specialist as planned Care Goals: 1. Spontaneous Pneumothorax: Transferring to [facility] for Cardiothoracic Surgery Consult 2. Hemothorax: Transferring to [facility] for Cardiothoracic Surgery Consult 3. Community Acquired Pneumonia: Complete antibiotic treatment. Azithromycin 2 more days. Rocephin X 3more days 4. Superficial Venous thrombosis: Stop xarelto 5 Inron Deficiency Anemia: Chronic. Continue iron sulfate supplement. Follow up with Personal Protection Specialist as planned Assessment: Patient and spouse understand and are agreeable to above plan. No Smoking: If you smoke, Please STOP! Call for help. Follow-up with: Tara Cervantes ARNP [Primary Care Provider] -
--- NOTE | 2019-05-31 22:49 | DISCHARGE SUMMARY ---
"Discharge Summary Admit Date: 05/28/19 Discharge Date: 07/01/19 Discharging Provider: Steve Greer Primary Care Provider: Tara Beard Code Status: Attempt Resuscitation Condition at Discharge: Stable Discharge Disposition: 02 Transfer Acute Care Hosp Discharge Facility Name: [facility] - DIAGNOSES Admission Diagnoses: 1. Spontaneous Pneumothorax 2. Chest Pain 3. Iron Deficiency Anemia 4. Acute Superficial thrombosis of right lower extremity Discharge Diagnoses with Status of Each Condition: 1. Spontaneous Pneumothorax: Chest tube in place. Improved 2. Chest Pain: Improved 3. Iron Deficiency Anemia: Chronic 4. Acute Superficial thrombosis of right lower extremity: Persists 5. Community Acquired Pneumonia: On antibiotics - HPI History of Present Illness: Patient is a 38 y/o female with Hx of hypertension and iron deficiency anemia. She sees Dr Russo at the [facility] for her anemia and recently had an iron infusion 4 weeks ago. She presented to the ED with complain of right-sided chest pain. She had history of left-sided chest pain which has been worked up in the past. However this right-sided pain was new. Chest xray done yesterday was negative. She was found to have a right lower extremity superficial venous thrombosis. It was explained by radiology as nearing the deep venous circulation and that there was concern for potential extension into the deep circulation. As a result she was started on xarelto. Her last dose was this morning. She presented to the ED today because the chest pain persisted. CXR done showed a complete collapse of the right lung, consistent with a pneumothorax. She had a thoravent chest tube placed in the ED and she was presented for admission. At bedside the patient is nauseous and vomiting. She appears pale and is in a significant amount of pain. She complains of pain between her shoulder blades. She required 4L of oxygen to maintain an O2Sat at 96%. Dr Lam with general surgery was contacted and is agreeable to see the patient for chest tube management. - CONSULTS | PROCEDURES Consultations: General Surgery Procedures: Chest tube placement - HOSPITAL COURSE Hospital Course: Patient had an initial chest placed (thoravent) in the ED via anterior chest wall approach. This was complicated by hemothorax consistent with a large right pleural effusion noted on CT of the chest done shortly after admission. The following morning a right mid-axillary chest tube was placed. Over 3 days there has been 2200ml of fluid extracted. He hemoglobin dropped from 13.5 to 7.2. She received a total of 4 units of PRBC. Last hemoglobin this morning was 8.1. Initially pleural effusion was sanguinous but has steadily improved to serosanguinous. The amount of output decreased significantly over time. Chest xray was repeated daily. The last one done today 05/31/19 showed Persistent suspicion of loculated right apical hydropneumothorax with less conspicuous small pneumothorax component. Similar small to moderate bibasilar pleural effusion and similar right lung opacities with atelectasis, asymetric edema or infiltrates. Modest left basilar atelectasis or infiltrate with small left pleural effusion. Initial WBC was 10.7, then it increased to 24.9. Most recent WBC was 11.8. Patient has been on rocephin and azithromycin for 2 days. She did not want another chest tube place. The general surgeon recommended transfer for VATS procedure for clot evacuation, bleb resection and pleurodesis Dr Forbes (Cardiothoracic surgeon) at [facility] was contacted. He agreed to see the patient in consult. Dr Nelson Almonte with the hospitalist service was contacted who accepted the patient to [facility]. The patient is being transferred via ALS ambulance. - ALLERGIES Allergies/Adverse Reactions: Allergies Allergy/AdvReac Type Severity Reaction Status Date / Time No Known Drug Allergies Allergy Verified 04/07/19 13:48 - MEDICATIONS Home Medications: Ambulatory Orders Medication Instructions Recorded Confirmed Ferrous Sulfate 325 mg PO DAILY 07/01/18 05/29/19 Multivitamin [Multiple Vitamins] 1 each PO DAILY 07/01/18 05/29/19 Gabapentin [Neurontin] 300 mg PO HS 30 Days #90 capsule 02/24/19 04/07/19 - PHYSICAL EXAM AT DISCHARGE General Appearance: positive: Alert, Moderate distress Eyes Bilateral: positive: PERRL, EOMI ENT: positive: ENT inspection nml Neck: positive: No JVD, Trachea midline Respiratory: positive: Other (chest tender at sight of tube placement. Tachypnea. Coarse breath sounds) Cardiovascular: positive: Regular rate & rhythm Abdomen: positive: Non-tender, Nml bowel sounds, No distention. negative: Guarding, Rebound Skin: positive: Dry, Pallor Extremities: positive: Non-tender, Full ROM, Nml appearance, No pedal edema Neurologic/Psychiatric: positive: Oriented x3 - LABS Result Diagrams: 05/31/19 04:38 05/31/19 04:38 - FOLLOW UP Follow Up: PCP withing 5-7 day of discharge from [facility] - TIME SPENT Time Spent in Discharge (Minutes): 35"
[2019-06-01 01:07] VITALS: BP 114/99
[2019-06-01] MEDS: HYDROmorphone 0.5 MG/0.5 ML SYRINGE IVP PRN (01:42)
[2019-06-01] MEDS: SODIUM CHLORIDE FLUSH 0.9% 10 ML SYRINGE IVP SCH (01:43)
[2019-06-01] MEDS: ONDANSETRON 4 MG/2 ML VIAL IVP PRN (01:43)
[2019-06-01] MEDS: D5NS W/20 MEQ KCL 1,000 ML IV SCH (01:47)
[2019-06-01] MEDS: HYDROcod/ACETAM 5/325 MG TABLET PO PRN (02:07)
== END 2019-06-01 02:16 | disposition short-term general hospital (02) | DRG 199 ==
LOC: ED 20:44 → MS2 22:02 → ICU 05-29 09:21 → MS2 05-29 09:27 → ICU 05-29 10:23
PROVIDERS: ADMIT Internal Medicine; ATTEND Internal Medicine
PROC: 30233N1 Transfusion of Nonautologous Red Blood Cells into Peripheral Vein, Percutaneous Approach (ICD-10-PCS; principal; 2019-05-29)
DX: J93.83 Other pneumothorax (principal); R57.8 Other shock; J18.9 Pneumonia, unspecified organism; J94.2 Hemothorax; D68.318 Other hemorrhagic disorder due to intrinsic circulating anticoagulants, antibodies, or inhibitors; J95.830 Postprocedural hemorrhage of a respiratory system organ or structure following a respiratory system procedure; I82.811 Embolism and thrombosis of superficial veins of right lower extremity; I47.1 Supraventricular tachycardia; D62 Acute posthemorrhagic anemia; Y82.8 Other medical devices associated with adverse incidents; Y92.238 Other place in hospital as the place of occurrence of the external cause; T45.515A Adverse effect of anticoagulants, initial encounter; Y92.009 Unspecified place in unspecified non-institutional (private) residence as the place of occurrence of the external cause; J43.9 Emphysema, unspecified; F17.210 Nicotine dependence, cigarettes, uncomplicated; I10 Essential (primary) hypertension; R35.0 Frequency of micturition
CPT/HCPCS: 32551; 36415; 36600; 71045; 71275; 80048; 80053; 80306; 82040; 82803; 83690; 83735; 84100; 84484; 85014; 85018; 85025; 86850; 86900; 86901; 86920; 87150; 93005; 96374; 96375; 99152; 99285; 99291; A9270; J1170; J7040; P9016; Q9967; 85027; 94770

== ENCOUNTER 2019-06-18 13:54 | Outpatient (CLI) | payer MEDICAID ==
--- NOTE | 2019-06-18 22:08 | XRAY Report ---
Reason: PNEUMOTHRAX Procedure Date: 06/18/2019 Accession Number: [id number] / [id number] Procedure: XRN - Chest 2 View X-Ray CPT Code: 48680 Final Report FULL RESULT: EXAM: CHEST RADIOGRAPHY EXAM DATE: 06/18/2019 02:07 PM. CLINICAL HISTORY: Pneumothorax. Right chest pain. COMPARISON: CHEST 1 VIEW 05/31/2019 8:40 AM. TECHNIQUE: 2 views. FINDINGS: Lungs/Pleura: Small right pleural effusion including loculated components at the apex and lateral lower right hemithorax, decreased from before. Mild wispy right basilar airspace opacity, also decreased. Left lung is clear. No pneumothorax. No interstitial abnormality or pulmonary vascular congestion. Mediastinum: Heart and mediastinal contours are unremarkable. Other: None. IMPRESSION: 1. Decreased nail small multiloculated right pleural effusion. No pneumothorax. 2. Improved right lung aeration with mild wispy residual scarring or atelectasis at the right base. RADIA
== END 2019-06-18 13:55 | disposition home or self-care (01) ==
LOC: DI.N 13:54
PROVIDERS: ATTEND Nurse Practitioner Gerontology
DX: J90 Pleural effusion, not elsewhere classified (principal)
CPT/HCPCS: 71046

== ENCOUNTER 2019-07-05 08:00 | Outpatient (CLI) | payer MEDICAID ==
--- NOTE | 2019-07-05 12:01 | XRAY Report ---
Reason: PNEUMOTHORAX Procedure Date: 07/05/2019 Accession Number: [id number] / [id number] Procedure: WCP - Chest 2 View X-Ray CPT Code: 59902 Final Report FULL RESULT: EXAM: CHEST RADIOGRAPHY EXAM DATE: 07/05/2019 11:35 AM. CLINICAL HISTORY: PNEUMOTHORAX. COMPARISON: CHEST 2 VIEW 06/18/2019 2:14 PM. TECHNIQUE: 2 views. FINDINGS: Lungs/Pleura: Probable tiny right apical pneumothorax with maximal pleural separation of 8 mm. No left pneumothorax. Decreased right basilar pulmonary opacities. Possible trace right basal pleural effusion. Mediastinum: Stable heart size and mediastinum. Other: None. IMPRESSION: 1. Probable tiny right apical pneumothorax. 2. Right basilar opacities are decreased. 3. Possible tiny right basal pleural effusion. RADIA
== END 2019-07-05 23:59 | disposition home or self-care (01) ==
LOC: DI.WCP 08:00
PROVIDERS: ATTEND Nurse Practitioner Family
DX: J93.9 Pneumothorax, unspecified (principal); R91.8 Other nonspecific abnormal finding of lung field
CPT/HCPCS: 71046

== ENCOUNTER 2019-10-05 14:46 | Outpatient (CLI) | payer MEDICAID | END 2019-10-05 23:59 | disposition home or self-care (01) | LOC: LAB 14:46 | PROVIDERS: ATTEND Family Medicine | DX: J90 Pleural effusion, not elsewhere classified (principal); Z20.828 Contact with and (suspected) exposure to other viral communicable diseases | CPT/HCPCS: 81599 ==

== ENCOUNTER 2019-10-05 15:40 | Outpatient (CLI) | payer MEDICAID ==
--- NOTE | 2019-10-05 17:15 | XRAY Report ---
PROCEDURE: Chest 2 View X-Ray INDICATIONS: PLEURAL EFFUSION,RT,EMPHYSEMA TECHNIQUE: 2 view(s) of the chest. COMPARISON: None. FINDINGS: Surgical changes and devices: None. Lungs and pleura: No pleural effusions or pneumothorax. Lungs are clear. Mediastinum: Mediastinal contours are normal. Heart size is normal. Bones and chest wall: No suspicious bony abnormalities. Soft tissues appear unremarkable. IMPRESSION: Chest without acute cardiopulmonary abnormalities or focal airspace disease. Reviewed by: Johnny Leroy MD on 10/05/2019 5:14 PM PDT Approved by: Johnny Leroy MD on 10/05/2019 5:14 PM PDT Station ID: [id number]
== END 2019-10-05 15:41 | disposition home or self-care (01) ==
LOC: DI 15:40
PROVIDERS: ATTEND Family Medicine
DX: J90 Pleural effusion, not elsewhere classified (principal); J43.9 Emphysema, unspecified
CPT/HCPCS: 71046

== ENCOUNTER 2020-02-18 08:27 | Outpatient (CLI) | payer MEDICAID ==
[2020-02-18 08:55] LABS: CHOL/HDL RATIO 3.1 (<4.4); CHOLESTEROL 193 mg/dL; HDL CHOLESTEROL 63 mg/dL; LDL CHOLESTEROL,CALCULATED 119 mg/dL; LDL/HDL RATIO 1.9 (<4.4); VLDL CHOLESTEROL 11 mg/dL
== END 2020-02-18 08:28 | disposition home or self-care (01) ==
LOC: LAB 08:27
PROVIDERS: ATTEND Internal Medicine Cardiovascular Disease
DX: R00.2 Palpitations (principal); Z13.220 Encounter for screening for lipoid disorders
CPT/HCPCS: 36415; 80061; 82088; 83721

== ENCOUNTER 2020-06-02 12:01 | Outpatient (CLI) | payer MEDICAID ==
[2020-06-02 18:42] LABS: ALBUMIN 4.4 g/dL (3.2-5.5); ALBUMIN/GLOBULIN RATIO 1.6 (1.0-2.2); BILIRUBIN,TOTAL 0.4 mg/dL (0.2-1.0); CALCIUM 9.1 mg/dL (8.5-10.3); CREATININE 0.8 mg/dL (0.4-1.0); POTASSIUM 4.2 mmol/L (3.5-5.0); TOTAL PROTEIN 7.2 g/dL (6.7-8.2)
[2020-06-02 19:58] LABS: RHEUMATOID FACTOR NEGATIVE (Negative)
[2020-06-05 12:16] LABS: ANA SCREEN NEGATIVE (NEGATIVE)
== END 2020-06-02 12:02 | disposition home or self-care (01) ==
LOC: LAB.N 12:01
PROVIDERS: ATTEND Internal Medicine Pulmonary Disease
DX: E87.6 Hypokalemia (principal); R09.1 Pleurisy
CPT/HCPCS: 36415; 80053; 81599; 82088; 84244; 85651; 86038; 86140; 86430

== ENCOUNTER 2021-05-22 12:22 | Outpatient (CLI) | payer MEDICAID ==
[2021-05-22] MEDS ORDERED: IOVERSOL 320 100 ML VIAL IVP ONE ×2 (12:35→16:17)
--- NOTE | 2021-05-22 17:47 | CT Report ---
PROCEDURE: CT chest with contrast INDICATIONS: MEDIASTINAL MASS CONTRAST: IV CONTRAST: Optiray 320 ml: 100 PO CONTRAST: *NO PO CONTRAST TECHNIQUE: After the administration of intravenous contrast, 1 mm axial images were acquired from the pulmonary apices through the posterior costophrenic angles. Axial 5 mm soft tissue kernel reconstructions were performed as well as 8 mm axial MIP and coronal and sagittal 5 mm reformations. For radiation dose reduction, the following was used: automated exposure control, adjustment of mA and/or kV according to patient size. COMPARISON: None. FINDINGS: Image quality: Excellent. Lungs and pleura: Moderate pulmonary emphysematous changes noted particularly in the lung apices. No acute air space opacities. No pleural effusions or pneumothorax. Central and peripheral airways ar e patent and normal in caliber. Mediastinum: Heart size is normal. No pericardial effusion. No mediastinal or hilar adenopathy by size criteria. Thoracic aorta and central pulmonary arteries are normal in size. Esophagus is osito l in caliber. No hiatal hernia. Bones and chest wall: No suspicious bony lesions. No vertebral body compression fractures. No axil odalys or supraclavicular adenopathy by size criteria. The thyroid is normal in size and there are no incidental findings.. Abdomen: Visualized upper abdominal solid organs appear normal. Upper abdominal bowel loops are nor mal in caliber. IMPRESSION: Moderate pulmonary emphysema without pulmonary nodule, infiltrate or pneumothorax. No evidence of mediastinal mass or adenopathy Reviewed by: Hoang Montoya MD on 05/22/2021 4:45 PM AK Approved by: Hoang Montoya MD on 05/22/2021 4:45 PM AKST Station ID: [id number]
== END 2021-05-22 12:23 | disposition home or self-care (01) ==
LOC: DI 12:22
PROVIDERS: ATTEND Internal Medicine
DX: J43.9 Emphysema, unspecified (principal)
CPT/HCPCS: 71260; Q9967

== ENCOUNTER 2022-02-25 08:58 | Outpatient (CLI) | payer MEDICAID ==
[2022-02-25 09:43] LABS: THYROID STIMULATING HORMONE 1.76 uIU/mL (0.34-5.60)
[2022-02-25 10:08] LABS: CHOL/HDL RATIO 3.2 (<4.4); CHOLESTEROL 205 mg/dL; HDL CHOLESTEROL 64 mg/dL; LDL CHOLESTEROL,CALCULATED 125 mg/dL; TRIGLYCERIDES 79 mg/dL; VLDL CHOLESTEROL 16 mg/dL
[2022-02-26 16:08] LABS: ANTI-DNA (DS) AB QN 2 IU/mL (0-9); CENTROMERE B ANTIBODIES <0.2 AI (0.0-0.9); CHROMATIN ANTIBODIES <0.2 AI (0.0-0.9); JO-1 AB <0.2 AI (0.0-0.9); RIBOSOMAL P ANTIBODIES <0.2 AI (0.0-0.9); RNP ANTIBODIES <0.2 AI (0.0-0.9); SCLERODERMA-70 ANTIBODIES <0.2 AI (0.0-0.9); SJOGREN'S ANTI-SS-A <0.2 AI (0.0-0.9); SJOGREN'S ANTI-SS-B <0.2 AI (0.0-0.9); SMITH ANTIBODIES <0.2 AI (0.0-0.9); SMITH/RNP ANTIBODIES <0.2 AI (0.0-0.9)
== END 2022-02-25 08:59 | disposition home or self-care (01) ==
LOC: LAB 08:58
PROVIDERS: ATTEND Nurse Practitioner
DX: F41.9 Anxiety disorder, unspecified (principal); Z13.220 Encounter for screening for lipoid disorders; R76.8 Other specified abnormal immunological findings in serum
CPT/HCPCS: 36415; 80061; 83721; 84443; 86225; 86235

== ENCOUNTER 2022-07-30 16:05 | Outpatient (CLI) | payer MEDICAID ==
--- NOTE | 2022-07-30 20:12 | XRAY Report ---
PROCEDURE: Chest 2 View X-Ray INDICATIONS: EMPHYSEMA TECHNIQUE: 2 views of the chest were acquired. COMPARISON: 10/05/2019, 05/22/2021 FINDINGS: Surgical changes and devices: None. Lungs and pleura: Mild hyperinflation. No focal infiltrate, nodule or pneumothorax Mediastinum: Mediastinal contours appear normal. Heart size is normal. Bones and chest wall: No suspicious bony lesions. Overlying soft tissues appear unremarkable. IMPRESSION: Mild hyperinflation without acute cardiopulmonary findings Reviewed by: Hoang Montoya MD on 07/30/2022 7:10 PM AKDT Approved by: Hoang Montoya MD on 07/30/2022 7:10 PM AKDT Station ID: [id number]
== END 2022-07-30 16:06 | disposition home or self-care (01) ==
LOC: DI 16:05
PROVIDERS: ATTEND Nurse Practitioner
DX: J43.9 Emphysema, unspecified (principal)

== ENCOUNTER 2023-10-13 13:45 | Outpatient (CLI) | payer MEDICAID ==
--- NOTE | 2023-10-13 22:06 | XRAY Report ---
PROCEDURE: Foot 3+V RT INDICATIONS: CONTUSION OF RIGHT FOOT TECHNIQUE: 3 views of the foot were acquired. COMPARISON: X-ray foot 03/09/2018 FINDINGS: Bones: No fractures or dislocations. No suspicious bony lesions. Soft tissues: No tibiotalar joint effusion. Achilles tendon appears normal. IMPRESSION: No visualized acute fracture or dislocation. However, occult injury cannot be excluded. Recommend misael rt interval imaging follow-up in 7-10 days as clinically indicated for additional evaluation. Reviewed by: Angela Hahn MD on 10/13/2023 10:05 PM PDT Approved by: Angela Hahn MD on 10/13/2023 10:05 PM PDT Station ID: [id number]
== END 2023-10-13 14:00 | disposition home or self-care (01) ==
LOC: DI.N 13:45
PROVIDERS: ATTEND Physician Assistant
DX: S90.31XA Contusion of right foot, initial encounter (principal)

== ENCOUNTER 2023-11-10 12:45 | Outpatient (CLI) | payer MEDICAID ==
--- NOTE | 2023-11-10 16:06 | XRAY Report ---
PROCEDURE: Ankle 3+V RT INDICATIONS: UNSPECIFIED SPRAIN OF RIGHT FOOT, SEQUELA TECHNIQUE: 3 views of the ankle were acquired. COMPARISON: 10/13/2023. FINDINGS: Bones: No fractures or dislocations. Ankle mortise is normally aligned. No suspicious bony lesions . Soft tissues: No tibiotalar joint effusion. Achilles tendon appears normal. IMPRESSION: No acute bony abnormality. Reviewed by: Rogerio Dumas MD on 11/10/2023 4:05 PM PDT Approved by: Rogerio Dumas MD on 11/10/2023 4:05 PM PDT Station ID: [id number]
== END 2023-11-10 13:00 | disposition home or self-care (01) ==
LOC: DI.N 12:45
PROVIDERS: ATTEND Physician Assistant
DX: M25.571 Pain in right ankle and joints of right foot (principal); S93.601S Unspecified sprain of right foot, sequela

== ENCOUNTER 2023-11-26 09:21 | Outpatient (CLI) | payer MEDICAID ==
--- NOTE | 2023-11-26 09:47 | XRAY Report ---
PROCEDURE: Foot 3+V RT (Weight Bearing) INDICATIONS: SPRAIN OF RIGHT FOOT TECHNIQUE: 3 views of the foot were acquired. COMPARISON: None. FINDINGS: Bones: No fractures or dislocations. No suspicious bony lesions. Soft tissues: No tibiotalar joint effusion. Achilles tendon appears normal. IMPRESSION: No acute bony abnormality. Reviewed by: Ryan Benson MD on 11/26/2023 9:45 AM PDT Approved by: Ryan Benson MD on 11/26/2023 9:45 AM PDT Station ID: [id number]
== END 2023-11-26 09:22 | disposition home or self-care (01) ==
LOC: DI 09:21
PROVIDERS: ATTEND Orthopaedic Surgery
DX: S93.601A Unspecified sprain of right foot, initial encounter (principal)